=== PATIENT | male | born 1970 | race Caucasian/White ===

== ENCOUNTER 2021-10-25 06:35 | Emergency (ER) | payer MEDICAID ==
[~2021-10-25] VITALS: Ht 182.9 cm; Wt 92.1 kg
[2021-10-25 06:43] VITALS: BP 193/115
--- NOTE | 2021-10-25 06:45 | NUR ---
patient to bed 9 ambulatory
--- NOTE | 2021-10-25 06:50 | NUR ---
Patient BIB by family from home. C/O abdominal pain, nausea, vomitting x 3 days. Patient reported, had abdominal pain, nausea, vomitting since Monday or Monday. Seen by JALEN in [facility], Normal results (per patient . A/O, X4, abdominal pain, pain rate 10/10, bloating, nausea and vomitting.
--- NOTE | 2021-10-25 06:55 | NUR ---
Dr. Leung examining patient.
[2021-10-25] MEDS ORDERED: KETOROLAC 30 MG/ML VIAL IVP ONE (07:00)
[2021-10-25] MEDS ORDERED: NACL 0.9% 1,000 ML IV SCH (07:00)
[2021-10-25] MEDS ORDERED: ONDANSETRON 4 MG/2 ML VIAL IVP ONE (07:00)
--- NOTE | 2021-10-25 07:20 | NUR ---
Report given to KENAN Cox/Morris GRAYSON and endorse care of patient.
--- NOTE | 2021-10-25 07:20 | NUR ---
Report and continuation of care received from KENAN Brown.
[2021-10-25 07:21] LABS: BASOPHILS % (AUTO) 0.4 % (0.0-2.0); EOSINOPHILS % (AUTO) 0.4 % (0.0-4.0); HEMATOCRIT 44.5 % (36-52); HEMOGLOBIN 15.5 g/dL (12.0-18.0); LYMPHOCYTES % (AUTO) 12.2 % (20.5-51.1); MEAN CORPUSCULAR HEMOGLOBIN 30 pg (27-31); MEAN CORPUSCULAR HGB CONC 35 g/dL (33-37); MEAN CORPUSCULAR VOLUME 85.6 fL (80-94); MONOCYTES # (AUTO) 0.5 K/uL (0.8-1.0); MONOCYTES % (AUTO) 6.1 % (1.7-9.3); NEUTROPHILS # (AUTO) 6.3 K/uL (1.8-7.7); NEUTROPHILS % (AUTO) 80.9 % (42.2-75.2); PLATELET COUNT (AUTO) 260 K/uL (140-450); RED CELL DISTRIBUTION WIDTH 14.5 % (11.6-13.7); WHITE BLOOD COUNT (AUTO) 7.8 K/uL (4.8-10.8)
--- NOTE | 2021-10-25 07:45 | NUR ---
Pt presents laying on L side c/o pain in semi-fowlers position; states no relief after Toradol. Bed locked in lowest position, side rails x 1, call light in reach.
[2021-10-25 07:52] LABS: ALBUMIN 3.6 g/dL (3.4-5.0); ANION GAP 17.5 (8-16); CARBON DIOXIDE 22.3 mmol/L (21-32); CREATININE 1.5 mg/dL (0.6-1.3); POTASSIUM 3.8 mmol/L (3.5-5.1); TOTAL BILIRUBIN 0.8 mg/dL (0.0-1.0)
[2021-10-25 09:00] VITALS: BP 165/96
[2021-10-25] MEDS ORDERED: PROM25TA27 PO (09:28)
[2021-10-25] MEDS ORDERED: IBUP-2213 PO (09:28)
--- NOTE | 2021-10-25 09:45 | NUR ---
Patient discharged with v/s stable. Written and verbal after care instructions given and explained. Patient alert, oriented and verbalized understanding of instructions. Ambulatory with steady gait. All questions addressed prior to discharge. ID band removed. Patient advised to follow up with PMD. Rx of ibuprofen, promethazine given. Patient educated on indication of medication including possible reaction and side effects. Opportunity to ask questions provided and answered.
== END 2021-10-25 09:45 | disposition home or self-care (01) ==
LOC: MED 06:35
DX: R10.13 Epigastric pain (principal); R11.2 Nausea with vomiting, unspecified; E11.9 Type 2 diabetes mellitus without complications; I10 Essential (primary) hypertension
CPT/HCPCS: 36415; 80053; 83690; 85025; 96361; 96374; 96375; 99284; J1885; J2405

== ENCOUNTER 2022-01-04 09:30 | Emergency (ER) | payer MEDICAID ==
[~2022-01-04] VITALS: Ht 182.9 cm; Wt 82.6 kg
[~2022-01-04 09:30] MED LIST: ATOR10TA PO; LEVO750T51 PO; LISI-487 PO; LOPE-289 PO; METF-1253 PO; PANT40EC56 PO
[2022-01-04 09:32] VITALS: BP 153/112
[2022-01-04] MEDS ORDERED: NACL 0.9% 2,000 ML IV ONE (09:45)
[2022-01-04] MEDS ORDERED: ONDANSETRON 4 MG/2 ML VIAL IVP ONE (09:45)
--- NOTE | 2022-01-04 10:03 | NUR ---
ATTEMPTED ABG ON RIGHT RADIAL, UNABLE TO OBTAIN AT THIS TIME, WILL RETURN TO OBTAIN ABG FLOOR MOLDER NOTIFIED
[2022-01-04 10:24] LABS: BASOPHILS % (AUTO) 0.1 % (0.0-2.0); HEMATOCRIT 45.5 % (36-52); HEMOGLOBIN 15.3 g/dL (12.0-18.0); LYMPHOCYTES % (AUTO) 5.8 % (20.5-51.1); MEAN CORPUSCULAR HEMOGLOBIN 29 pg (27-31); MEAN CORPUSCULAR HGB CONC 34 g/dL (33-37); MEAN CORPUSCULAR VOLUME 86.7 fL (80-94); MONOCYTES # (AUTO) 1.3 K/uL (0.8-1.0); MONOCYTES % (AUTO) 7.8 % (1.7-9.3); NEUTROPHILS # (AUTO) 14.8 K/uL (1.8-7.7); NEUTROPHILS % (AUTO) 86.3 % (42.2-75.2); PLATELET COUNT (AUTO) 372 K/uL (140-450); RED BLOOD CELL COUNT(AUTO) 5.24 MIL/uL (4.20-6.10); RED CELL DISTRIBUTION WIDTH 16.4 % (11.6-13.7); WHITE BLOOD COUNT (AUTO) 17.1 K/uL (4.8-10.8)
--- NOTE | 2022-01-04 10:26 | NUR ---
51 Y/O MALE STATES HE WAS AT A LIBERTARIAN HE WAS DRINKING ALCOHOL AND HIS GIRLFRIEND GAVE HIM A TABLET TO TAKE. THE SUBSTANCE IS UNKNOWN AND ORIGIN IS UNKNOWN. PATIENT HAS HAD NAUSEA AND VOMITING AFTER CONSUMING.
[2022-01-04] MEDS ORDERED: KETOROLAC 15 MG/ML VIAL IVP ONE (10:35)
[2022-01-04] MEDS ORDERED: FAMOTIDINE 20 MG/2 ML VIAL IVP ONE (10:35)
[2022-01-04 11:23] LABS: APPEARANCE,URINE CLEAR (CLEAR); BILIRUBIN,URINE 2+ (NEGATIVE); BLOOD, URINE 1+ (NEGATIVE); COLOR,URINE YELLOW (YELLOW); LEUKOCYTE ESTERASE ,URINE NEGATIVE (NEGATIVE); NITRITE, URINE NEGATIVE (NEGATIVE); UGLUCOSE 3+ (NEGATIVE)
[2022-01-04 11:37] LABS: BARBITURATE, URINE NEGATIVE ng/ml (NEG <=200); BENZODIAZEPINE, URINE NEGATIVE ng/mL (NEG <=200); CANNABINOID, URINE POSITIVE ng/mL (NEG <=50); COCAINE, URINE POSITIVE ng/mL (NEG <=300); PHENCYCLIDINE SCREEN,URINE NEGATIVE ng/mL (NEG <=25)
[2022-01-04 11:38] LABS: OPIATE, URINE NEGATIVE ng/mL (NEG <=2000)
[2022-01-04 12:24] LABS: CALCIUM OXALATE CRYSTALS,UR None Seen /HPF (None Seen); RBC,URINE 0-5 /HPF (0-5); TRICHOMONAS,URINE None Seen /HPF (None Seen); TRIPLE PHOSPHATE CRYSTAL,UR None Seen /HPF (None Seen); URIC ACID CRYSTALS,URINE None Seen /HPF (None Seen); WBC,URINE 0-5 /HPF (0-5); YEAST,URINE Rare /HPF (None Seen)
[2022-01-04 12:25] LABS: COARSE GRANULAR CASTS,URINE None Seen /LPF (None Seen); FINE GRANULAR CASTS,URINE None Seen /LPF (None Seen); HYALINE CASTS, URINE None Seen /LPF (None Seen); OTHER CASTS, URINE None Seen /LPF (None Seen); OTHER CRYSTALS,URINE None Seen /HPF (None Seen); RED BLOOD CELL CASTS,URINE None Seen /LPF (None Seen); URINE AMORPHOUS URATE None Seen /HPF (None Seen); WAXY CASTS,URINE None Seen /LPF (None Seen)
[2022-01-04 14:12] LABS: ANION GAP 30.2 (8-16); ASPARTATE AMINOTRANSFERASE 15 U/L (15-37); CARBON DIOXIDE 19.5 mmol/L (21-32); CHLORIDE 87 mmol/L (98-107); CREATININE 2.1 mg/dL (0.6-1.3); GFR ARICAN-AMERICAN 43 mL/min (>90); POTASSIUM 3.7 mmol/L (3.5-5.1); SODIUM SERUM 133 mmol/L (136-145); UREA NITROGEN, BLOOD 33 mg/dL (7-18)
[2022-01-04 14:21] LABS: GLUCOSE 462 mg/dL (74-106)
[2022-01-04] MEDS ORDERED: INSULIN REGULAR, HUMAN 100 UNIT/ML VIAL SUBQ ONE ×2 (14:30→14:40)
[2022-01-04] MEDS ORDERED: NACL 0.9% 1,000 ML IV ONE (14:30)
[2022-01-04] MEDS ORDERED: INSULIN REGULAR, HUMAN 100 UNIT/ML VIAL IVP ONE (15:00)
[2022-01-04] MEDS ORDERED: METF-1253 PO (18:20)
[2022-01-04] MEDS ORDERED: GLIP10TA3 PO (18:21)
--- NOTE | 2022-01-04 19:43 | NUR ---
Patient discharged with v/s stable. Written and verbal after care instructions given and explained. Patient alert, oriented and verbalized understanding of instructions. Ambulatory with steady gait. All questions addressed prior to discharge. ID band removed. IV DISCONTINUED AND REMOVED. Patient advised to follow up with PMD. Rx of METFORMIN AND GLIPIZIDE given. Patient educated on indication of medication including possible reaction and side effects. Opportunity to ask questions provided and answered. MD AWARE OF BP.
[2022-01-04 19:45] VITALS: BP 151/101
== END 2022-01-04 19:43 | disposition home or self-care (01) ==
LOC: MED 09:30
DX: E11.9 Type 2 diabetes mellitus without complications (principal); K29.70 Gastritis, unspecified, without bleeding; I10 Essential (primary) hypertension; D72.829 Elevated white blood cell count, unspecified; F14.90 Cocaine use, unspecified, uncomplicated; Z72.89 Other problems related to lifestyle; Z90.49 Acquired absence of other specified parts of digestive tract; Z79.899 Other long term (current) drug therapy; Z79.2 Long term (current) use of antibiotics; Z88.8 Allergy status to other drugs, medicaments and biological substances
CPT/HCPCS: 36415; 36600; 71045; 80053; 80305; 81001; 82803; 82948; 83690; 84484; 85025; 93005; 96361; 96374; 96375; 99285; J1815; J1885; J2405; J3490; J7030

== ENCOUNTER 2022-01-05 10:49 | Emergency (ER) | payer MEDICAID ==
[~2022-01-05 10:49] MED LIST changes: +GLIP10TA3 PO
--- NOTE | 2022-01-05 10:57 | NUR ---
PT CALLED IN LOBBY. NO ANSWER.
--- NOTE | 2022-01-05 11:07 | NUR ---
PT CALLED IN LOBBY FOR SECOND TIME. NO ANSWER.
--- NOTE | 2022-01-05 11:17 | NUR ---
PT CALLED IN LOBBY FOR THIRD TIME. NO ANSWER.
== END 2022-01-05 10:57 | disposition left against medical advice (07) ==
LOC: MED 10:49
DX: R11.10 Vomiting, unspecified (principal); Z53.21 Procedure and treatment not carried out due to patient leaving prior to being seen by health care provider

== ENCOUNTER 2022-01-09 04:00 | Emergency (ER) | payer MEDICAID ==
[~2022-01-09] VITALS: Ht 182.9 cm; Wt 82.2 kg
[2022-01-09 04:07] VITALS: BP 146/106
[2022-01-09] MEDS: NACL 0.9% 1,000 ML IV ONE (04:59)
[2022-01-09] MEDS: ONDANSETRON 4 MG/2 ML VIAL IVP ONE (05:03)
[2022-01-09] MEDS ORDERED: DICYCLOMINE HCL LIQUID 10 MG/5 ML UDC ONE (05:06)
[2022-01-09] MEDS ORDERED: ALUMINUM HYD/MAG/SIMETHICONE 30 ML UDC ONE (05:06)
[2022-01-09] MEDS: DICYCLOMINE HCL LIQUID 20 MG, ALUMINUM HYD/MAG/SIMETHICONE 30 ML, LIDOCAINE VISCOUS 2% ... PO ONE ×3 (05:10)
[2022-01-09] MEDS: KETOROLAC 30 MG/ML VIAL IVP ONE (05:11)
[2022-01-09] MEDS ORDERED: ACET-8386 PO (05:33)
[2022-01-09 06:25] VITALS: BP 146/106
== END 2022-01-09 06:25 | disposition home or self-care (01) ==
LOC: MED 04:00
DX: R10.13 Epigastric pain (principal); R11.2 Nausea with vomiting, unspecified; R06.02 Shortness of breath; E11.9 Type 2 diabetes mellitus without complications; I10 Essential (primary) hypertension; Z90.49 Acquired absence of other specified parts of digestive tract; Z79.84 Long term (current) use of oral hypoglycemic drugs; Z79.899 Other long term (current) drug therapy; Z88.8 Allergy status to other drugs, medicaments and biological substances
CPT/HCPCS: 93005; 96361; 96374; 96375; 99284; J1885; J2405

== ENCOUNTER 2022-03-25 07:28 | Emergency (ER) | payer MEDICAID ==
[~2022-03-25] VITALS: Ht 182.9 cm; Wt 82.1 kg
[~2022-03-25 07:28] MED LIST changes: +ACET-8386 PO
[2022-03-25 07:37] VITALS: BP 146/106
[2022-03-25] MEDS ORDERED: FAMOTIDINE 20 MG TAB PO ONE (08:00)
[2022-03-25] MEDS ORDERED: ONDANSETRON 4 MG ODT PO ONE (08:00)
[2022-03-25] MEDS ORDERED: ALUMINUM HYD/MAG/SIMETHICONE 30 ML UDC PO ONE (08:00)
[2022-03-25] MEDS ORDERED: KETOROLAC 60 MG/2 ML VIAL IM ONE (08:00)
--- NOTE | 2022-03-25 08:12 | NUR ---
PT TAKEN TO XRAY VIA W/C
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
[2022-03-25] MEDS ORDERED: OMEP40EC24 PO (08:39)
[2022-03-25] MEDS ORDERED: ACET-8386 PO (08:39)
[2022-03-25] MEDS ORDERED: ONDA-188 SL (08:39)
[2022-03-25 08:49] VITALS: BP 159/114
--- NOTE | 2022-03-25 08:49 | NUR ---
Patient discharged with v/s stable. Written and verbal after care instructions ABOUT GASTRITIS AND RIB FRACTURE given and explained. Patient alert, oriented and verbalized understanding of instructions. Ambulatory with steady gait. All questions addressed prior to discharge. ID band removed. Patient advised to follow up with PMD. Rx of NORCO 5-325, PRILOSEC, ZOFRAN given. Patient educated on indication of medication including possible reaction and side effects. Opportunity to ask questions provided and answered. PT EDUCATED ON USE OF NARCOTICS, ADVISED TO AVOID ALCOHOL/DRIVING WHILE USING.
== END 2022-03-25 08:49 | disposition home or self-care (01) ==
LOC: MED 07:28
DX: S22.32XA Fracture of one rib, left side, initial encounter for closed fracture (principal); E11.43 Type 2 diabetes mellitus with diabetic autonomic (poly)neuropathy; K31.84 Gastroparesis; I10 Essential (primary) hypertension; F14.90 Cocaine use, unspecified, uncomplicated; K29.70 Gastritis, unspecified, without bleeding; K21.9 Gastro-esophageal reflux disease without esophagitis; Z79.84 Long term (current) use of oral hypoglycemic drugs; Z79.899 Other long term (current) drug therapy; Z88.8 Allergy status to other drugs, medicaments and biological substances; Z90.49 Acquired absence of other specified parts of digestive tract; W22.8XXA Striking against or struck by other objects, initial encounter; Y93.89 Activity, other specified; Y92.89 Other specified places as the place of occurrence of the external cause; Y99.8 Other external cause status
CPT/HCPCS: 71101; 96372; 99284; J1885; Q0162

== ENCOUNTER 2022-03-28 09:58 | Emergency (ER) | payer MEDICAID ==
[~2022-03-28] VITALS: Ht 182.9 cm; Wt 81.6 kg
[~2022-03-28 09:58] MED LIST changes: +OMEP40EC24 PO; +ONDA-188 SL
[2022-03-28 10:00] VITALS: BP 170/135
--- NOTE | 2022-03-28 10:05 | NUR ---
BLOOD SUGAR 381 AT THIS TIME.
--- NOTE | 2022-03-28 10:06 | NUR ---
pt amb to bed 4.
[2022-03-28] MEDS ORDERED: KETOROLAC 30 MG/ML VIAL IVP ONE (10:20)
[2022-03-28] MEDS ORDERED: ONDANSETRON 4 MG/2 ML VIAL IVP ONE (10:20)
[2022-03-28] MEDS: NACL 0.9% 1,000 ML IV SCH ×2 (10:25→10:35)
[2022-03-28 10:29] LABS: BASOPHILS % (AUTO) 0.5 % (0.0-2.0); EOSINOPHILS % (AUTO) 0.1 % (0.0-4.0); HEMATOCRIT 46.9 % (36-52); HEMOGLOBIN 16.2 g/dL (12.0-18.0); LYMPHOCYTES # (AUTO) 1.2 K/uL (2.0-11.5); LYMPHOCYTES % (AUTO) 13.5 % (20.5-51.1); MEAN CORPUSCULAR HEMOGLOBIN 30 pg (27-31); MEAN CORPUSCULAR HGB CONC 35 g/dL (33-37); MEAN CORPUSCULAR VOLUME 86.2 fL (80-94); MONOCYTES # (AUTO) 0.5 K/uL (0.8-1.0); MONOCYTES % (AUTO) 5.5 % (1.7-9.3); NEUTROPHILS # (AUTO) 6.9 K/uL (1.8-7.7); NEUTROPHILS % (AUTO) 80.4 % (42.2-75.2); PLATELET COUNT (AUTO) 329 K/uL (140-450); RED BLOOD CELL COUNT(AUTO) 5.44 MIL/uL (4.20-6.10); RED CELL DISTRIBUTION WIDTH 13.9 % (11.6-13.7); WHITE BLOOD COUNT (AUTO) 8.6 K/uL (4.8-10.8)
--- NOTE | 2022-03-28 10:35 | NUR ---
20G IV CATH PLACED IN R AC. LABS OBTAINED AND SENT
--- NOTE | 2022-03-28 10:35 | NUR ---
PATIENT IN WN , URINE OBTAINED AND SENT TO LAB
[2022-03-28 10:41] LABS: ALBUMIN 4.1 g/dL (3.4-5.0); ANION GAP 18.1 (8-16); CARBON DIOXIDE 25.6 mmol/L (21-32); CREATININE 1.9 mg/dL (0.6-1.3); POTASSIUM 3.7 mmol/L (3.5-5.1); TOTAL BILIRUBIN 0.9 mg/dL (0.0-1.0)
--- NOTE | 2022-03-28 10:42 | NUR ---
51YR OLD MAN BIB SELF C/O ABD PAIN / VOMITING X4 DAYS. PT IS A&OX4 . SKIN WARM PINK AND DRY. PT STATES HAVING A RIB CONTUSIONS 5 DAYS AGO. HAS CP AND SOB WITH INPIRASATION AND EXPIRATION. PAIN DUE TO RIB CONTUSIONS. PAIN LEVEL 10/10. ABD PAIN 10/10 MID ABD . DENIES PAIN WITH URINATION OR FLANK PAIN. NAUSEA AND VOMITING X4 DAYS. URINE OBTAINED . PT HAS DM. GLUC OF 302 HTN DM
[2022-03-28] MEDS ORDERED: MORPHINE SULFATE 4 MG/ML SYR IVP ONE (11:20)
[2022-03-28] MEDS ORDERED: GABA300C PO (11:29)
[2022-03-28] MEDS ORDERED: METF-1253 PO (11:29)
[2022-03-28] MEDS ORDERED: ONDA8TAB87 PO (11:29)
[2022-03-28 12:36] VITALS: BP 164/99
--- NOTE | 2022-03-28 12:36 | NUR ---
PT AMBULATED TO RESTROOM
--- NOTE | 2022-03-28 12:36 | NUR ---
Patient discharged with v/s stable. Written and verbal after care instructions given and explained. Patient alert, oriented and verbalized understanding of instructions. Ambulatory with steady gait. All questions addressed prior to discharge. ID band removed. Patient advised to follow up with PMD. Rx of NEURONTIN METFORMIN ZOFRAN given. Patient educated on indication of medication including possible reaction and side effects. Opportunity to ask questions provided and answered.
== END 2022-03-28 12:36 | disposition home or self-care (01) ==
LOC: MED 09:58
DX: R10.13 Epigastric pain (principal); R11.2 Nausea with vomiting, unspecified; K92.1 Melena; E11.9 Type 2 diabetes mellitus without complications; I10 Essential (primary) hypertension; Z79.84 Long term (current) use of oral hypoglycemic drugs; Z90.49 Acquired absence of other specified parts of digestive tract; Z79.899 Other long term (current) drug therapy; Z88.8 Allergy status to other drugs, medicaments and biological substances
CPT/HCPCS: 36415; 80053; 81002; 83690; 85025; 96361; 96374; 96375; 99284; J1885; J2270; J2405; J7030

== ENCOUNTER 2022-04-01 10:50 | Emergency (ER) | payer MEDICAID ==
[~2022-04-01] VITALS: Ht 182.9 cm; Wt 81.2 kg
[~2022-04-01 10:50] MED LIST changes: +GABA300C PO; +ONDA8TAB87 PO
[2022-04-01 11:15] VITALS: BP 148/123
--- NOTE | 2022-04-01 11:35 | NUR ---
PT AMBULATED WITH STEADY GAIT TO BED 11
[2022-04-01] MEDS ORDERED: ONDANSETRON 4 MG/2 ML VIAL IVP ONE (11:55)
--- NOTE | 2022-04-01 12:05 | NUR ---
Pt. AAOx4, ambulated to bed 11. pt c/o N/V/D x 1 week. pt was ER last week and complains that no relief from medication that was prescribed to him. Skin warm, dry and intact, no diaphoresis, no active vomiting at this time. Assessed abdomen, flat, bowel soundx4, non-tender. will contnue to monitor.
[2022-04-01 12:07] LABS: BASOPHILS # (AUTO) 0.1 K/uL (0.00-0.22); BASOPHILS % (AUTO) 0.7 % (0.0-2.0); EOSINOPHILS % (AUTO) 0.5 % (0.0-4.0); HEMATOCRIT 39.5 % (36-52); HEMOGLOBIN 13.6 g/dL (12.0-18.0); LYMPHOCYTES # (AUTO) 1.2 K/uL (2.0-11.5); LYMPHOCYTES % (AUTO) 16.2 % (20.5-51.1); MEAN CORPUSCULAR HEMOGLOBIN 30 pg (27-31); MEAN CORPUSCULAR HGB CONC 35 g/dL (33-37); MEAN CORPUSCULAR VOLUME 85.8 fL (80-94); MONOCYTES # (AUTO) 0.4 K/uL (0.8-1.0); MONOCYTES % (AUTO) 5.7 % (1.7-9.3); NEUTROPHILS # (AUTO) 5.7 K/uL (1.8-7.7); NEUTROPHILS % (AUTO) 76.9 % (42.2-75.2); PLATELET COUNT (AUTO) 294 K/uL (140-450); RED CELL DISTRIBUTION WIDTH 14.5 % (11.6-13.7); WHITE BLOOD COUNT (AUTO) 7.5 K/uL (4.8-10.8)
[2022-04-01 12:44] LABS: ALBUMIN 3.6 g/dL (3.4-5.0); ANION GAP 13.8 (8-16); CARBON DIOXIDE 25.2 mmol/L (21-32); CREATININE 1.4 mg/dL (0.6-1.3); MAGNESIUM 1.8 mg/dL (1.8-2.4); TOTAL BILIRUBIN 0.5 mg/dL (0.0-1.0)
[2022-04-01] MEDS ORDERED: MORPHINE SULFATE 10 MG/ML VIAL IVP ONE (14:00)
[2022-04-01] MEDS ORDERED: ONDA-188 PO (14:17)
--- NOTE | 2022-04-01 14:30 | NUR ---
pt. resting comfortably, asleep at this time. Will continue to monitor.
[2022-04-01 16:19] VITALS: BP 157/98
--- NOTE | 2022-04-01 16:27 | NUR ---
Patient discharged with v/s stable. Written and verbal after care instructions about Gastroparesis given and explained. Patient alert, oriented and verbalized understanding of instructions. Ambulatory with steady gait. All questions addressed prior to discharge. ID band removed. Patient advised to follow up with PMD. Rx of Zofran given. Patient educated on indication of medication including possible reaction and side effects. Opportunity to ask questions provided and answered. Aida preciado provided for pt.
== END 2022-04-01 16:27 | disposition home or self-care (01) ==
LOC: MED 10:50
DX: R10.13 Epigastric pain (principal); I10 Essential (primary) hypertension; E11.9 Type 2 diabetes mellitus without complications; R11.2 Nausea with vomiting, unspecified; Z79.84 Long term (current) use of oral hypoglycemic drugs; Z79.4 Long term (current) use of insulin; Z79.899 Other long term (current) drug therapy
CPT/HCPCS: 36415; 80053; 83690; 83735; 85025; 96374; 96375; 99284; J2270; J2405

== ENCOUNTER 2022-04-12 08:57 | Emergency (ER) | payer MEDICAID ==
[~2022-04-12] VITALS: Ht 182.9 cm; Wt 84.0 kg
[~2022-04-12 08:57] MED LIST changes: +ONDA-188 PO
[2022-04-12 09:14] VITALS: BP 209/142
--- NOTE | 2022-04-12 09:30 | NUR ---
PT AMB TO [facility]
--- NOTE | 2022-04-12 09:37 | NUR ---
BIB SELF C/O HEADACHE, ABDOMINAL PAIN, N/V/D X 3 DAYS. BP 209/142 AT THIS TIME. PMH: HTN
--- NOTE | 2022-04-12 09:40 | NUR ---
HX: DM, HTN BLOOD SUGAR 230 AT THIS TIME.
--- NOTE | 2022-04-12 10:04 | NUR ---
PT AMB TO BED 3.
[2022-04-12] MEDS ORDERED: FAMOTIDINE 20 MG/2 ML VIAL IVP ONE (10:15)
[2022-04-12] MEDS ORDERED: ONDANSETRON 4 MG/2 ML VIAL IVP ONE (10:15)
[2022-04-12] MEDS ORDERED: NACL 0.9% 1,000 ML IV SCH (10:15)
[2022-04-12] MEDS ORDERED: MORPHINE SULFATE 2 MG/ML SYR IVP ONE ×2 (10:15→12:35)
[2022-04-12 10:27] LABS: BASOPHILS % (AUTO) 0.5 % (0.0-2.0); EOSINOPHILS # (AUTO) 0.1 K/uL (0-0.4); EOSINOPHILS % (AUTO) 0.7 % (0.0-4.0); HEMATOCRIT 43.1 % (36-52); HEMOGLOBIN 14.6 g/dL (12.0-18.0); LYMPHOCYTES # (AUTO) 1.2 K/uL (2.0-11.5); LYMPHOCYTES % (AUTO) 12.8 % (20.5-51.1); MEAN CORPUSCULAR HEMOGLOBIN 29 pg (27-31); MEAN CORPUSCULAR HGB CONC 34 g/dL (33-37); MEAN CORPUSCULAR VOLUME 86.5 fL (80-94); MONOCYTES # (AUTO) 0.5 K/uL (0.8-1.0); MONOCYTES % (AUTO) 5.4 % (1.7-9.3); NEUTROPHILS # (AUTO) 7.4 K/uL (1.8-7.7); NEUTROPHILS % (AUTO) 80.6 % (42.2-75.2); PLATELET COUNT (AUTO) 257 K/uL (140-450); RED BLOOD CELL COUNT(AUTO) 4.98 MIL/uL (4.20-6.10); RED CELL DISTRIBUTION WIDTH 14.5 % (11.6-13.7); WHITE BLOOD COUNT (AUTO) 9.2 K/uL (4.8-10.8)
[2022-04-12 10:47] LABS: ANION GAP 15.8 (8-16); CARBON DIOXIDE 26.9 mmol/L (21-32); CREATININE 1.3 mg/dL (0.6-1.3); POTASSIUM 4.7 mmol/L (3.5-5.1); TOTAL BILIRUBIN 0.4 mg/dL (0.0-1.0)
--- NOTE | 2022-04-12 12:00 | NUR ---
PT ASKED FOR MORE PAIN MEDS; NOTIFIED THE DR. ALL PT NEEDS MEET AT THIS TIME.
[2022-04-12] MEDS ORDERED: METO-485 PO (12:30)
[2022-04-12] MEDS ORDERED: FAMO-92 PO (12:30)
[2022-04-12] MEDS ORDERED: METOCLOPRAMIDE 10 MG/2 ML INJ VIAL IVP ONE (12:35)
[2022-04-12 14:17] VITALS: BP 144/99
--- NOTE | 2022-04-12 14:18 | NUR ---
Patient discharged with v/s stable. Written and verbal after care instructions given and explained. Patient alert, oriented and verbalized understanding of instructions. Ambulatory with steady gait. All questions addressed prior to discharge. ID band removed. Patient advised to follow up with PMD. Rx of PEPCID AND REGLAN given. Patient educated on indication of medication including possible reaction and side effects. Opportunity to ask questions provided and answered.
== END 2022-04-12 14:18 | disposition home or self-care (01) ==
LOC: MED 08:57
DX: E11.43 Type 2 diabetes mellitus with diabetic autonomic (poly)neuropathy (principal); K31.84 Gastroparesis; I10 Essential (primary) hypertension; Z79.4 Long term (current) use of insulin; Z79.899 Other long term (current) drug therapy; Z90.49 Acquired absence of other specified parts of digestive tract; Z79.84 Long term (current) use of oral hypoglycemic drugs
CPT/HCPCS: 36415; 80053; 83690; 85025; 96361; 96374; 96375; 96376; 99285; J2270; J2405; J2765; J3490; J7030

== ENCOUNTER 2022-06-16 08:40 | Emergency (ER) | payer MEDICAID ==
[~2022-06-16] VITALS: Ht 182.9 cm; Wt 90.7 kg
[~2022-06-16 08:40] MED LIST changes: +FAMO-92 PO; -LEVO750T51 PO; +LEVO750T75 PO; +METO-485 PO
[2022-06-16 09:14] VITALS: BP 166/114
--- NOTE | 2022-06-16 09:14 | NUR ---
COVID ROCKY SWAB DONE.
--- NOTE | 2022-06-16 09:21 | NUR ---
PT AMBULATED TO ER BED 3
[2022-06-16 11:01] LABS: BASOPHILS # (AUTO) 0.1 K/uL (0.00-0.22); BASOPHILS % (AUTO) 0.5 % (0.0-2.0); EOSINOPHILS % (AUTO) 0.1 % (0.0-4.0); HEMATOCRIT 45.2 % (36-52); HEMOGLOBIN 15.2 g/dL (12.0-18.0); LYMPHOCYTES # (AUTO) 1.2 K/uL (2.0-11.5); LYMPHOCYTES % (AUTO) 9.6 % (20.5-51.1); MEAN CORPUSCULAR HEMOGLOBIN 28 pg (27-31); MEAN CORPUSCULAR HGB CONC 34 g/dL (33-37); MONOCYTES % (AUTO) 8.3 % (1.7-9.3); NEUTROPHILS % (AUTO) 81.5 % (42.2-75.2); PLATELET COUNT (AUTO) 325 K/uL (140-450); RED BLOOD CELL COUNT(AUTO) 5.38 MIL/uL (4.20-6.10); RED CELL DISTRIBUTION WIDTH 14.6 % (11.6-13.7); WHITE BLOOD COUNT (AUTO) 12.3 K/uL (4.8-10.8)
[2022-06-16 11:20] LABS: ALBUMIN 3.5 g/dL (3.4-5.0); ANION GAP 16.4 (8-16); ASPARTATE AMINOTRANSFERASE 13 U/L (15-37); CARBON DIOXIDE 28.4 mmol/L (21-32); CHLORIDE 90 mmol/L (98-107); CREATININE 1.6 mg/dL (0.6-1.3); GFR ARICAN-AMERICAN 59 mL/min (>90); GLUCOSE 358 mg/dL (74-106); POTASSIUM 3.8 mmol/L (3.5-5.1); SODIUM SERUM 131 mmol/L (136-145); TOTAL BILIRUBIN 0.8 mg/dL (0.0-1.0); UREA NITROGEN, BLOOD 36 mg/dL (7-18)
[2022-06-16] MEDS ORDERED: NACL 0.9% 1,000 ML IV ONE ×2 (12:35→13:35)
[2022-06-16] MEDS ORDERED: ALUMINUM HYD/MAG/SIMETHICONE 30 ML UDC PO ONE (13:35)
--- NOTE | 2022-06-16 13:53 | NUR ---
IV SL ESTABLISHED ON LAC 20G. WAITING FOR CT WITH IV CONTRAST THEN STARTED IVF NS0.9% BOLUS X 2L.
[2022-06-16] MEDS ORDERED: MORPHINE SULFATE 4 MG/ML SYR IVP ONE (14:40)
[2022-06-16] MEDS ORDERED: FAMOTIDINE 20 MG/2 ML VIAL IVP ONE (14:40)
--- NOTE | 2022-06-16 14:46 | NUR ---
PT STATED PAIN STILL. MD WAS NOTIFIED. MORPHINE AND PEPECID ORDERED AND GIVEN.
[2022-06-16] MEDS ORDERED: FAMO-90 PO (15:11)
[2022-06-16] MEDS ORDERED: SUCR1TAB35 PO (15:11)
--- NOTE | 2022-06-16 15:43 | NUR ---
PT WAS ASSESSED BY DR. NEGRON THEN D/C'D HOME. PER PT REQUESTED. [facility]BER WAS CALLED FOR TRANSPORTATION TO HOME. Patient discharged with v/s stable. Written and verbal after care instructions given and explained. Patient verbalized understanding. Ambulatory with steady gait. All questions addressed prior to discharge. Advised to follow up with PMD.
[2022-06-16 15:44] VITALS: BP 165/89
== END 2022-06-16 15:43 | disposition home or self-care (01) ==
LOC: MED 08:40
DX: N28.9 Disorder of kidney and ureter, unspecified (principal); R07.9 Chest pain, unspecified; R10.9 Unspecified abdominal pain; E87.1 Hypo-osmolality and hyponatremia; E11.9 Type 2 diabetes mellitus without complications; I10 Essential (primary) hypertension; K21.9 Gastro-esophageal reflux disease without esophagitis; E78.5 Hyperlipidemia, unspecified; Z79.84 Long term (current) use of oral hypoglycemic drugs; Z79.899 Other long term (current) drug therapy; Z88.8 Allergy status to other drugs, medicaments and biological substances
CPT/HCPCS: 36415; 71045; 71275; 74177; 80053; 84484; 85025; 87426; 93005; 96361; 96374; 96375; 99285; J2270; J3490; J7030; Q9967

== ENCOUNTER 2022-06-21 11:22 | Emergency (ER) | payer MEDICAID ==
[~2022-06-21] VITALS: Ht 182.9 cm; Wt 88.5 kg
[~2022-06-21 11:22] MED LIST changes: +FAMO-90 PO; +SUCR1TAB35 PO
[2022-06-21 11:33] VITALS: BP 225/125
--- NOTE | 2022-06-21 11:44 | NUR ---
MD AT BEDSIDE FOR EVALUATION
[2022-06-21] MEDS ORDERED: diphenhydrAMINE 50 MG/ML VIAL IVP ONE (11:50)
[2022-06-21] MEDS ORDERED: METOCLOPRAMIDE 10 MG/2 ML INJ VIAL IVP ONE (11:50)
[2022-06-21] MEDS ORDERED: DICYCLOMINE HCL LIQUID 20 MG, ALUMINUM HYD/MAG/SIMETHICONE 30 ML, LIDOCAINE VISCOUS 2% ... PO ONE ×3 (11:50)
[2022-06-21] MEDS ORDERED: NACL 0.9% 1,000 ML IV ONE (11:50)
[2022-06-21] MEDS ORDERED: ALUMINUM HYD/MAG/SIMETHICONE 30 ML UDC ONE (11:54)
[2022-06-21] MEDS ORDERED: LABETALOL 100 MG/20 ML VIAL IVP ONE (11:55)
[2022-06-21] MEDS ORDERED: DICYCLOMINE HCL LIQUID 10 MG/5 ML UDC ONE (11:55)
[2022-06-21 12:15] LABS: BASOPHILS % (AUTO) 0.4 % (0.0-2.0); EOSINOPHILS % (AUTO) 0.4 % (0.0-4.0); HEMATOCRIT 44.3 % (36-52); HEMOGLOBIN 15.1 g/dL (12.0-18.0); LYMPHOCYTES % (AUTO) 11.3 % (20.5-51.1); MEAN CORPUSCULAR HEMOGLOBIN 29 pg (27-31); MEAN CORPUSCULAR HGB CONC 34 g/dL (33-37); MONOCYTES # (AUTO) 0.6 K/uL (0.8-1.0); MONOCYTES % (AUTO) 6.7 % (1.7-9.3); NEUTROPHILS # (AUTO) 7.2 K/uL (1.8-7.7); NEUTROPHILS % (AUTO) 81.2 % (42.2-75.2); PLATELET COUNT (AUTO) 273 K/uL (140-450); RED BLOOD CELL COUNT(AUTO) 5.28 MIL/uL (4.20-6.10); RED CELL DISTRIBUTION WIDTH 14.7 % (11.6-13.7); WHITE BLOOD COUNT (AUTO) 8.9 K/uL (4.8-10.8)
--- NOTE | 2022-06-21 12:32 | NUR ---
51YO MALE PT C/O N/V/D AND SHARP/BURNING EPIGASTRIC PAIN X1WEEK . STATES RADIATION TO BACK AND DENIES BLOOD IN V/D. ABDOMEN NON TENDER OR DISTENDED. NOTES RECENT DX OF GASTROPARESIS. DENIES CHEST PAIN, FEVR, CHILLS. SOB. PT AAOX4, RESPIRATIONS EVEN AND UNLABORED. ON HAND TIRE TRIMMER. HX: DIABETES , HTN, GASTROPARESIS ALLERGIES: HYDROCHLOROTHIAZIDE
[2022-06-21 12:36] LABS: ALBUMIN 3.5 g/dL (3.4-5.0); ANION GAP 18.2 (8-16); ASPARTATE AMINOTRANSFERASE 11 U/L (15-37); CARBON DIOXIDE 22.3 mmol/L (21-32); CHLORIDE 99 mmol/L (98-107); CREATININE 1.5 mg/dL (0.6-1.3); GFR ARICAN-AMERICAN 64 mL/min (>90); GLUCOSE 364 mg/dL (74-106); LIPASE 225 U/L (73-393); POTASSIUM 4.5 mmol/L (3.5-5.1); SODIUM SERUM 135 mmol/L (136-145); TOTAL BILIRUBIN 0.5 mg/dL (0.0-1.0); UREA NITROGEN, BLOOD 26 mg/dL (7-18)
[2022-06-21] MEDS ORDERED: ONDA-188 PO (13:21)
[2022-06-21] MEDS ORDERED: SIME125T38 PO (13:21)
[2022-06-21] MEDS ORDERED: FAMO-92 PO (13:21)
[2022-06-21] MEDS ORDERED: ACETAMINOPHEN 100 ML IV PRN (13:30)
--- NOTE | 2022-06-21 14:06 | NUR ---
MADE AWARE OF PT BP
--- NOTE | 2022-06-21 15:20 | NUR ---
IV removed, catheter intact and site benign. Applied folded 4x4 gauze and tape to stop bleeding.
[2022-06-21 15:24] VITALS: BP 182/105
--- NOTE | 2022-06-21 15:24 | NUR ---
Patient discharged with v/s stable. Written and verbal after care instructions FOR GASTROPARESIS given and explained. Patient alert, oriented and verbalized understanding of instructions. Ambulatory with steady gait. All questions addressed prior to discharge. ID band removed. Patient advised to follow up with PMD. Rx of PEPCID , ZOFRAN AND MYLANTA given. Opportunity to ask questions provided and answered.
== END 2022-06-21 15:24 | disposition home or self-care (01) ==
LOC: MED 11:22
DX: K29.70 Gastritis, unspecified, without bleeding (principal); E11.43 Type 2 diabetes mellitus with diabetic autonomic (poly)neuropathy; K31.84 Gastroparesis; E11.65 Type 2 diabetes mellitus with hyperglycemia; I10 Essential (primary) hypertension; Z79.84 Long term (current) use of oral hypoglycemic drugs; Z79.899 Other long term (current) drug therapy; Z88.8 Allergy status to other drugs, medicaments and biological substances
CPT/HCPCS: 36415; 80053; 83690; 84484; 85025; 96361; 96365; 96375; 99285; J1200; J2765; J3490; J7030

== ENCOUNTER 2022-08-28 12:23 | Inpatient (IN) | payer MEDICAID ==
[~2022-08-28] VITALS: Ht 182.9 cm; Wt 85.4 kg
[2022-08-28] MEDS: BLOOD GLUCOSE MONITORING 1 DEV DEV FS SCH ×6 (01:30→23:30)
[~2022-08-28 12:23] MED LIST changes: -ACET-8386 PO; +ACET-8905 PO; +SIME125T38 PO
[2022-08-28 12:43] VITALS: BP 199/136
--- NOTE | 2022-08-28 12:56 | NUR ---
PT AMB TO BED 6.
--- NOTE | 2022-08-28 14:00 | NUR ---
52 y/o male bib self with c/o chest pain, headache, nausea, vomiting and diarrhea x 3 days. Patient denies any sick contacts. Patient has chest pain and headache. Per patient, he thinks his chest pain is from vomiting so much. Denies any fever or chills. Medical History: HTN, DM, HLD ALLERGY: HYDROCHLOROTHIAZIDE
[2022-08-28] MEDS ORDERED: KETOROLAC 30 MG/ML VIAL IVP ONE (14:20)
[2022-08-28] MEDS ORDERED: ONDANSETRON 4 MG/2 ML VIAL IVP ONE (14:20)
[2022-08-28] MEDS ORDERED: NACL 0.9% 1,000 ML IV SCH (14:20)
[2022-08-28] MEDS ORDERED: LABETALOL 20 MG/4 ML VIAL IVP ONE (14:25)
[2022-08-28 14:58] LABS: BASOPHILS % (AUTO) 0.3 % (0.0-2.0); EOSINOPHILS % (AUTO) 0.1 % (0.0-4.0); HEMATOCRIT 44.9 % (36-52); HEMOGLOBIN 15.2 g/dL (12.0-18.0); LYMPHOCYTES # (AUTO) 0.8 K/uL (2.0-11.5); LYMPHOCYTES % (AUTO) 8.6 % (20.5-51.1); MEAN CORPUSCULAR HEMOGLOBIN 28 pg (27-31); MEAN CORPUSCULAR HGB CONC 34 g/dL (33-37); MEAN CORPUSCULAR VOLUME 83.1 fL (80-94); MONOCYTES # (AUTO) 0.5 K/uL (0.8-1.0); MONOCYTES % (AUTO) 5.5 % (1.7-9.3); NEUTROPHILS # (AUTO) 8.4 K/uL (1.8-7.7); NEUTROPHILS % (AUTO) 85.5 % (42.2-75.2); PLATELET COUNT (AUTO) 281 K/uL (140-450); RED CELL DISTRIBUTION WIDTH 17.3 % (11.6-13.7); WHITE BLOOD COUNT (AUTO) 9.8 K/uL (4.8-10.8)
[2022-08-28 15:42] LABS: ALBUMIN 3.7 g/dL (3.4-5.0); ANION GAP 35.1 (8-16); ASPARTATE AMINOTRANSFERASE 17 U/L (15-37); CHLORIDE 94 mmol/L (98-107); CREATININE 1.5 mg/dL (0.6-1.3); GFR ARICAN-AMERICAN 64 mL/min (>90); GLUCOSE 289 mg/dL (74-106); LIPASE 135 U/L (73-393); POTASSIUM 3.8 mmol/L (3.5-5.1); SODIUM SERUM 133 mmol/L (136-145); THYROID STIMULATING HORMONE 0.38 uIU/mL (0.34-3.74); TOTAL BILIRUBIN 0.5 mg/dL (0.0-1.0); UREA NITROGEN, BLOOD 26 mg/dL (7-18)
[2022-08-28 15:44] LABS: CARBON DIOXIDE 7.7 mmol/L (21-32)
[2022-08-28 15:47] LABS: BARBITURATE, URINE NEGATIVE ng/ml (NEG <=200); BENZODIAZEPINE, URINE NEGATIVE ng/mL (NEG <=200); CANNABINOID, URINE POSITIVE ng/mL (NEG <=50); COCAINE, URINE NEGATIVE ng/mL (NEG <=300); OPIATE, URINE POSITIVE ng/mL (NEG <=2000); PHENCYCLIDINE SCREEN,URINE NEGATIVE ng/mL (NEG <=25)
[2022-08-28 16:01] LABS: APPEARANCE,URINE CLEAR (CLEAR); BILIRUBIN,URINE NEGATIVE (NEGATIVE); BLOOD, URINE 1+ (NEGATIVE); COLOR,URINE YELLOW (YELLOW); LEUKOCYTE ESTERASE ,URINE NEGATIVE (NEGATIVE); NITRITE, URINE NEGATIVE (NEGATIVE); PH,URINE 5.5 (5.0-9.0); UGLUCOSE 3+ (NEGATIVE)
--- NOTE | 2022-08-28 16:11 | NUR ---
Patient is laying in bed, alert and verbally responsive. All needs met by staff.
[2022-08-28 16:19] LABS: RBC,URINE 0-5 /HPF (0-5); WBC,URINE 0-5 /HPF (0-5)
[2022-08-28] MEDS ORDERED: MORPHINE SULFATE 4 MG/ML SYR IVP ONE (16:20)
[2022-08-28] MEDS ORDERED: INSULIN REGULAR, HUMAN 100 UNIT/ML VIAL IVP ONE (17:15)
[2022-08-28] MEDS ORDERED: KCL 20 MEQ/WATER INJ PREMIX 200 ML IV ONE (17:15)
[2022-08-28] MEDS ORDERED: INSULIN REGULAR, HUMAN 100 UNIT/ML VIAL SUBQ ONE (17:35)
[2022-08-28] MEDS ORDERED: DOCUSATE SODIUM 100 MG GELCAP PO PRN (17:50)
[2022-08-28] MEDS ORDERED: LORazepam 2 MG/ML VIAL IVP PRN (17:50)
[2022-08-28] MEDS ORDERED: ZOLPIDEM 10 MG TAB PO PRN (17:50)
[2022-08-28] MEDS ORDERED: MAG SULF 2000 MG/WATER PREMIX 50 ML IV PRN (17:50)
[2022-08-28] MEDS ORDERED: ACETAMINOPHEN 325 MG TAB PO PRN (17:50)
[2022-08-28] MEDS ORDERED: INSULIN REGULAR, HUMAN 100 UNIT in NACL 0.9% 100 ML IV SCH ×4 (17:55→20:30)
[2022-08-28] MEDS ORDERED: DEXTROSE 50% 50 ML SYR IVP PRN (17:55)
[2022-08-28] MEDS ORDERED: NACL 0.9% 1,000 ML IV ONE (18:00)
--- NOTE | 2022-08-28 19:10 | NUR ---
Report given to KENAN Lopez for transfer of care.
[2022-08-28] MEDS: MORPHINE SULFATE 2 MG/ML SYR IVP PRN (20:00)
[2022-08-28] MEDS: ONDANSETRON 4 MG/2 ML VIAL IVP PRN (20:04)
--- NOTE | 2022-08-28 20:30 | NUR ---
PHONE CALL FROM DR TARIQ, PER PHYSICIAN TO GO TO ER AND PUT ORDERS FOR ICU PT.CARRIED OUT.BONILLA RN, PRIMARY RN FOR PT AWARE OF NEW ORDERS
[2022-08-28 20:59] LABS: ANION GAP 11.2 (8-16); CARBON DIOXIDE 25.3 mmol/L (21-32); CREATININE 1.2 mg/dL (0.6-1.3); POTASSIUM 3.5 mmol/L (3.5-5.1)
[2022-08-28] MEDS: ATORVASTATIN 20 MG TAB PO SCH ×2 (21:00→21:35)
[2022-08-28] MEDS: DEXT 5% / NACL 0.45% 1,000 ML IV SCH (21:30)
--- NOTE | 2022-08-28 22:43 | NUR ---
Pt educated on Diabetes Management. Was asked if he monitors at home but he said that his home monitor was broken and hasn't been checking. Educated on the importance of frequent monitoring and the signs and symptoms of hyperglycemia, Also went over potential complications of DKA. Pt verbalized understanding. Educated on course of treatment including the insulin drip and frequency of glucose monitoring and BMP 2100- Pt assessment. Sitting up right on Room Air. AO x 4 and endoreses 6/10 pain on abdomen, Morphine was administered. Zofran also administered for reports of nausea. 20G IV inserted on Left AC. No complication noted
[2022-08-29] VITALS (17 sets, daily range): BP systolic 112–187; BP diastolic 72–97
[2022-08-29] MEDS: BLOOD GLUCOSE MONITORING 1 DEV DEV FS SCH ×9 (00:30→20:41)
[2022-08-29 00:49] LABS: ANION GAP 13.2 (8-16); CARBON DIOXIDE 25.2 mmol/L (21-32); CREATININE 1.4 mg/dL (0.6-1.3); POTASSIUM 3.4 mmol/L (3.5-5.1)
[2022-08-29 00:52] LABS: PHOSPHORUS 3.4 mg/dL (2.5-4.9)
[2022-08-29] MEDS: POTASSIUM CHLORIDE 10 MEQ TABER PO PRN (01:52)
[2022-08-29] MEDS: MORPHINE SULFATE 2 MG/ML SYR IVP PRN ×5 (02:01→21:40)
[2022-08-29] MEDS: DEXT 5% / NACL 0.45% 1,000 ML IV SCH (02:20)
[2022-08-29 04:37] LABS: BASOPHILS % (AUTO) 0.4 % (0.0-2.0); EOSINOPHILS # (AUTO) 0.1 K/uL (0-0.4); EOSINOPHILS % (AUTO) 0.9 % (0.0-4.0); LYMPHOCYTES # (AUTO) 1.3 K/uL (2.0-11.5); LYMPHOCYTES % (AUTO) 20.7 % (20.5-51.1); MEAN CORPUSCULAR HEMOGLOBIN 28 pg (27-31); MEAN CORPUSCULAR HGB CONC 33 g/dL (33-37); MEAN CORPUSCULAR VOLUME 83.9 fL (80-94); MONOCYTES # (AUTO) 0.8 K/uL (0.8-1.0); MONOCYTES % (AUTO) 12.3 % (1.7-9.3); NEUTROPHILS # (AUTO) 4.2 K/uL (1.8-7.7); NEUTROPHILS % (AUTO) 65.7 % (42.2-75.2); PLATELET COUNT (AUTO) 252 K/uL (140-450); RED BLOOD CELL COUNT(AUTO) 4.65 MIL/uL (4.20-6.10); RED CELL DISTRIBUTION WIDTH 17.2 % (11.6-13.7); WHITE BLOOD COUNT (AUTO) 6.4 K/uL (4.8-10.8)
[2022-08-29 04:38] LABS: ANION GAP 12.1 (8-16); CARBON DIOXIDE 26.4 mmol/L (21-32); CREATININE 1.3 mg/dL (0.6-1.3); POTASSIUM 3.5 mmol/L (3.5-5.1)
--- NOTE | 2022-08-29 06:25 | NUR ---
Hydralazine given for BP 186/101. Pt reports no s/s of lightheadedness or pain. Will reevaluate
[2022-08-29] MEDS: hydrALAZINE 20 MG/ML VIAL IVP PRN (06:45)
--- NOTE | 2022-08-29 07:25 | NUR ---
REPORT RECEIVED FROM BONILLA GRAYSON . TRANSFER OF CARE AT THIS TIME
--- NOTE | 2022-08-29 07:35 | NUR ---
Patient will be admitted to care of MD GUSMAN . Admited to ICU. Will go to room 4. Belongings list completed. Report to ALEIDA GRAYSON .
[2022-08-29] MEDS ORDERED: ZOLPIDEM 5 MG TAB PO PRN (07:45)
--- NOTE | 2022-08-29 07:50 | NUR ---
ADMISSION FROM E.D. PATIENT RECEIVED FROM [facility]. NO IV INSULIN GTT, NO IVF. CONSCIOUS, COHERENT. MD TARIQ WERE INFORMED BY NIGHT KENAN BELLAMY AND REPLIED TO STOP INSULIN GTT SINCE ANION GAP IS BELOW 12. ORDERED FOR DIET [facility] FOR LUNCH. PATIENT MISSED HIS PILLS SINCE HE DOES NOT HAVE REPLENISHED HIS PRESCRIPTION. 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 BLOOD SUGAR 134.
[2022-08-29] MEDS: lisinopriL 20 MG TAB PO SCH (08:03)
[2022-08-29 08:38] LABS: PHOSPHORUS 3.1 mg/dL (2.5-4.9)
[2022-08-29 08:43] LABS: ANION GAP 14.6 (8-16); CARBON DIOXIDE 24.1 mmol/L (21-32); CREATININE 1.1 mg/dL (0.6-1.3); POTASSIUM 3.7 mmol/L (3.5-5.1)
[2022-08-29] MEDS: ONDANSETRON 4 MG/2 ML VIAL IVP PRN (08:44)
[2022-08-29] MEDS ORDERED: INSULIN LANTUS 100 UNITS/ML 10 ML VIAL SUBQ SCH (09:10)
--- NOTE | 2022-08-29 09:39 | NUR ---
The patient's care was reviewed and supervised by [facility], RN.
--- NOTE | 2022-08-29 10:13 | NUR ---
PATIENT HAS BEEN SCREENED AND CATEGORIZED HIGH NUTRITION RISK. PATIENT WILL BE SEEN WITHIN 1-2 DAYS OF ADMISSION. 08/29/2212/13/[address]
[2022-08-29] MEDS ORDERED: GABAPENTIN 300 MG CAP PO PRN (11:15)
[2022-08-29] MEDS ORDERED: ACETAMINOPHEN 325 MG TAB PO PRN (11:25)
[2022-08-29] MEDS ORDERED: HYDROcodone/APAP 7.5/325 MG 1 TAB PO PRN (11:25)
[2022-08-29] MEDS ORDERED: ONDANSETRON 4 MG/2 ML VIAL IVP PRN (11:25)
[2022-08-29] MEDS ORDERED: NACL 0.9% 1,000 ML IV SCH (11:25)
[2022-08-29] MEDS: INSULIN LISPRO SLIDING SCALE 100 UNITS/ML VIAL SUBQ PRN (12:27)
[2022-08-29 12:37] LABS: ANION GAP 10.8 (8-16); CARBON DIOXIDE 23.7 mmol/L (21-32); POTASSIUM 3.5 mmol/L (3.5-5.1)
[2022-08-29 12:40] LABS: PROTHROMBIN TIME 10.2 secs (10.8-13.4)
[2022-08-29 12:47] LABS: MAGNESIUM 1.7 mg/dL (1.8-2.4); PHOSPHORUS 2.9 mg/dL (2.5-4.9)
[2022-08-29 12:55] LABS: CHOL/HDL RATIO 4.7 (1-4.5); FREE T4 (FREE THYROXINE) 1.2 ng/dL (0.76-1.46); THYROID STIMULATING HORMONE 0.17 uIU/mL (0.34-3.74)
[2022-08-29 16:30] LABS: ANION GAP 11.1 (8-16); CARBON DIOXIDE 26.6 mmol/L (21-32); CREATININE 1.2 mg/dL (0.6-1.3); POTASSIUM 3.7 mmol/L (3.5-5.1)
[2022-08-29] MEDS: glipiZIDE 10 MG TAB PO SCH (17:23)
[2022-08-29] MEDS: metFORMIN 500 MG TAB PO SCH (17:24)
--- NOTE | 2022-08-29 19:10 | NUR ---
Received report from ARSALAN Trinidad MEDICAL CLERICAL ASSISTANT, Questions answered. Initial assessment done, please see Complete Physical flowsheet.
--- NOTE | 2022-08-29 19:30 | NUR ---
PT. HANDED OVER TO NIGHT KENAN Yao DOWNGRADED TO TELEMETRY STATUS. AC/HS ACCUCHECK. CCHO DIET. NO NAUSEA VOMITING NO DIARRHEA. HAD FOOD. PRN INSULIN. GOOD URINE OUTPUT. GIVEN TOTAL PAIN MEDS X 3. PAIN 8/10 THEN GETS DOWN ABLE TO SLEEP. NO WOUND.
[2022-08-29 20:26] LABS: ANION GAP 10.8 (8-16); CARBON DIOXIDE 26.9 mmol/L (21-32); CREATININE 1.3 mg/dL (0.6-1.3); POTASSIUM 3.7 mmol/L (3.5-5.1)
[2022-08-29] MEDS: ATORVASTATIN 20 MG TAB PO SCH (20:40)
[2022-08-29] MEDS: DOCUSATE SODIUM 100 MG GELCAP PO SCH (20:41)
[2022-08-29] MEDS: FAMOTIDINE 20 MG TAB PO SCH (20:42)
[2022-08-29] MEDS ORDERED: NON-FORMULARY ITEM (Metformin HCl (Metformin Hcl) 1 TAB) PO SCH ×2 (21:00)
[2022-08-29] MEDS ORDERED: PANTOPRAZOLE 40 MG TABEC PO SCH (21:00)
--- NOTE | 2022-08-29 21:00 | NUR ---
Due medications given, tolerated well. Will continue to monitor for any possible adverse reactions that may occur. Addendum: 08/30/22 at 0126 by Agency Chayito GRAYSON RN BS= 106 mg/dl, No coverage given as Sliding Scale protocol ordered.
--- NOTE | 2022-08-29 21:40 | NUR ---
Patient complaint of Generalized pain, PS= 7/10, aching, non-radiating, given Morphine 2mg IVP. Tolerated well.
[2022-08-30] VITALS (7 sets, daily range): BP systolic 131–158; BP diastolic 74–99
--- NOTE | 2022-08-30 | NUR ---
Patient sleeping soundly, No pain or discomfort observed, Turn & repositions self. No cardio-respiratory distress noted at this time.
[2022-08-30 00:47] LABS: CARBON DIOXIDE 26.4 mmol/L (21-32); CREATININE 1.3 mg/dL (0.6-1.3); POTASSIUM 3.4 mmol/L (3.5-5.1)
--- NOTE | 2022-08-30 03:00 | NUR ---
K+ Level= 3.4 given K-dur 40meq ( as Standing order for K+=<3.5).
[2022-08-30] MEDS: POTASSIUM CHLORIDE 10 MEQ TABER PO PRN (03:27)
[2022-08-30] MEDS: MORPHINE SULFATE 2 MG/ML SYR IVP PRN ×2 (05:01→14:00)
[2022-08-30 06:07] LABS: BASOPHILS % (AUTO) 0.7 % (0.0-2.0); EOSINOPHILS # (AUTO) 0.2 K/uL (0-0.4); HEMATOCRIT 36.4 % (36-52); HEMOGLOBIN 12.4 g/dL (12.0-18.0); LYMPHOCYTES # (AUTO) 2.1 K/uL (2.0-11.5); LYMPHOCYTES % (AUTO) 32.4 % (20.5-51.1); MEAN CORPUSCULAR HEMOGLOBIN 28 pg (27-31); MEAN CORPUSCULAR HGB CONC 34 g/dL (33-37); MONOCYTES # (AUTO) 0.6 K/uL (0.8-1.0); NEUTROPHILS # (AUTO) 3.6 K/uL (1.8-7.7); NEUTROPHILS % (AUTO) 54.9 % (42.2-75.2); PLATELET COUNT (AUTO) 229 K/uL (140-450); RED BLOOD CELL COUNT(AUTO) 4.38 MIL/uL (4.20-6.10); WHITE BLOOD COUNT (AUTO) 6.5 K/uL (4.8-10.8)
[2022-08-30 06:24] LABS: ANION GAP 11.4 (8-16); CARBON DIOXIDE 26.6 mmol/L (21-32)
--- NOTE | 2022-08-30 06:48 | NUR ---
Total care given, pericare done, change gown, linen & chaulks. Made clean, Dry & comfortable.
--- NOTE | 2022-08-30 07:27 | NUR ---
Report given to ARSALAN Trinidad WEARING APPAREL ASSEMBLER. All Questions answered.
--- NOTE | 2022-08-30 07:30 | NUR ---
RECEIVED PATIENT FROM NIGHT KENAN Yao SLEEPING, ROUSABLE, IVF NORMAL SALINE AT 50 MLS/HR. [facility] DIET, USES BEDSIDE COMMODE TO GO TO THE BATHROOM. VOIDS USING URINAL. ROOM AIR, SpO2 96-99%. AC/HS ACCUCHECK.
[2022-08-30] MEDS: BLOOD GLUCOSE MONITORING 1 DEV DEV FS SCH ×2 (07:50→12:00)
[2022-08-30] MEDS: INSULIN LISPRO SLIDING SCALE 100 UNITS/ML VIAL SUBQ PRN (07:59)
[2022-08-30] MEDS: glipiZIDE 10 MG TAB PO SCH (08:03)
[2022-08-30] MEDS: metFORMIN 500 MG TAB PO SCH (08:13)
[2022-08-30] MEDS: lisinopriL 20 MG TAB PO SCH (08:20)
[2022-08-30] MEDS: FAMOTIDINE 20 MG TAB PO SCH (08:20)
[2022-08-30] MEDS: DOCUSATE SODIUM 100 MG GELCAP PO SCH (08:21)
[2022-08-30] MEDS ORDERED: NON-FORMULARY ITEM (Omeprazole* (Prilosec*) 40 MG) PO SCH (09:00)
[2022-08-30] MEDS ORDERED: NON-FORMULARY ITEM (Famotidine* (Pepcid*) 40 MG) PO SCH (09:00)
[2022-08-30] MEDS ORDERED: PANTOPRAZOLE 40 MG INJ VIAL IVP SCH (09:00)
[2022-08-30] MEDS ORDERED: GABA300C PO (09:12)
[2022-08-30] MEDS ORDERED: LISI-487 PO (09:12)
[2022-08-30] MEDS ORDERED: ATOR10TA PO (09:12)
[2022-08-30] MEDS ORDERED: METF-1253 PO (09:12)
[2022-08-30] MEDS ORDERED: GLIP10TE PO (09:12)
[2022-08-30] MEDS ORDERED: FAMO-92 PO (09:12)
--- NOTE | 2022-08-30 12:32 | NUR ---
08/30/22 RD INITIAL ASSESSMENT COMPLETED PLEASE REFER TO NUTRITION ASSESSMENT UNDER CARE ACTIVITY FOR ESTIMATED NUTRITIONAL NEEDS. 1. CONTINUE [id number] DIET TOLERATED 2. MONITOR GI SYMPTOMS -RECOMMEND BANATROL 2 X DAY FOR DIARRHEA 3. RD TO FOLLOW-UP 7 DAYS, LOW RISK REVIEWED BY LAMIN WELLER RD
[2022-08-30] MEDS: hydrALAZINE 20 MG/ML VIAL IVP PRN (14:51)
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
== END 2022-08-30 16:30 | disposition home or self-care (01) | DRG 420 ==
LOC: MED 12:23 → MTU 17:49 → MIC 08-29 06:43
PROVIDERS: ADMIT Family Medicine; ATTEND Family Medicine
DX: E11.10 Type 2 diabetes mellitus with ketoacidosis without coma (principal); E78.00 Pure hypercholesterolemia, unspecified; E86.0 Dehydration; I87.8 Other specified disorders of veins; I10 Essential (primary) hypertension; F12.10 Cannabis abuse, uncomplicated; K21.9 Gastro-esophageal reflux disease without esophagitis; Z20.822 Contact with and (suspected) exposure to COVID-19; Z88.8 Allergy status to other drugs, medicaments and biological substances; Z90.49 Acquired absence of other specified parts of digestive tract; Z83.3 Family history of diabetes mellitus; Z82.49 Family history of ischemic heart disease and other diseases of the circulatory system; Z91.14 Patient's other noncompliance with medication regimen; Z79.4 Long term (current) use of insulin
CPT/HCPCS: 36415; 36600; 71045; 80048; 80053; 80305; 81001; 82009; 82150; 82803; 82948; 83036; 83605; 83690; 83735; 83880; 83935; 84100; 84439; 84443; 84484; 85025; 85379; 85610; 85730; 87040; 87081; 96361; 96372; 96374; 96375; 99291; C9113; J0360; J1815; J1885; J2270; J2405; J3475; J3480; J3490; J7030; Q0092

== ENCOUNTER 2022-09-21 09:33 | Emergency (ER) | payer MEDICAID ==
[~2022-09-21] VITALS: Ht 182.9 cm; Wt 86.2 kg
[~2022-09-21 09:33] MED LIST changes: -ACET-8905 PO; -FAMO-90 PO; +GLIP10TE PO; -LEVO750T75 PO; -LOPE-289 PO; -METO-485 PO; -OMEP40EC24 PO; -ONDA-188 PO; -ONDA-188 SL; -ONDA8TAB87 PO; -PANT40EC56 PO; -SIME125T38 PO; -SUCR1TAB35 PO
[2022-09-21 09:46] VITALS: BP 136/91
--- NOTE | 2022-09-21 09:48 | NUR ---
PT AMBULATED TO LOBBY
--- NOTE | 2022-09-21 09:49 | NUR ---
52/M WALKED IN REQUESTING MED REFILLS FOR GLIPIZIDE 10MG, [id number], AND [id number]. PT STATES NO PCP UNTIL END OF SEPTEMBER. DENIES ANY COMPLAINTS AT THIS TIME. AAO4, AMBULATORY, VITALS STABLE PMH: HTN, DM, GASTROPARESIS
[2022-09-21] MEDS ORDERED: LISI20TA29 PO (11:12)
[2022-09-21] MEDS ORDERED: GLIP10TA12 PO (11:12)
[2022-09-21] MEDS ORDERED: FAMO-92 PO (11:12)
--- NOTE | 2022-09-21 11:20 | NUR ---
CALLED PT IN LOBBY FOR DISCHARGE; NO ANSWER
--- NOTE | 2022-09-21 11:26 | NUR ---
PATIENT NO ANSWER IN LOBBY / OUTSIDE ER LOBBY
--- NOTE | 2022-09-21 11:31 | NUR ---
PATIENT LEFT WITHOUT DISCHARGE PAPERWORK.
--- NOTE | 2022-09-21 11:31 | NUR ---
3RD CALL IN LOBBY NO ANSWER
--- NOTE | 2022-09-21 11:31 | NUR ---
Biju lambert in ED - 09/21/22 at 1416 by SULLY PATIENT ELOPED FROM FACILITY. DISCHARGE INSTRUCTIONS NOT GIVEN TO PATIENT. DR. BOSTONIED.
== END 2022-09-21 11:31 | disposition home or self-care (01) ==
LOC: MED 09:33
DX: E11.43 Type 2 diabetes mellitus with diabetic autonomic (poly)neuropathy (principal); K31.84 Gastroparesis; I10 Essential (primary) hypertension; Z76.0 Encounter for issue of repeat prescription; Z79.84 Long term (current) use of oral hypoglycemic drugs; Z79.899 Other long term (current) drug therapy; Z88.8 Allergy status to other drugs, medicaments and biological substances
CPT/HCPCS: 99281

== ENCOUNTER 2022-09-30 10:35 | Inpatient (IN) | payer MEDICAID ==
[~2022-09-30] VITALS: Ht 182.9 cm; Wt 86.2 kg
[~2022-09-30 10:35] MED LIST changes: +GLIP10TA12 PO; +LISI20TA29 PO
[2022-09-30 10:57] VITALS: BP 194/120
--- NOTE | 2022-09-30 11:38 | NUR ---
PT RECEIVED, CARE ASSUMED. PT PRESENTS SELF TO ER WITH C/O ABDO PAIN N/V/D X 2 DAYS. COLLECTED URINE. AWAITING TO BE SEEN BY
[2022-09-30] MEDS ORDERED: ONDANSETRON 4 MG/2 ML VIAL IVP ONE ×3 (11:50→17:55)
[2022-09-30] MEDS ORDERED: NACL 0.9% 1,000 ML IV SCH (11:50)
[2022-09-30] MEDS ORDERED: NACL 0.9% 1,000 ML IV ONE ×2 (12:00→14:25)
[2022-09-30] MEDS ORDERED: METOCLOPRAMIDE 10 MG/2 ML INJ VIAL IVP ONE (12:00)
[2022-09-30 12:01] LABS: BASOPHILS # (AUTO) 0.1 K/uL (0.00-0.22); BASOPHILS % (AUTO) 0.5 % (0.0-2.0); EOSINOPHILS % (AUTO) 0.2 % (0.0-4.0); HEMATOCRIT 41.6 % (36-52); HEMOGLOBIN 14.6 g/dL (12.0-18.0); LYMPHOCYTES # (AUTO) 0.7 K/uL (2.0-11.5); LYMPHOCYTES % (AUTO) 7.1 % (20.5-51.1); MEAN CORPUSCULAR HEMOGLOBIN 30 pg (27-31); MEAN CORPUSCULAR HGB CONC 35 g/dL (33-37); MEAN CORPUSCULAR VOLUME 84.7 fL (80-94); MONOCYTES # (AUTO) 0.4 K/uL (0.8-1.0); MONOCYTES % (AUTO) 4.2 % (1.7-9.3); NEUTROPHILS # (AUTO) 8.8 K/uL (1.8-7.7); PLATELET COUNT (AUTO) 279 K/uL (140-450); RED BLOOD CELL COUNT(AUTO) 4.91 MIL/uL (4.20-6.10); RED CELL DISTRIBUTION WIDTH 17.4 % (11.6-13.7)
[2022-09-30 12:20] LABS: ALBUMIN 4.5 g/dL (3.4-5.0); ANION GAP 18.3 (8-16); CARBON DIOXIDE 23.4 mmol/L (21-32); CREATININE 1.5 mg/dL (0.6-1.3); POTASSIUM 3.7 mmol/L (3.5-5.1); TOTAL BILIRUBIN 0.5 mg/dL (0.0-1.0)
[2022-09-30] MEDS ORDERED: ALUMINUM HYD/MAG/SIMETHICONE 30 ML UDC PO ONE (12:55)
[2022-09-30 13:51] LABS: APPEARANCE,URINE CLEAR (CLEAR); BILIRUBIN,URINE NEGATIVE (NEGATIVE); BLOOD, URINE 1+ (NEGATIVE); COLOR,URINE YELLOW (YELLOW); LEUKOCYTE ESTERASE ,URINE NEGATIVE (NEGATIVE); NITRITE, URINE NEGATIVE (NEGATIVE); UGLUCOSE 3+ (NEGATIVE)
[2022-09-30 14:02] LABS: RBC,URINE 0-5 /HPF (0-5); WBC,URINE 0-5 /HPF (0-5)
[2022-09-30] MEDS ORDERED: MORPHINE SULFATE 4 MG/ML SYR IVP ONE (14:30)
[2022-09-30] MEDS ORDERED: MAG SULF 2000 MG/WATER PREMIX 50 ML IV PRN (14:55)
[2022-09-30] MEDS ORDERED: LORazepam 2 MG/ML VIAL IVP PRN (14:55)
[2022-09-30] MEDS ORDERED: POTASSIUM CHLORIDE 10 MEQ TABER PO PRN (14:55)
[2022-09-30] MEDS ORDERED: DOCUSATE SODIUM 100 MG GELCAP PO PRN (14:55)
[2022-09-30] MEDS ORDERED: ACETAMINOPHEN 325 MG TAB PO PRN (14:55)
[2022-09-30] MEDS ORDERED: DEXTROSE 50% 50 ML SYR IVP PRN (14:55)
[2022-09-30] MEDS ORDERED: ZOLPIDEM 5 MG TAB PO PRN (15:00)
[2022-09-30 15:23] LABS: ACETONE, SERUM NEGATIVE (NEGATIVE)
[2022-09-30] MEDS: NACL 0.9% 1,000 ML IV SCH (15:55)
[2022-09-30] MEDS: BLOOD GLUCOSE MONITORING 1 DEV DEV FS SCH ×2 (17:42→21:28)
--- NOTE | 2022-09-30 17:43 | NUR ---
ACCU CHECK 186
--- NOTE | 2022-09-30 19:25 | NUR ---
Biju lambert in [facility] - 09/30/22 at 1926 by [facility] TRANSPORT HERE
[2022-09-30] MEDS: ONDANSETRON 4 MG/2 ML VIAL IVP PRN (20:33)
[2022-09-30] MEDS: MORPHINE SULFATE 2 MG/ML SYR IVP PRN (20:33)
--- NOTE | 2022-09-30 20:34 | NUR ---
C/O NAUSEA AND PAIN, MEDICATED ORDERED
[2022-09-30] MEDS: ATORVASTATIN 20 MG TAB PO SCH (21:28)
--- NOTE | 2022-10-01 | NUR ---
RESTING WITYH EYES CLOSED, RESPIRATIONS REGULAR AND UNLABORED
[2022-10-01] MEDS: MORPHINE SULFATE 2 MG/ML SYR IVP PRN ×4 (01:02→22:04)
--- NOTE | 2022-10-01 04:00 | NUR ---
AWAKE, C/O NAUSEA, MEDICATED ORDERED
[2022-10-01 06:53] LABS: BASOPHILS % (AUTO) 0.3 % (0.0-2.0); EOSINOPHILS % (AUTO) 0.4 % (0.0-4.0); HEMATOCRIT 37.5 % (36-52); HEMOGLOBIN 13.1 g/dL (12.0-18.0); LYMPHOCYTES # (AUTO) 1.1 K/uL (2.0-11.5); LYMPHOCYTES % (AUTO) 10.6 % (20.5-51.1); MEAN CORPUSCULAR HEMOGLOBIN 29 pg (27-31); MEAN CORPUSCULAR HGB CONC 35 g/dL (33-37); MONOCYTES # (AUTO) 0.9 K/uL (0.8-1.0); MONOCYTES % (AUTO) 8.8 % (1.7-9.3); NEUTROPHILS # (AUTO) 8.2 K/uL (1.8-7.7); NEUTROPHILS % (AUTO) 79.9 % (42.2-75.2); PLATELET COUNT (AUTO) 248 K/uL (140-450); RED BLOOD CELL COUNT(AUTO) 4.46 MIL/uL (4.20-6.10); RED CELL DISTRIBUTION WIDTH 17.5 % (11.6-13.7); WHITE BLOOD COUNT (AUTO) 10.3 K/uL (4.8-10.8)
--- NOTE | 2022-10-01 07:27 | NUR ---
REPORT RECEIVED FROM JOHANA GRAYSON. ASSUMED CARE AT THIS TIME
[2022-10-01 07:35] LABS: ANION GAP 14.8 (8-16); CARBON DIOXIDE 26.6 mmol/L (21-32); CREATININE 1.3 mg/dL (0.6-1.3); POTASSIUM 3.4 mmol/L (3.5-5.1)
[2022-10-01] MEDS: NACL 0.9% 1,000 ML IV SCH ×3 (07:37→22:42)
[2022-10-01] MEDS: BLOOD GLUCOSE MONITORING 1 DEV DEV FS SCH ×4 (07:42→22:00)
[2022-10-01] MEDS: INSULIN LISPRO SLIDING SCALE 100 UNITS/ML VIAL SUBQ PRN ×2 (08:01→12:09)
[2022-10-01] MEDS: hydrALAZINE 20 MG/ML VIAL IVP PRN ×2 (08:04→09:38)
--- NOTE | 2022-10-01 08:05 | NUR ---
pt provided w/ breakfast. pt awake and eating in bed
[2022-10-01] MEDS: ONDANSETRON 4 MG/2 ML VIAL IVP PRN ×2 (08:15→18:04)
[2022-10-01] MEDS ORDERED: PANTOPRAZOLE 40 MG INJ VIAL IVP SCH (09:00)
[2022-10-01] MEDS: lisinopriL 20 MG TAB PO SCH (09:30)
[2022-10-01] MEDS ORDERED: cefTRIAXone 1,000 MG VIAL ONE (14:30)
--- NOTE | 2022-10-01 15:49 | NUR ---
500ML CLEAR YELLOW URINE COLLECTED AND EMPTIED VIA BEDSIDE URINAL
--- NOTE | 2022-10-01 15:50 | NUR ---
PT AMBULATORY TO RESTROOM
--- NOTE | 2022-10-01 15:50 | NUR ---
pt provided w/ hygiene products. left at bedside
--- NOTE | 2022-10-01 15:59 | NUR ---
PT AMBULATED BACK TO ROOM
--- NOTE | 2022-10-01 17:06 | NUR ---
pt with new acid reflux onset. MD GUSMAN MADE AWARE
--- NOTE | 2022-10-01 17:14 | NUR ---
Biju lambert in [facility] - 10/01/22 at 1731 by PHSEP WRITTEN ORDERS RECEIVED FROM MD GUSMAN. ORDERS CONFIRMED AND CARRIED OUT.
--- NOTE | 2022-10-01 17:14 | NUR ---
WRITTEN ORDERS RECEIVED FROM MD GUSMAN. ORDERS CONFIRMED AND CARRIED OUT. PROTONIX 40MG IVP BID Addendum: 10/01/22 at 1753 by PHSEP " START NOW , SKIP 2100"
[2022-10-01] MEDS ORDERED: PANTOPRAZOLE 40 MG INJ VIAL ONE (17:58)
[2022-10-01] MEDS: PROMETHAZINE 25 MG TAB PO SCH ×2 (18:02→18:03)
[2022-10-01] MEDS: PANTOPRAZOLE 40 MG INJ VIAL IVP SCH ×2 (18:07→21:00)
--- NOTE | 2022-10-01 19:21 | NUR ---
REPORT GIVEN TO SADIA AVILES. TRANSFER OF CARE AT THIS TIME
--- NOTE | 2022-10-01 19:42 | NUR ---
PT RESTING IN BED WITH HOB ELEVATED. PT ON BEDSIDE NEEDLE LOOM SETTER. ADMITTED TO TELE AND HOLDING PT UNTIL BED ASSIG GIVEN. PT IS A&OX4. LOWER ABD PAIN 8/10 SHARP PAIN. DENIES CP OR SOB. HX OF GASTRITIS . DENIES N/V AT THIS TIME. PENDING BED STATUS TO TRANSPORT PT TO [facility]. BED AT LOWEST POSITION SIDE RAILS UP X2
--- NOTE | 2022-10-01 19:59 | NUR ---
DR LONDON CALLED GAVE ORDERS FOR LAB LFT PANEL. ORDERS RECIEVED
[2022-10-01 20:19] LABS: ALBUMIN 4.1 g/dL (3.4-5.0); BILIRUBIN,DIRECT 0.2 mg/dL (0.0-0.3); TOTAL BILIRUBIN 0.5 mg/dL (0.0-1.0)
--- NOTE | 2022-10-01 21:45 | NUR ---
0730 edg in the morning.
[2022-10-01] MEDS: LORazepam 0.5 MG TAB PO SCH (22:00)
[2022-10-01] MEDS: ATORVASTATIN 20 MG TAB PO SCH (22:00)
--- NOTE | 2022-10-01 22:48 | NUR ---
REPORT GIVEN TO BLANK AVILES
[2022-10-01 22:50] VITALS: BP 165/93
--- NOTE | 2022-10-01 22:50 | NUR ---
Patient arrived on gurney but able to ambulate. patienT ao x4. ROOM AIR IV FLUUIDS WILL CVONTINUE FROM ORDER. FREDDY IS ABLE TO EXPLAIN WHY HE IS HERE. INFORMED OF NPO STATUS FOR PROCEDURE IN THE AM. ORIENTED TO ROOM AND BED FUNCTION. SIDERAIOS UP X2 CALL LIGHT IN REACH. [email or web address]
--- NOTE | 2022-10-02 01:27 | NUR ---
PATIENT REQUEST PAIN MEDICATION, COVERING RN WAS INFORMED [email or web address]
[2022-10-02 04:00] VITALS: BP 150/84
[2022-10-02] MEDS: MORPHINE SULFATE 2 MG/ML SYR IVP PRN ×2 (04:30→11:44)
[2022-10-02 06:01] LABS: BASOPHILS % (AUTO) 0.7 % (0.0-2.0); EOSINOPHILS # (AUTO) 0.1 K/uL (0-0.4); EOSINOPHILS % (AUTO) 2.1 % (0.0-4.0); HEMATOCRIT 35.5 % (36-52); HEMOGLOBIN 12.3 g/dL (12.0-18.0); LYMPHOCYTES # (AUTO) 1.5 K/uL (2.0-11.5); LYMPHOCYTES % (AUTO) 24.5 % (20.5-51.1); MEAN CORPUSCULAR HEMOGLOBIN 29 pg (27-31); MEAN CORPUSCULAR HGB CONC 35 g/dL (33-37); MONOCYTES # (AUTO) 0.6 K/uL (0.8-1.0); MONOCYTES % (AUTO) 9.7 % (1.7-9.3); NEUTROPHILS # (AUTO) 3.8 K/uL (1.8-7.7); PLATELET COUNT (AUTO) 229 K/uL (140-450); RED BLOOD CELL COUNT(AUTO) 4.18 MIL/uL (4.20-6.10); RED CELL DISTRIBUTION WIDTH 17.2 % (11.6-13.7)
[2022-10-02 06:20] LABS: ANION GAP 11.3 (8-16); CARBON DIOXIDE 26.3 mmol/L (21-32); CREATININE 1.1 mg/dL (0.6-1.3); POTASSIUM 3.6 mmol/L (3.5-5.1)
[2022-10-02] MEDS: NACL 0.9% 1,000 ML IV SCH (06:50)
[2022-10-02] MEDS: BLOOD GLUCOSE MONITORING 1 DEV DEV FS SCH ×2 (06:51→11:38)
--- NOTE | 2022-10-02 06:58 | NUR ---
ENDORSED TO SANDEEP GRAYSON, PATIENT WAS STABLE DURING SHIFT REPORT. [email or web address]
[2022-10-02] MEDS ORDERED: diphenhydrAMINE 50 MG/ML VIAL ONE (07:08)
[2022-10-02] MEDS ORDERED: fentaNYL citrate 0.05 MG/ML VIAL ONE (07:08)
[2022-10-02] MEDS ORDERED: MIDAZOLAM 5 MG/5 ML VIAL ONE (07:09)
[2022-10-02 08:00] VITALS: BP 132/86
[2022-10-02] MEDS ORDERED: MIDAZOLAM 5 MG/5 ML VIAL IV ONE ×2 (08:00→12:00)
[2022-10-02] MEDS ORDERED: fentaNYL citrate 0.05 MG/ML VIAL IVP ONE ×2 (08:00→12:00)
--- NOTE | 2022-10-02 08:29 | NUR ---
PATIENT RETURN FROM OR FOR EGD WITH STABLE CONDITION (T-P-R: 98.4-84-20, BP: 132/86, O2 SAT 98% IN RA). PER OR NURSE THAT PATIENT HAD VERSED 5 MG & FENTANYL 100MG FOR EGD, AND DIAGNOSIS GASTRITIS & ELIZABETH'S ESOPHAGUS. CURRENT PATIENT IS ON REGULAR DIET (NO LONG NPO). WILL CONTINUE TO MONITOR
--- NOTE | 2022-10-02 08:52 | NUR ---
PATIENT HAS BEEN SCREENED AND CATEGORIZED MODERATE NUTRITION RISK. PATIENT WILL BE SEEN WITHIN 3-5 DAYS OF ADMISSION. 09/30/22-10/05/[address]
[2022-10-02] MEDS ORDERED: SUCRALFATE 1 GM TAB PO SCH (09:00)
[2022-10-02] MEDS: PANTOPRAZOLE 40 MG INJ VIAL IVP SCH (09:15)
[2022-10-02] MEDS: PROMETHAZINE 25 MG TAB PO SCH ×2 (09:16→13:29)
[2022-10-02] MEDS: LORazepam 0.5 MG TAB PO SCH (09:18)
[2022-10-02] MEDS: lisinopriL 20 MG TAB PO SCH (09:18)
[2022-10-02] MEDS ORDERED: SUCR1TAB56 PO (09:57)
[2022-10-02] MEDS ORDERED: LANS30EC68 PO (09:57)
[2022-10-02] MEDS: INSULIN LISPRO SLIDING SCALE 100 UNITS/ML VIAL SUBQ PRN (11:42)
[2022-10-02 13:34] VITALS: BP 132/86
--- NOTE | 2022-10-02 14:52 | NUR ---
DISCHARGE PATIENT IN STABLE CONDITION TO HOME PER PCP ORDER. DISCHARGE INSTRUCTION GIVEN, DISCHARGE CONSENT SIGNED, IV ACCESS & WRIST BAND REMOVED. PHOTOGRAPHIC PRESS SCREWMAKER INFORMED FOR TRANSPORTATION SERVICE.
[2022-10-02] MEDS ORDERED: LANSOPRAZOLE 30 MG CAPDR PO SCH (16:30)
== END 2022-10-02 15:02 | disposition home or self-care (01) | DRG 253 ==
LOC: MED 10:35 → MTU 14:52
PROVIDERS: ADMIT Family Medicine; ATTEND Family Medicine
PROC: 0DB78ZX Excision of Stomach, Pylorus, Via Natural or Artificial Opening Endoscopic, Diagnostic (ICD-10-PCS; principal; 2022-10-02 07:30)
DX: K92.2 Gastrointestinal hemorrhage, unspecified (principal); N17.0 Acute kidney failure with tubular necrosis; K31.84 Gastroparesis; K22.70 Barrett's esophagus without dysplasia; E11.43 Type 2 diabetes mellitus with diabetic autonomic (poly)neuropathy; E86.0 Dehydration; E87.6 Hypokalemia; I10 Essential (primary) hypertension; F19.90 Other psychoactive substance use, unspecified, uncomplicated; K21.9 Gastro-esophageal reflux disease without esophagitis; K44.9 Diaphragmatic hernia without obstruction or gangrene; E78.5 Hyperlipidemia, unspecified; Z20.822 Contact with and (suspected) exposure to COVID-19; B19.20 Unspecified viral hepatitis C without hepatic coma; Z88.8 Allergy status to other drugs, medicaments and biological substances
CPT/HCPCS: 36415; 71045; 80048; 80053; 80076; 81001; 82009; 82948; 83690; 83735; 83880; 84484; 85025; 87081; 88305; 88312; 88313; 88342; 96374; 96375; 96376; 99285; C9113; J0360; J0696; J1200; J1815; J2060; J2250; J2270; J2405; J2765; J3010; J7030; Q0169; Q9967

== ENCOUNTER 2023-05-08 12:00 | Emergency (ER) | payer MEDICAID ==
[~2023-05-08] VITALS: Ht 180.3 cm; Wt 93.0 kg
[~2023-05-08 12:00] MED LIST changes: -FAMO-92 PO; -GABA300C PO; -GLIP10TA3 PO; -GLIP10TE PO; +LANS30EC68 PO; -LISI-487 PO; +SUCR1TAB56 PO
[2023-05-08 12:44] VITALS: BP 183/99; PULSE 110; RESP 17; TEMP 97.7; O2SAT 100
[2023-05-08] MEDS ORDERED: ALUMINUM HYD/MAG/SIMETHICONE 30 ML UDC PO ONE (13:25)
[2023-05-08] MEDS ORDERED: DICYCLOMINE HCL LIQUID 10 MG/5 ML UDC PO ONE (13:30)
[2023-05-08 13:32] LABS: BASOPHILS % (AUTO) 0.2 % (0.0-2.0); HEMATOCRIT 41.4 % (36-52); HEMOGLOBIN 13.7 g/dL (12.0-18.0); LYMPHOCYTES # (AUTO) 0.7 K/uL (2.0-11.5); MEAN CORPUSCULAR HEMOGLOBIN 28 pg (27-31); MEAN CORPUSCULAR HGB CONC 33 g/dL (33-37); MONOCYTES # (AUTO) 0.4 K/uL (0.8-1.0); NEUTROPHILS # (AUTO) 11.3 K/uL (1.8-7.7); NEUTROPHILS % (AUTO) 90.8 % (42.2-75.2); PLATELET COUNT (AUTO) 269 K/uL (140-450); RED BLOOD CELL COUNT(AUTO) 4.81 MIL/uL (4.20-6.10); RED CELL DISTRIBUTION WIDTH 16.4 % (11.6-13.7); WHITE BLOOD COUNT (AUTO) 12.4 K/uL (4.8-10.8)
[2023-05-08] MEDS ORDERED: MORPHINE SULFATE 4 MG/ML SYR IVP ONE (13:40)
[2023-05-08] MEDS ORDERED: ONDANSETRON 4 MG/2 ML VIAL IVP ONE ×2 (13:40→16:25)
[2023-05-08] MEDS ORDERED: NACL 0.9% 1,000 ML IV ONE (13:40)
[2023-05-08 13:45] LABS: ANION GAP 19.2 (8-16); CALCIUM 9.4 mg/dL (8.5-10.1); CARBON DIOXIDE 22.7 mmol/L (21-32); CREATININE 1.7 mg/dL (0.6-1.3); POTASSIUM 3.9 mmol/L (3.5-5.1); TOTAL BILIRUBIN 0.3 mg/dL (0.0-1.0)
[2023-05-08] MEDS ORDERED: ALUMINUM HYD/MAG/SIMETHICONE 30 ML UDC ONE (14:44)
[2023-05-08] MEDS ORDERED: ONDANSETRON 4 MG/2 ML VIAL ONE (14:44)
[2023-05-08] MEDS ORDERED: MORPHINE SULFATE 4 MG/ML SYR ONE (14:45)
[2023-05-08] MEDS ORDERED: DICYCLOMINE HCL LIQUID 10 MG/5 ML UDC ONE (14:45)
[2023-05-08] MEDS ORDERED: CALC-870 PO (15:37)
[2023-05-08] MEDS ORDERED: ONDA4ODT2 PO (15:37)
[2023-05-08] MEDS ORDERED: BEN10 PO (15:37)
[2023-05-08 15:50] VITALS: O2SAT 100
[2023-05-08 16:04] LABS: APPEARANCE,URINE CLEAR (CLEAR); BILIRUBIN,URINE NEGATIVE (NEGATIVE); BLOOD, URINE 2+ (NEGATIVE); COLOR,URINE YELLOW (YELLOW); LEUKOCYTE ESTERASE ,URINE NEGATIVE (NEGATIVE); NITRITE, URINE NEGATIVE (NEGATIVE); PROTEIN,URINE 3+ (NEGATIVE); UGLUCOSE 3+ (NEGATIVE); UROBILINOGEN,URINE 0.2 EU/dL (0.2 - 1)
[2023-05-08 16:15] LABS: BACTERIA,URINE FEW /HPF (None Seen); SQUAMOUS EPITHELIAL CELL,UR 0-3 (FEW) /LPF (0-3 (FEW)); WBC,URINE 0-5 /HPF (0-5)
[2023-05-08 16:16] LABS: AMPHETAMINE, URINE NEGATIVE ng/ml (NEG <=1000); BARBITURATE, URINE NEGATIVE ng/ml (NEG <=200); BENZODIAZEPINE, URINE NEGATIVE ng/mL (NEG <=200); CANNABINOID, URINE POSITIVE ng/mL (NEG <=50); COCAINE, URINE NEGATIVE ng/mL (NEG <=300); OPIATE, URINE POSITIVE ng/mL (NEG <=2000); PHENCYCLIDINE SCREEN,URINE NEGATIVE ng/mL (NEG <=25)
[2023-05-08] MEDS ORDERED: MORPHINE SULFATE 2 MG/ML SYR IVP STA (16:51)
[2023-05-08 17:36] VITALS: BP 139/89; PULSE 88; RESP 17; TEMP 98; O2SAT 100
[2023-05-09] MEDS ORDERED: METO-485 PO (11:52)
[2023-05-09] MEDS ORDERED: ACET-2619 PO (11:52)
== END 2023-05-08 17:36 | disposition home or self-care (01) ==
LOC: MED 12:00
DX: K29.70 Gastritis, unspecified, without bleeding (principal); N17.9 Acute kidney failure, unspecified; R11.2 Nausea with vomiting, unspecified; E11.9 Type 2 diabetes mellitus without complications; I10 Essential (primary) hypertension; Z79.899 Other long term (current) drug therapy; Z79.84 Long term (current) use of oral hypoglycemic drugs; Z88.8 Allergy status to other drugs, medicaments and biological substances
CPT/HCPCS: 36415; 80053; 80305; 81001; 82009; 83690; 85025; 96361; 96374; 96375; 96376; 99284; J2270; J2405

== ENCOUNTER 2023-05-09 08:34 | Emergency (ER) | payer MEDICAID ==
[~2023-05-09] VITALS: Ht 182.9 cm; Wt 93.9 kg
[~2023-05-09 08:34] MED LIST changes: +BEN10 PO; +CALC-870 PO; +ONDA4ODT2 PO
[2023-05-09 08:54] VITALS: BP 161/137; PULSE 127; RESP 20; TEMP 99.5; O2SAT 100
[2023-05-09] MEDS ORDERED: METOCLOPRAMIDE 10 MG/2 ML INJ VIAL IVP ONE (09:20)
[2023-05-09] MEDS ORDERED: NACL 0.9% 1,000 ML IV ONE (09:20)
[2023-05-09] MEDS ORDERED: KETOROLAC 30 MG/ML VIAL IVP ONE (09:20)
[2023-05-09 09:29] LABS: BASOPHILS % (AUTO) 0.3 % (0.0-2.0); EOSINOPHILS % (AUTO) 0.1 % (0.0-4.0); HEMATOCRIT 40.4 % (36-52); HEMOGLOBIN 13.7 g/dL (12.0-18.0); LYMPHOCYTES # (AUTO) 0.9 K/uL (2.0-11.5); LYMPHOCYTES % (AUTO) 7.6 % (20.5-51.1); MEAN CORPUSCULAR HEMOGLOBIN 29 pg (27-31); MEAN CORPUSCULAR HGB CONC 34 g/dL (33-37); MEAN CORPUSCULAR VOLUME 84.9 fL (80-94); MONOCYTES # (AUTO) 0.7 K/uL (0.8-1.0); MONOCYTES % (AUTO) 6.3 % (1.7-9.3); NEUTROPHILS # (AUTO) 9.9 K/uL (1.8-7.7); NEUTROPHILS % (AUTO) 85.7 % (42.2-75.2); PLATELET COUNT (AUTO) 295 K/uL (140-450); RED BLOOD CELL COUNT(AUTO) 4.76 MIL/uL (4.20-6.10); RED CELL DISTRIBUTION WIDTH 16.9 % (11.6-13.7); WHITE BLOOD COUNT (AUTO) 11.6 K/uL (4.8-10.8)
[2023-05-09 09:47] LABS: ALBUMIN 3.9 g/dL (3.4-5.0); ANION GAP 17.8 (8-16); CREATININE 1.7 mg/dL (0.6-1.3); POTASSIUM 3.8 mmol/L (3.5-5.1); TOTAL BILIRUBIN 0.5 mg/dL (0.0-1.0)
[2023-05-09] MEDS ORDERED: METO-485 PO (11:52)
[2023-05-09] MEDS ORDERED: ACET-2619 PO (11:52)
[2023-05-09 12:17] VITALS: BP 130/75; PULSE 99; RESP 20; TEMP 98.5; O2SAT 100
== END 2023-05-09 12:17 | disposition home or self-care (01) ==
LOC: MED 08:34
DX: E11.43 Type 2 diabetes mellitus with diabetic autonomic (poly)neuropathy (principal); K31.84 Gastroparesis; K29.70 Gastritis, unspecified, without bleeding; R19.7 Diarrhea, unspecified; N17.9 Acute kidney failure, unspecified; R11.10 Vomiting, unspecified; F12.90 Cannabis use, unspecified, uncomplicated; I10 Essential (primary) hypertension; Z79.4 Long term (current) use of insulin; Z79.899 Other long term (current) drug therapy
CPT/HCPCS: 36415; 74177; 80053; 83690; 85025; 96361; 96374; 96375; 99285; J1885; J2765; Q9967; J7030

== ENCOUNTER 2023-05-26 12:35 | Emergency (ER) | payer MEDICAID ==
[~2023-05-26] VITALS: Ht 182.9 cm; Wt 88.5 kg
[~2023-05-26 12:35] MED LIST changes: +ACET-2619 PO; +METO-485 PO
[2023-05-26 13:08] VITALS: BP 178/112; PULSE 111; RESP 20; TEMP 98.2; O2SAT 100
[2023-05-26 14:16] LABS: BASOPHILS % (AUTO) 0.3 % (0.0-2.0); EOSINOPHILS % (AUTO) 0.7 % (0.0-4.0); HEMATOCRIT 40.2 % (36-52); HEMOGLOBIN 13.6 g/dL (12.0-18.0); LYMPHOCYTES % (AUTO) 15.1 % (20.5-51.1); MEAN CORPUSCULAR HEMOGLOBIN 29 pg (27-31); MEAN CORPUSCULAR HGB CONC 34 g/dL (33-37); MEAN CORPUSCULAR VOLUME 85.1 fL (80-94); MONOCYTES # (AUTO) 0.4 K/uL (0.8-1.0); MONOCYTES % (AUTO) 6.6 % (1.7-9.3); NEUTROPHILS % (AUTO) 77.3 % (42.2-75.2); PLATELET COUNT (AUTO) 267 K/uL (140-450); RED BLOOD CELL COUNT(AUTO) 4.72 MIL/uL (4.20-6.10); RED CELL DISTRIBUTION WIDTH 16.3 % (11.6-13.7); WHITE BLOOD COUNT (AUTO) 6.5 K/uL (4.8-10.8)
[2023-05-26 14:29] LABS: ALBUMIN 3.8 g/dL (3.4-5.0); ANION GAP 15.6 (8-16); CARBON DIOXIDE 24.6 mmol/L (21-32); CREATININE 1.7 mg/dL (0.6-1.3); POTASSIUM 4.2 mmol/L (3.5-5.1); TOTAL BILIRUBIN 0.5 mg/dL (0.0-1.0); TOTAL PROTEIN, SERUM 7.9 g/dL (6.4-8.2)
[2023-05-26] MEDS ORDERED: KETOROLAC 15 MG/ML VIAL IVP ONE (14:50)
[2023-05-26] MEDS ORDERED: NACL 0.9% 1,000 ML IV ONE (14:50)
[2023-05-26] MEDS ORDERED: HALOPERIDOL IM 5 MG/ML VIAL IM ONE (14:50)
[2023-05-26 16:38] LABS: APPEARANCE,URINE CLEAR (CLEAR); BILIRUBIN,URINE NEGATIVE (NEGATIVE); BLOOD, URINE 1+ (NEGATIVE); COLOR,URINE YELLOW (YELLOW); LEUKOCYTE ESTERASE ,URINE NEGATIVE (NEGATIVE); NITRITE, URINE NEGATIVE (NEGATIVE); PROTEIN,URINE 3+ (NEGATIVE); UGLUCOSE 2+ (NEGATIVE); UROBILINOGEN,URINE 0.2 EU/dL (0.2 - 1)
[2023-05-26 16:56] LABS: BACTERIA,URINE FEW /HPF (None Seen); SQUAMOUS EPITHELIAL CELL,UR 0-3 (FEW) /LPF (0-3 (FEW)); WBC,URINE 0-5 /HPF (0-5)
[2023-05-26] MEDS ORDERED: ALUM355S59 PO (17:34)
[2023-05-26] MEDS ORDERED: ALUMINUM HYD/MAG/SIMETHICONE 30 ML UDC PO ONE (17:35)
[2023-05-26 17:54] VITALS: BP 155/79; PULSE 97; RESP 20; TEMP 98.2; O2SAT 100
== END 2023-05-26 17:55 | disposition home or self-care (01) ==
LOC: MED 12:35
DX: R10.13 Epigastric pain (principal); G89.29 Other chronic pain; E11.43 Type 2 diabetes mellitus with diabetic autonomic (poly)neuropathy; K31.84 Gastroparesis; I10 Essential (primary) hypertension; F12.90 Cannabis use, unspecified, uncomplicated; Z90.49 Acquired absence of other specified parts of digestive tract; Z79.899 Other long term (current) drug therapy; Z79.84 Long term (current) use of oral hypoglycemic drugs; Z88.8 Allergy status to other drugs, medicaments and biological substances
CPT/HCPCS: 36415; 80053; 81001; 83690; 85025; 96361; 96372; 96374; 99284; J1630; J1885; J7030

== ENCOUNTER 2023-05-28 07:34 | Emergency (ER) | payer MEDICAID ==
[~2023-05-28] VITALS: Ht 182.9 cm; Wt 86.2 kg
[~2023-05-28 07:34] MED LIST changes: +ALUM355S59 PO
[2023-05-28 07:41] VITALS: BP 148/76; PULSE 104; RESP 18; TEMP 98.4
[2023-05-28 08:13] VITALS: O2SAT 97
[2023-05-28] MEDS ORDERED: MORPHINE SULFATE 4 MG/ML SYR IM ONE ×2 (08:35→09:35)
[2023-05-28] MEDS ORDERED: ONDANSETRON 4 MG ODT PO ONE (08:35)
[2023-05-28] MEDS ORDERED: PROM25TA27 PO (09:49)
[2023-05-28 10:25] VITALS: O2SAT 97
== END 2023-05-28 10:24 | disposition home or self-care (01) ==
LOC: MED 07:34
DX: R10.13 Epigastric pain (principal); R11.2 Nausea with vomiting, unspecified; R19.7 Diarrhea, unspecified; E11.9 Type 2 diabetes mellitus without complications; I10 Essential (primary) hypertension; F12.90 Cannabis use, unspecified, uncomplicated; Z79.84 Long term (current) use of oral hypoglycemic drugs; Z79.899 Other long term (current) drug therapy; Z88.8 Allergy status to other drugs, medicaments and biological substances
CPT/HCPCS: 96372; 99284; J2270; Q0162

== ENCOUNTER 2023-05-30 15:16 | Emergency (ER) | payer MEDICAID ==
[~2023-05-30] VITALS: Ht 182.9 cm; Wt 87.8 kg
[~2023-05-30 15:16] MED LIST changes: +PROM25TA27 PO
[2023-05-30 15:37] VITALS: BP 155/112; PULSE 115; RESP 20; TEMP 98.9; O2SAT 98
[2023-05-30] MEDS ORDERED: METOCLOPRAMIDE 10 MG/2 ML INJ VIAL IVP ONE (16:55)
[2023-05-30] MEDS ORDERED: NACL 0.9% 1,000 ML IV ONE (17:15)
[2023-05-30 17:36] LABS: BASOPHILS % (AUTO) 0.3 % (0.0-2.0); EOSINOPHILS % (AUTO) 0.5 % (0.0-4.0); HEMATOCRIT 40.5 % (36-52); HEMOGLOBIN 13.9 g/dL (12.0-18.0); LYMPHOCYTES # (AUTO) 1.3 K/uL (2.0-11.5); LYMPHOCYTES % (AUTO) 14.2 % (20.5-51.1); MEAN CORPUSCULAR HEMOGLOBIN 29 pg (27-31); MEAN CORPUSCULAR HGB CONC 34 g/dL (33-37); MONOCYTES # (AUTO) 0.6 K/uL (0.8-1.0); MONOCYTES % (AUTO) 6.3 % (1.7-9.3); NEUTROPHILS # (AUTO) 7.2 K/uL (1.8-7.7); NEUTROPHILS % (AUTO) 78.7 % (42.2-75.2); PLATELET COUNT (AUTO) 272 K/uL (140-450); RED BLOOD CELL COUNT(AUTO) 4.76 MIL/uL (4.20-6.10); WHITE BLOOD COUNT (AUTO) 9.1 K/uL (4.8-10.8)
[2023-05-30 17:53] LABS: ALBUMIN 3.9 g/dL (3.4-5.0); ANION GAP 15.5 (8-16); CALCIUM 9.3 mg/dL (8.5-10.1); CARBON DIOXIDE 27.4 mmol/L (21-32); CREATININE 1.5 mg/dL (0.6-1.3); POTASSIUM 3.9 mmol/L (3.5-5.1); TOTAL BILIRUBIN 0.5 mg/dL (0.0-1.0); TOTAL PROTEIN, SERUM 8.2 g/dL (6.4-8.2)
[2023-05-30 18:53] VITALS: TEMP 98.5
[2023-05-30] MEDS ORDERED: KETOROLAC 30 MG/ML VIAL IM ONE (19:10)
[2023-05-30] MEDS ORDERED: KETOROLAC 30 MG/ML VIAL IVP ONE (20:00)
[2023-05-30] MEDS ORDERED: ALUMINUM HYD/MAG/SIMETHICONE 30 ML UDC PO ONE (22:00)
[2023-05-30] MEDS ORDERED: FAMOTIDINE 20 MG TAB PO ONE (22:00)
[2023-05-30 22:10] VITALS: BP 165/83; PULSE 95; RESP 18; O2SAT 98
== END 2023-05-30 22:10 | disposition home or self-care (01) ==
LOC: MED 15:16
DX: R10.13 Epigastric pain (principal); E11.43 Type 2 diabetes mellitus with diabetic autonomic (poly)neuropathy; K31.84 Gastroparesis; I10 Essential (primary) hypertension; Z79.4 Long term (current) use of insulin; Z79.899 Other long term (current) drug therapy
CPT/HCPCS: 36415; 74177; 80053; 85025; 96361; 96374; 96375; 99285; J1885; J2765; J7030; Q9967

== ENCOUNTER 2023-06-24 07:53 | Emergency (ER) | payer MEDICAID ==
[~2023-06-24] VITALS: Ht 182.9 cm; Wt 89.8 kg
[2023-06-24 07:59] VITALS: BP 185/98; PULSE 112; RESP 18; TEMP 97; O2SAT 99
[2023-06-24] MEDS ORDERED: NACL 0.9% 1,000 ML IV ONE (08:20)
[2023-06-24] MEDS ORDERED: KETOROLAC 30 MG/ML VIAL IVP ONE (08:20)
[2023-06-24] MEDS ORDERED: diphenhydrAMINE 50 MG/ML VIAL IVP ONE (08:20)
[2023-06-24] MEDS ORDERED: PROCHLORPERAZINE 10 MG/2 ML VIAL IVP ONE (08:20)
[2023-06-24] MEDS ORDERED: PANTOPRAZOLE 40 MG INJ VIAL IVP ONE (08:20)
[2023-06-24 08:53] LABS: BASOPHILS # (AUTO) 0.1 K/uL (0.00-0.22); BASOPHILS % (AUTO) 0.7 % (0.0-2.0); EOSINOPHILS # (AUTO) 0.2 K/uL (0-0.4); EOSINOPHILS % (AUTO) 1.8 % (0.0-4.0); HEMATOCRIT 41.6 % (36-52); HEMOGLOBIN 14.1 g/dL (12.0-18.0); LYMPHOCYTES # (AUTO) 1.6 K/uL (2.0-11.5); LYMPHOCYTES % (AUTO) 18.9 % (20.5-51.1); MEAN CORPUSCULAR HEMOGLOBIN 29 pg (27-31); MEAN CORPUSCULAR HGB CONC 34 g/dL (33-37); MEAN CORPUSCULAR VOLUME 85.5 fL (80-94); MONOCYTES # (AUTO) 0.6 K/uL (0.8-1.0); MONOCYTES % (AUTO) 6.6 % (1.7-9.3); NEUTROPHILS # (AUTO) 6.1 K/uL (1.8-7.7); PLATELET COUNT (AUTO) 275 K/uL (140-450); RED BLOOD CELL COUNT(AUTO) 4.87 MIL/uL (4.20-6.10); RED CELL DISTRIBUTION WIDTH 16.3 % (11.6-13.7); WHITE BLOOD COUNT (AUTO) 8.5 K/uL (4.8-10.8)
[2023-06-24] MEDS ORDERED: ONDANSETRON 4 MG/2 ML VIAL IVP ONE ×2 (09:25→13:50)
[2023-06-24 09:40] LABS: ALANINE AMINOTRANSFERASE 31 U/L (12-78); ALBUMIN 4.1 g/dL (3.4-5.0); ALKALINE PHOSPHATASE 106 U/L (50-136); ANION GAP 20.3 (8-16); ASPARTATE AMINOTRANSFERASE 20 U/L (15-37); CALCIUM 10.1 mg/dL (8.5-10.1); CARBON DIOXIDE 20.4 mmol/L (21-32); CHLORIDE 102 mmol/L (98-107); CREATININE 1.8 mg/dL (0.6-1.3); GFR ARICAN-AMERICAN 52 mL/min (>90); GFR NON ARICAN-AMERICAN 43 mL/min (>90); GLUCOSE 207 mg/dL (74-106); POTASSIUM 3.7 mmol/L (3.5-5.1); SODIUM SERUM 139 mmol/L (136-145); TOTAL BILIRUBIN 0.6 mg/dL (0.0-1.0); TOTAL PROTEIN, SERUM 8.6 g/dL (6.4-8.2); UREA NITROGEN, BLOOD 27 mg/dL (7-18)
[2023-06-24] MEDS ORDERED: MORPHINE SULFATE 4 MG/ML SYR IVP ONE (09:55)
[2023-06-24 10:07] LABS: LIPASE 78 U/L (16-77)
[2023-06-24] MEDS ORDERED: ALUMINUM HYD/MAG/SIMETHICONE 30 ML UDC PO ONE (10:25)
[2023-06-24 10:59] LABS: APPEARANCE,URINE CLEAR (CLEAR); BILIRUBIN,URINE NEGATIVE (NEGATIVE); BLOOD, URINE TRACE-I (NEGATIVE); COLOR,URINE YELLOW (YELLOW); LEUKOCYTE ESTERASE ,URINE NEGATIVE (NEGATIVE); NITRITE, URINE NEGATIVE (NEGATIVE); PH,URINE 6.5 (5.0-9.0); PROTEIN,URINE 2+ (NEGATIVE); UGLUCOSE 1+ (NEGATIVE); UROBILINOGEN,URINE 0.2 EU/dL (0.2 - 1)
[2023-06-24 11:11] LABS: BACTERIA,URINE 0-2 /HPF (None Seen); WBC,URINE 0-5 /HPF (0-5)
[2023-06-24 11:12] LABS: RBC,URINE 0-5 /HPF (0-5); SQUAMOUS EPITHELIAL CELL,UR 0-3 (FEW) /LPF (0-3 (FEW))
[2023-06-24 13:40] VITALS: BP 148/100; PULSE 108; RESP 13; TEMP 97.9; O2SAT 99
[2023-06-24] MEDS ORDERED: ONDA-188 PO (13:43)
[2023-06-24] MEDS ORDERED: ACET-8905 PO (13:43)
[2023-06-24] MEDS ORDERED: HYDROcodone/APAP 5/325 MG 1 TAB TAB PO ONE (13:45)
[2023-06-24] MEDS ORDERED: METOCLOPRAMIDE 10 MG/2 ML INJ VIAL IVP ONE (14:30)
== END 2023-06-24 16:04 | disposition home or self-care (01) ==
LOC: MED 07:53
DX: R11.2 Nausea with vomiting, unspecified (principal); R19.7 Diarrhea, unspecified; F12.10 Cannabis abuse, uncomplicated; E11.22 Type 2 diabetes mellitus with diabetic chronic kidney disease; I12.9 Hypertensive chronic kidney disease with stage 1 through stage 4 chronic kidney disease, or unspecified chronic kidney disease; N18.9 Chronic kidney disease, unspecified; E11.43 Type 2 diabetes mellitus with diabetic autonomic (poly)neuropathy; K31.84 Gastroparesis; Z79.899 Other long term (current) drug therapy; Z88.8 Allergy status to other drugs, medicaments and biological substances
CPT/HCPCS: 36415; 80053; 81001; 83690; 84484; 85025; 93005; 96361; 96374; 96375; 96376; 99285; C9113; J0780; J1200; J1885; J2270; J2405; J2765; J7030

== ENCOUNTER 2023-06-27 19:57 | Inpatient (IN) | payer MEDICAID ==
[~2023-06-27] VITALS: Ht 182.9 cm; Wt 90.7 kg
[~2023-06-27 19:57] MED LIST changes: +ACET-8905 PO; +ONDA-188 PO
[2023-06-27 20:38] VITALS: BP 151/118; PULSE 103; RESP 20; TEMP 98.4; O2SAT 98
[2023-06-27 21:53] LABS: BASOPHILS % (AUTO) 0.5 % (0.0-2.0); EOSINOPHILS # (AUTO) 0.1 K/uL (0-0.4); EOSINOPHILS % (AUTO) 0.7 % (0.0-4.0); HEMATOCRIT 37.4 % (36-52); HEMOGLOBIN 12.8 g/dL (12.0-18.0); LYMPHOCYTES # (AUTO) 1.3 K/uL (2.0-11.5); LYMPHOCYTES % (AUTO) 18.1 % (20.5-51.1); MEAN CORPUSCULAR HEMOGLOBIN 29 pg (27-31); MEAN CORPUSCULAR HGB CONC 34 g/dL (33-37); MEAN CORPUSCULAR VOLUME 84.3 fL (80-94); MONOCYTES # (AUTO) 0.6 K/uL (0.8-1.0); MONOCYTES % (AUTO) 8.8 % (1.7-9.3); NEUTROPHILS # (AUTO) 5.2 K/uL (1.8-7.7); NEUTROPHILS % (AUTO) 71.9 % (42.2-75.2); PLATELET COUNT (AUTO) 251 K/uL (140-450); RED BLOOD CELL COUNT(AUTO) 4.43 MIL/uL (4.20-6.10); RED CELL DISTRIBUTION WIDTH 15.7 % (11.6-13.7); WHITE BLOOD COUNT (AUTO) 7.2 K/uL (4.8-10.8)
[2023-06-27 22:05] LABS: INR 0.93 (0.8-1.2); PARTIAL THROMBOPLASTIN TIME 29.3 secs (22-35.6); PROTHROMBIN TIME 9.8 secs (10.8-13.4)
[2023-06-27 22:14] LABS: LACTIC ACID 1.7 mmol/L (0.4-2.0)
[2023-06-27 22:20] LABS: ALANINE AMINOTRANSFERASE 30 U/L (12-78); ALBUMIN 3.9 g/dL (3.4-5.0); ALKALINE PHOSPHATASE 100 U/L (50-136); ANION GAP 14.7 (8-16); ASPARTATE AMINOTRANSFERASE 13 U/L (15-37); CALCIUM 9.6 mg/dL (8.5-10.1); CARBON DIOXIDE 24.9 mmol/L (21-32); CHLORIDE 101 mmol/L (98-107); CREATINE KINASE, TOTAL 48 U/L (39-308); CREATININE 1.2 mg/dL (0.6-1.3); GFR ARICAN-AMERICAN 82 mL/min (>90); GFR NON ARICAN-AMERICAN 68 mL/min (>90); GLUCOSE 163 mg/dL (74-106); POTASSIUM 3.6 mmol/L (3.5-5.1); SODIUM SERUM 137 mmol/L (136-145); TOTAL BILIRUBIN 0.8 mg/dL (0.0-1.0); TOTAL PROTEIN, SERUM 7.9 g/dL (6.4-8.2); UREA NITROGEN, BLOOD 14 mg/dL (7-18)
[2023-06-27 22:56] LABS: APPEARANCE,URINE CLEAR (CLEAR); BILIRUBIN,URINE NEGATIVE (NEGATIVE); BLOOD, URINE 1+ (NEGATIVE); COLOR,URINE YELLOW (YELLOW); LEUKOCYTE ESTERASE ,URINE NEGATIVE (NEGATIVE); NITRITE, URINE NEGATIVE (NEGATIVE); PH,URINE 6.5 (5.0-9.0); PROTEIN,URINE 3+ (NEGATIVE); UGLUCOSE 1+ (NEGATIVE); UROBILINOGEN,URINE 0.2 EU/dL (0.2 - 1)
[2023-06-27 23:05] LABS: BACTERIA,URINE 10-30 (MOD) /HPF (None Seen); MUCUS,URINE 1+ /LPF (None Seen); RBC,URINE 0-5 /HPF (0-5); SQUAMOUS EPITHELIAL CELL,UR 0-3 (FEW) /LPF (0-3 (FEW)); WBC,URINE 0-5 /HPF (0-5)
[2023-06-28] VITALS (7 sets, daily range): BP systolic 183; BP diastolic 106; PULSE 96–104; RESP 18; TEMP 97.1; O2SAT 97–99
[2023-06-28] MEDS ORDERED: ACETAMINOPHEN EXTRA STRENGTH 500 MG TAB PO ONE (00:10)
[2023-06-28] MEDS ORDERED: PANTOPRAZOLE 40 MG INJ VIAL IVP ONE (00:10)
[2023-06-28] MEDS ORDERED: METOCLOPRAMIDE 10 MG/2 ML INJ VIAL IVP ONE ×2 (00:10→05:25)
[2023-06-28] MEDS ORDERED: KETOROLAC 30 MG/ML VIAL IVP ONE ×2 (00:10→05:25)
[2023-06-28] MEDS ORDERED: CEPH-588 PO (05:24)
[2023-06-28] MEDS ORDERED: METO-485 PO (05:25)
[2023-06-28] MEDS ORDERED: cephALEXin 500 MG CAP PO ONE (05:25)
[2023-06-28] MEDS ORDERED: FAMOTIDINE 20 MG/2 ML VIAL IVP ONE (05:50)
[2023-06-28] MEDS ORDERED: diphenhydrAMINE 50 MG/ML VIAL IVP ONE (06:20)
[2023-06-28] MEDS ORDERED: HALOPERIDOL IM 5 MG/ML VIAL IVP ONE (06:20)
[2023-06-28] MEDS ORDERED: NACL 0.9% 1,000 ML IV ONE (06:35)
[2023-06-28] MEDS ORDERED: DEXTROSE 50% 50 ML SYR IVP PRN (06:35)
[2023-06-28] MEDS ORDERED: ALBUTEROL 0.083% 2.5 MG/3 ML NEBU INH PRN (06:35)
[2023-06-28] MEDS: BLOOD GLUCOSE MONITORING 1 DEV DEV FS SCH ×4 (08:00→21:14)
[2023-06-28] MEDS ORDERED: amLODIPine 5 MG TAB PO SCH (09:00)
[2023-06-28] MEDS: PANTOPRAZOLE 40 MG INJ VIAL IVP SCH ×2 (09:00→21:00)
[2023-06-28] MEDS: HYDROcodone/APAP 5/325 MG 1 TAB TAB PO PRN ×2 (10:08→17:06)
[2023-06-28] MEDS: NACL 0.9% 1,000 ML IV SCH (13:28)
[2023-06-28] MEDS: SUCRALFATE 1 GM TAB PO SCH ×3 (13:29→21:01)
[2023-06-28] MEDS: METOCLOPRAMIDE 10 MG/2 ML INJ VIAL IVP SCH ×2 (13:30→21:00)
[2023-06-28] MEDS: MORPHINE SULFATE 2 MG/ML SYR IVP PRN ×2 (13:36→19:46)
[2023-06-28] MEDS: ERYTHROMYCIN 250 MG in NACL 0.9% 100 ML IV SCH ×2 (14:57→21:05)
[2023-06-28] MEDS ORDERED: OMEP20EC11 PO (17:20)
[2023-06-28] MEDS ORDERED: AMLO5TAB PO (17:20)
[2023-06-28] MEDS ORDERED: hydrALAZINE 20 MG/ML VIAL IVP SCH (17:54)
[2023-06-28] MEDS: ONDANSETRON 4 MG/2 ML VIAL IVP PRN (19:45)
[2023-06-28] MEDS: ATORVASTATIN 20 MG TAB PO SCH (21:01)
[2023-06-28] MEDS: lisinopriL 20 MG TAB PO SCH (21:01)
[2023-06-28] MEDS: hydrALAZINE 25 MG TAB PO PRN (21:13)
[2023-06-28] MEDS: INSULIN LISPRO SLIDING SCALE 100 UNITS/ML VIAL SUBQ PRN (21:13)
[2023-06-29] MEDS: MORPHINE SULFATE 2 MG/ML SYR IVP PRN ×6 (00:52→23:39)
[2023-06-29] MEDS: NACL 0.9% 1,000 ML IV SCH ×3 (01:00→20:13)
[2023-06-29 04:00] VITALS: BP 167/94; PULSE 102; RESP 18; TEMP 98.5; O2SAT 98
[2023-06-29] MEDS: ONDANSETRON 4 MG/2 ML VIAL IVP PRN (04:12)
[2023-06-29] MEDS: METOCLOPRAMIDE 10 MG/2 ML INJ VIAL IVP SCH ×3 (04:55→20:11)
[2023-06-29] MEDS: ERYTHROMYCIN 250 MG in NACL 0.9% 100 ML IV SCH ×3 (04:56→20:12)
[2023-06-29] MEDS: hydrALAZINE 25 MG TAB PO PRN (04:59)
[2023-06-29 06:30] LABS: BASOPHILS % (AUTO) 0.8 % (0.0-2.0); EOSINOPHILS # (AUTO) 0.1 K/uL (0-0.4); EOSINOPHILS % (AUTO) 2.1 % (0.0-4.0); HEMATOCRIT 35.7 % (36-52); HEMOGLOBIN 12.3 g/dL (12.0-18.0); LYMPHOCYTES % (AUTO) 21.2 % (20.5-51.1); MEAN CORPUSCULAR HEMOGLOBIN 29 pg (27-31); MEAN CORPUSCULAR HGB CONC 34 g/dL (33-37); MEAN CORPUSCULAR VOLUME 84.9 fL (80-94); MONOCYTES # (AUTO) 0.6 K/uL (0.8-1.0); MONOCYTES % (AUTO) 11.4 % (1.7-9.3); NEUTROPHILS # (AUTO) 3.1 K/uL (1.8-7.7); NEUTROPHILS % (AUTO) 64.5 % (42.2-75.2); PLATELET COUNT (AUTO) 232 K/uL (140-450); RED BLOOD CELL COUNT(AUTO) 4.21 MIL/uL (4.20-6.10); RED CELL DISTRIBUTION WIDTH 15.5 % (11.6-13.7); WHITE BLOOD COUNT (AUTO) 4.8 K/uL (4.8-10.8)
[2023-06-29 06:38] LABS: ANION GAP 16.6 (8-16); CALCIUM 8.6 mg/dL (8.5-10.1); CARBON DIOXIDE 21.8 mmol/L (21-32); CREATININE 1.2 mg/dL (0.6-1.3); POTASSIUM 3.4 mmol/L (3.5-5.1)
[2023-06-29] MEDS: BLOOD GLUCOSE MONITORING 1 DEV DEV FS SCH ×4 (07:30→20:12)
[2023-06-29] MEDS ORDERED: POTASSIUM CHLORIDE 10 MEQ TABER PO SCH (07:55)
[2023-06-29 08:00] VITALS: PULSE 115; RESP 18; O2SAT 99
[2023-06-29 08:50] VITALS: O2SAT 100
[2023-06-29] MEDS ORDERED: lisinopriL 20 MG TAB PO SCH (09:00)
[2023-06-29] MEDS: SUCRALFATE 1 GM TAB PO SCH ×4 (09:07→20:10)
[2023-06-29] MEDS: lisinopriL 20 MG TAB PO SCH ×2 (09:14→20:10)
[2023-06-29] MEDS: carvediloL 6.25 MG TAB PO SCH (09:14)
[2023-06-29] MEDS: INSULIN LISPRO SLIDING SCALE 100 UNITS/ML VIAL SUBQ PRN (09:27)
[2023-06-29] MEDS: PANTOPRAZOLE 40 MG INJ VIAL IVP SCH ×2 (09:28→20:11)
[2023-06-29 16:00] VITALS: BP 155/89; PULSE 78; RESP 18; TEMP 97.6; O2SAT 100
[2023-06-29 19:37] VITALS: PULSE 89; RESP 18; O2SAT 99
[2023-06-29 20:00] VITALS: BP 129/78; PULSE 89; RESP 17; TEMP 98.8; O2SAT 97
[2023-06-29] MEDS: ATORVASTATIN 20 MG TAB PO SCH (20:11)
[2023-06-30 03:55] LABS: BASOPHILS % (AUTO) 0.4 % (0.0-2.0); EOSINOPHILS # (AUTO) 0.2 K/uL (0-0.4); EOSINOPHILS % (AUTO) 2.2 % (0.0-4.0); HEMATOCRIT 35.7 % (36-52); HEMOGLOBIN 12.2 g/dL (12.0-18.0); LYMPHOCYTES # (AUTO) 1.6 K/uL (2.0-11.5); LYMPHOCYTES % (AUTO) 22.2 % (20.5-51.1); MEAN CORPUSCULAR HEMOGLOBIN 29 pg (27-31); MEAN CORPUSCULAR HGB CONC 34 g/dL (33-37); MEAN CORPUSCULAR VOLUME 84.6 fL (80-94); MONOCYTES # (AUTO) 0.6 K/uL (0.8-1.0); MONOCYTES % (AUTO) 8.6 % (1.7-9.3); NEUTROPHILS # (AUTO) 4.7 K/uL (1.8-7.7); NEUTROPHILS % (AUTO) 66.6 % (42.2-75.2); PLATELET COUNT (AUTO) 248 K/uL (140-450); RED BLOOD CELL COUNT(AUTO) 4.22 MIL/uL (4.20-6.10); RED CELL DISTRIBUTION WIDTH 15.5 % (11.6-13.7); WHITE BLOOD COUNT (AUTO) 7.1 K/uL (4.8-10.8)
[2023-06-30] MEDS: METOCLOPRAMIDE 10 MG/2 ML INJ VIAL IVP SCH ×2 (04:06→13:29)
[2023-06-30] MEDS: MORPHINE SULFATE 2 MG/ML SYR IVP PRN ×3 (04:06→13:30)
[2023-06-30] MEDS: ERYTHROMYCIN 250 MG in NACL 0.9% 100 ML IV SCH ×2 (04:12→13:29)
[2023-06-30 05:37] LABS: ANION GAP 15.4 (8-16); CALCIUM 8.8 mg/dL (8.5-10.1); CARBON DIOXIDE 23.4 mmol/L (21-32); CREATININE 1.3 mg/dL (0.6-1.3); POTASSIUM 3.8 mmol/L (3.5-5.1)
[2023-06-30] MEDS: BLOOD GLUCOSE MONITORING 1 DEV DEV FS SCH ×2 (07:30→12:00)
[2023-06-30] MEDS ORDERED: diphenhydrAMINE 50 MG/ML VIAL ONE (07:31)
[2023-06-30] MEDS ORDERED: fentaNYL citrate 0.05 MG/ML VIAL ONE (07:31)
[2023-06-30] MEDS ORDERED: MIDAZOLAM 2 MG/2 ML VIAL ONE (07:31)
[2023-06-30 08:00] VITALS: BP 124/87; PULSE 85; RESP 18; TEMP 98; O2SAT 98
[2023-06-30] MEDS: carvediloL 6.25 MG TAB PO SCH (08:28)
[2023-06-30] MEDS: SUCRALFATE 1 GM TAB PO SCH ×2 (08:28→13:30)
[2023-06-30] MEDS: PANTOPRAZOLE 40 MG INJ VIAL IVP SCH (08:28)
[2023-06-30] MEDS: lisinopriL 20 MG TAB PO SCH (08:29)
[2023-06-30] MEDS: INSULIN LISPRO SLIDING SCALE 100 UNITS/ML VIAL SUBQ PRN ×2 (08:43→13:27)
[2023-06-30] MEDS ORDERED: fentaNYL citrate 0.05 MG/ML VIAL IVP ONE (09:45)
[2023-06-30] MEDS ORDERED: MIDAZOLAM 2 MG/2 ML VIAL IVP ONE (09:45)
[2023-06-30] MEDS: NACL 0.9% 1,000 ML IV SCH (13:30)
[2023-06-30] MEDS ORDERED: SUCR1TAB35 PO (14:36)
[2023-06-30] MEDS ORDERED: OMEP40EC23 PO (14:36)
[2023-06-30] MEDS ORDERED: METO-485 PO (14:36)
[2023-06-30 16:00] VITALS: BP 147/91; PULSE 80; RESP 18; TEMP 98.2; O2SAT 99
[2023-06-30 16:06] VITALS: BP 147/91; PULSE 80; RESP 18; TEMP 98.2
== END 2023-06-30 17:15 | disposition home or self-care (01) | DRG 241 ==
LOC: MED 19:57 → MMU 06-28 06:38
PROVIDERS: ADMIT Internal Medicine; ATTEND Internal Medicine
PROC: 0DB78ZX Excision of Stomach, Pylorus, Via Natural or Artificial Opening Endoscopic, Diagnostic (ICD-10-PCS; 2023-06-30)
PROC: 0DB68ZX Excision of Stomach, Via Natural or Artificial Opening Endoscopic, Diagnostic (ICD-10-PCS; 2023-06-30)
PROC: 0DB68ZZ Excision of Stomach, Via Natural or Artificial Opening Endoscopic (ICD-10-PCS; 2023-06-30)
PROC: 0DB48ZX Excision of Esophagogastric Junction, Via Natural or Artificial Opening Endoscopic, Diagnostic (ICD-10-PCS; principal; 2023-06-30 07:30)
DX: K29.01 Acute gastritis with bleeding (principal); E11.43 Type 2 diabetes mellitus with diabetic autonomic (poly)neuropathy; K31.84 Gastroparesis; E78.5 Hyperlipidemia, unspecified; F12.90 Cannabis use, unspecified, uncomplicated; D53.9 Nutritional anemia, unspecified; I10 Essential (primary) hypertension; I16.0 Hypertensive urgency; K21.9 Gastro-esophageal reflux disease without esophagitis; K22.70 Barrett's esophagus without dysplasia; K31.7 Polyp of stomach and duodenum; K44.9 Diaphragmatic hernia without obstruction or gangrene; K31.89 Other diseases of stomach and duodenum; R11.2 Nausea with vomiting, unspecified; Z88.8 Allergy status to other drugs, medicaments and biological substances; Z79.899 Other long term (current) drug therapy; Z90.49 Acquired absence of other specified parts of digestive tract
CPT/HCPCS: 36415; 71045; 80048; 80053; 81001; 82550; 82948; 83605; 83690; 84484; 85025; 85610; 85730; 86886; 86900; 86901; 87040; 87081; 87086; 88305; 88312; 88313; 88342; 93005; 96374; 96375; 99285; C9113; J0360; J1200; J1364; J1630; J1815; J1885; J2250; J2270; J2405; J2765; J3010; J3490; Q9967

== ENCOUNTER 2023-07-12 12:21 | Emergency (ER) | payer MEDICAID ==
[~2023-07-12] VITALS: Ht 180.3 cm; Wt 108.9 kg
[~2023-07-12 12:21] MED LIST changes: -ACET-8905 PO; +AMLO5TAB PO; -LANS30EC68 PO; +OMEP40EC23 PO; -ONDA-188 PO; -PROM25TA27 PO; +SUCR1TAB35 PO; -SUCR1TAB56 PO
[2023-07-12 12:37] VITALS: BP 198/110; PULSE 122; RESP 17; TEMP 97.6; O2SAT 98
[2023-07-12] MEDS ORDERED: ONDANSETRON 4 MG ODT PO ONE (13:35)
[2023-07-12] MEDS ORDERED: DICYCLOMINE HCL LIQUID 20 MG, ALUMINUM HYD/MAG/SIMETHICONE 30 ML, LIDOCAINE VISCOUS 2% ... PO ONE ×3 (13:35)
[2023-07-12 13:44] LABS: BASOPHILS % (AUTO) 0.3 % (0.0-2.0); EOSINOPHILS % (AUTO) 0.2 % (0.0-4.0); HEMATOCRIT 39.1 % (36-52); HEMOGLOBIN 13.4 g/dL (12.0-18.0); LYMPHOCYTES # (AUTO) 0.9 K/uL (2.0-11.5); LYMPHOCYTES % (AUTO) 10.6 % (20.5-51.1); MEAN CORPUSCULAR HEMOGLOBIN 29 pg (27-31); MEAN CORPUSCULAR HGB CONC 34 g/dL (33-37); MEAN CORPUSCULAR VOLUME 85.3 fL (80-94); MONOCYTES # (AUTO) 0.4 K/uL (0.8-1.0); MONOCYTES % (AUTO) 4.7 % (1.7-9.3); NEUTROPHILS # (AUTO) 6.8 K/uL (1.8-7.7); NEUTROPHILS % (AUTO) 84.2 % (42.2-75.2); PLATELET COUNT (AUTO) 275 K/uL (140-450); RED BLOOD CELL COUNT(AUTO) 4.59 MIL/uL (4.20-6.10); RED CELL DISTRIBUTION WIDTH 15.8 % (11.6-13.7); WHITE BLOOD COUNT (AUTO) 8.1 K/uL (4.8-10.8)
[2023-07-12] MEDS ORDERED: ALUMINUM HYD/MAG/SIMETHICONE 30 ML UDC ONE (14:07)
[2023-07-12] MEDS ORDERED: DICYCLOMINE HCL LIQUID 10 MG/5 ML UDC ONE (14:07)
[2023-07-12 14:12] LABS: ALBUMIN 4.2 g/dL (3.4-5.0); ANION GAP 15.4 (8-16); CALCIUM 9.8 mg/dL (8.5-10.1); CREATININE 1.4 mg/dL (0.6-1.3); POTASSIUM 4.4 mmol/L (3.5-5.1); TOTAL BILIRUBIN 0.4 mg/dL (0.0-1.0); TOTAL PROTEIN, SERUM 8.7 g/dL (6.4-8.2)
[2023-07-12] MEDS ORDERED: MORPHINE SULFATE 4 MG/ML SYR IM ONE (14:40)
[2023-07-12] MEDS ORDERED: OMEP40EC23 PO (14:48)
[2023-07-12] MEDS ORDERED: ALUM355S5 PO (14:48)
[2023-07-12] MEDS ORDERED: LIDO100S PO (14:48)
[2023-07-12] MEDS ORDERED: ONDA-188 PO (14:48)
[2023-07-12 15:13] VITALS: O2SAT 98
== END 2023-07-12 14:58 | disposition home or self-care (01) ==
LOC: MED 12:21
DX: A08.4 Viral intestinal infection, unspecified (principal); N17.9 Acute kidney failure, unspecified; E11.65 Type 2 diabetes mellitus with hyperglycemia; I10 Essential (primary) hypertension; Z90.49 Acquired absence of other specified parts of digestive tract; Z79.899 Other long term (current) drug therapy; Z88.8 Allergy status to other drugs, medicaments and biological substances
CPT/HCPCS: 36415; 74018; 80053; 83690; 85025; 96372; 99284; J2270; Q0162

== ENCOUNTER 2023-09-06 05:30 | Emergency (ER) | payer MEDICAID, OTHER ==
[~2023-09-06] VITALS: Ht 182.9 cm; Wt 90.7 kg
[~2023-09-06 05:30] MED LIST changes: +LIDO100S PO; +MAG-43 PO; +ONDA-188 PO
[2023-09-06 05:41] VITALS: BP 202/102; PULSE 106; RESP 20; TEMP 98.5; O2SAT 99
[2023-09-06] MEDS ORDERED: METOCLOPRAMIDE 10 MG/2 ML INJ VIAL IVP ONE ×2 (06:20→08:10)
[2023-09-06] MEDS ORDERED: FAMOTIDINE 20 MG/2 ML VIAL IVP ONE (06:20)
[2023-09-06] MEDS ORDERED: NACL 0.9% 2,000 ML IV ONE (06:20)
[2023-09-06] MEDS ORDERED: MORPHINE SULFATE 2 MG/ML SYR IVP ONE (06:20)
[2023-09-06 06:35] LABS: BASOPHILS % (AUTO) 0.3 % (0.0-2.0); EOSINOPHILS # (AUTO) 0.3 K/uL (0-0.4); EOSINOPHILS % (AUTO) 3.2 % (0.0-4.0); HEMATOCRIT 36.2 % (36-52); HEMOGLOBIN 12.3 g/dL (12.0-18.0); LYMPHOCYTES # (AUTO) 1.5 K/uL (2.0-11.5); MEAN CORPUSCULAR HEMOGLOBIN 29 pg (27-31); MEAN CORPUSCULAR HGB CONC 34 g/dL (33-37); MEAN CORPUSCULAR VOLUME 86.2 fL (80-94); MONOCYTES # (AUTO) 0.6 K/uL (0.8-1.0); NEUTROPHILS # (AUTO) 5.9 K/uL (1.8-7.7); NEUTROPHILS % (AUTO) 71.5 % (42.2-75.2); PLATELET COUNT (AUTO) 262 K/uL (140-450); RED CELL DISTRIBUTION WIDTH 16.6 % (11.6-13.7); WHITE BLOOD COUNT (AUTO) 8.2 K/uL (4.8-10.8)
[2023-09-06 06:44] LABS: ANION GAP 17.2 (8-16); CALCIUM 9.6 mg/dL (8.5-10.1); CARBON DIOXIDE 23.8 mmol/L (21-32); CREATININE 1.3 mg/dL (0.6-1.3)
[2023-09-06 06:49] LABS: ALBUMIN 3.6 g/dL (3.4-5.0); BILIRUBIN,DIRECT 0.1 mg/dL (0.0-0.3); TOTAL BILIRUBIN 0.4 mg/dL (0.0-1.0); TOTAL PROTEIN, SERUM 8.2 g/dL (6.4-8.2)
[2023-09-06] MEDS ORDERED: METO-485 PO (07:37)
[2023-09-06] MEDS ORDERED: FAMO-92 PO (07:37)
[2023-09-06] MEDS ORDERED: ALUMINUM HYD/MAG/SIMETHICONE 30 ML UDC PO ONE (09:20)
[2023-09-06] MEDS ORDERED: ONDANSETRON 4 MG/2 ML VIAL IVP ONE (09:35)
[2023-09-06] MEDS ORDERED: KETOROLAC 15 MG/ML VIAL ONE (09:48)
[2023-09-06] MEDS ORDERED: KETOROLAC 30 MG/ML VIAL IVP ONE ×2 (09:50)
[2023-09-06 10:49] VITALS: BP 138/86; PULSE 86; RESP 18; TEMP 98.2; O2SAT 99
== END 2023-09-06 10:49 | disposition home or self-care (01) ==
LOC: MED 05:30
DX: E11.43 Type 2 diabetes mellitus with diabetic autonomic (poly)neuropathy (principal); K31.84 Gastroparesis; F12.90 Cannabis use, unspecified, uncomplicated; I10 Essential (primary) hypertension; Z79.899 Other long term (current) drug therapy; Z88.8 Allergy status to other drugs, medicaments and biological substances
CPT/HCPCS: 80048; 80076; 83690; 85025; 96361; 96374; 96375; 96376; 99284; J1885; J2270; J2405; J2765; J3490; J7030

== ENCOUNTER 2023-09-19 07:03 | Emergency (ER) | payer OTHER ==
[~2023-09-19] VITALS: Ht 182.9 cm; Wt 86.2 kg
[~2023-09-19 07:03] MED LIST changes: +FAMO-92 PO
[2023-09-19 07:04] VITALS: BP 169/101; PULSE 107; RESP 18; TEMP 97.8; O2SAT 99
[2023-09-19] MEDS ORDERED: FAMOTIDINE 20 MG/2 ML VIAL IVP ONE (07:50)
[2023-09-19] MEDS ORDERED: LORazepam 2 MG/ML VIAL IVP ONE (07:50)
[2023-09-19] MEDS ORDERED: diphenhydrAMINE 50 MG/ML VIAL IVP ONE (07:50)
[2023-09-19] MEDS ORDERED: ACETAMINOPHEN 100 ML IV ONE (07:50)
[2023-09-19] MEDS ORDERED: PROCHLORPERAZINE 10 MG/2 ML VIAL IVP ONE (07:50)
[2023-09-19] MEDS ORDERED: KETOROLAC 30 MG/ML VIAL IVP ONE (07:50)
[2023-09-19] MEDS ORDERED: NACL 0.9% 1,000 ML IV ONE (07:50)
[2023-09-19 08:38] LABS: BASOPHILS % (AUTO) 0.5 % (0.0-2.0); EOSINOPHILS # (AUTO) 0.1 K/uL (0-0.4); EOSINOPHILS % (AUTO) 1.1 % (0.0-4.0); HEMATOCRIT 36.9 % (36-52); HEMOGLOBIN 12.4 g/dL (12.0-18.0); LYMPHOCYTES % (AUTO) 12.2 % (20.5-51.1); MEAN CORPUSCULAR HEMOGLOBIN 29 pg (27-31); MEAN CORPUSCULAR HGB CONC 34 g/dL (33-37); MONOCYTES # (AUTO) 0.5 K/uL (0.8-1.0); MONOCYTES % (AUTO) 5.8 % (1.7-9.3); NEUTROPHILS # (AUTO) 6.5 K/uL (1.8-7.7); NEUTROPHILS % (AUTO) 80.4 % (42.2-75.2); PLATELET COUNT (AUTO) 257 K/uL (140-450); RED BLOOD CELL COUNT(AUTO) 4.34 MIL/uL (4.20-6.10); RED CELL DISTRIBUTION WIDTH 16.2 % (11.6-13.7); WHITE BLOOD COUNT (AUTO) 8.1 K/uL (4.8-10.8)
[2023-09-19 08:56] LABS: CALCIUM 9.5 mg/dL (8.5-10.1); CARBON DIOXIDE 27.3 mmol/L (21-32); CREATININE 1.5 mg/dL (0.6-1.3); POTASSIUM 4.3 mmol/L (3.5-5.1)
[2023-09-19 09:03] LABS: ALANINE AMINOTRANSFERASE 39 U/L (12-78); ALBUMIN 3.7 g/dL (3.4-5.0); ALKALINE PHOSPHATASE 102 U/L (50-136); ASPARTATE AMINOTRANSFERASE 22 U/L (15-37); BILIRUBIN,DIRECT 0.1 mg/dL (0.0-0.3); LIPASE 83 U/L (16-77); TOTAL BILIRUBIN 0.4 mg/dL (0.0-1.0); TOTAL PROTEIN, SERUM 9.2 g/dL (6.4-8.2)
[2023-09-19] MEDS ORDERED: KETOROLAC 30 MG/ML VIAL ONE (09:05)
[2023-09-19] MEDS ORDERED: diphenhydrAMINE 50 MG/ML VIAL ONE (09:05)
[2023-09-19] MEDS ORDERED: PROCHLORPERAZINE 10 MG/2 ML VIAL ONE (09:05)
[2023-09-19] MEDS ORDERED: LORazepam 2 MG/ML VIAL ONE (09:05)
[2023-09-19] MEDS ORDERED: FAMOTIDINE 20 MG/2 ML VIAL ONE (09:06)
[2023-09-19] MEDS ORDERED: METO-486 PO (10:24)
[2023-09-19] MEDS ORDERED: ACET-10509 PO (10:24)
[2023-09-19 11:34] VITALS: BP 169/101; PULSE 101; RESP 18; TEMP 97.8; O2SAT 99
== END 2023-09-19 11:15 | disposition home or self-care (01) ==
LOC: MED 07:03
DX: E11.22 Type 2 diabetes mellitus with diabetic chronic kidney disease (principal); I12.9 Hypertensive chronic kidney disease with stage 1 through stage 4 chronic kidney disease, or unspecified chronic kidney disease; N18.9 Chronic kidney disease, unspecified; E11.43 Type 2 diabetes mellitus with diabetic autonomic (poly)neuropathy; K31.84 Gastroparesis; R11.2 Nausea with vomiting, unspecified; Z79.899 Other long term (current) drug therapy; Z88.8 Allergy status to other drugs, medicaments and biological substances
CPT/HCPCS: 36415; 80048; 80076; 83690; 84484; 85025; 93005; 96365; 96375; 99284; J0780; J1200; J1885; J2060; J3490; J7030

== ENCOUNTER 2023-10-06 07:08 | Emergency (ER) | payer MEDICAID ==
[~2023-10-06] VITALS: Ht 182.9 cm; Wt 90.7 kg
[~2023-10-06 07:08] MED LIST changes: +ACET-10509 PO; +METO-486 PO
[2023-10-06 07:20] VITALS: BP 122/88; PULSE 105; RESP 18; TEMP 88.4; O2SAT 97
[2023-10-06 07:46] VITALS: BP 150/59; PULSE 95; RESP 18; TEMP 88.4
[2023-10-06 07:47] VITALS: O2SAT 97
[2023-10-06] MEDS ORDERED: MORPHINE SULFATE 4 MG/ML SYR IM ONE (08:00)
[2023-10-06] MEDS ORDERED: HALOPERIDOL IM 5 MG/ML VIAL IM ONE (08:00)
[2023-10-06] MEDS ORDERED: ONDA8TAB87 PO (08:59)
[2023-10-06] MEDS ORDERED: ACET-503 PO (08:59)
== END 2023-10-06 09:30 | disposition home or self-care (01) ==
LOC: MED 07:08
DX: R10.13 Epigastric pain (principal); R11.2 Nausea with vomiting, unspecified; E11.9 Type 2 diabetes mellitus without complications; I10 Essential (primary) hypertension; Z90.49 Acquired absence of other specified parts of digestive tract; Z79.899 Other long term (current) drug therapy; Z88.8 Allergy status to other drugs, medicaments and biological substances
CPT/HCPCS: 81002; 96372; 99284; J1630; J2270

== ENCOUNTER 2023-10-10 06:40 | Emergency (ER) | payer MEDICAID ==
[~2023-10-10] VITALS: Ht 182.9 cm; Wt 90.7 kg
[~2023-10-10 06:40] MED LIST changes: +ACET-503 PO; +ONDA8TAB87 PO
[2023-10-10 06:54] VITALS: BP 138/95; PULSE 110; RESP 18; TEMP 98.5; O2SAT 95
[2023-10-10] MEDS: ONDANSETRON 4 MG/2 ML VIAL IVP ONE (08:09)
[2023-10-10] MEDS: MORPHINE SULFATE 4 MG/ML SYR IVP ONE (08:11)
[2023-10-10] MEDS: NACL 0.9% 1,000 ML IV ONE (08:12)
[2023-10-10 08:28] LABS: BASOPHILS % (AUTO) 0.4 % (0.0-2.0); EOSINOPHILS # (AUTO) 0.1 K/uL (0-0.4); EOSINOPHILS % (AUTO) 1.4 % (0.0-4.0); HEMATOCRIT 36.8 % (36-52); HEMOGLOBIN 12.4 g/dL (12.0-18.0); LYMPHOCYTES # (AUTO) 1.2 K/uL (2.0-11.5); LYMPHOCYTES % (AUTO) 12.8 % (20.5-51.1); MEAN CORPUSCULAR HEMOGLOBIN 28 pg (27-31); MEAN CORPUSCULAR HGB CONC 34 g/dL (33-37); MEAN CORPUSCULAR VOLUME 84.2 fL (80-94); MONOCYTES # (AUTO) 0.6 K/uL (0.8-1.0); MONOCYTES % (AUTO) 6.3 % (1.7-9.3); NEUTROPHILS # (AUTO) 7.5 K/uL (1.8-7.7); NEUTROPHILS % (AUTO) 79.1 % (42.2-75.2); PLATELET COUNT (AUTO) 255 K/uL (140-450); RED BLOOD CELL COUNT(AUTO) 4.37 MIL/uL (4.20-6.10); WHITE BLOOD COUNT (AUTO) 9.4 K/uL (4.8-10.8)
[2023-10-10 08:46] LABS: ANION GAP 15.4 (8-16); CALCIUM 9.3 mg/dL (8.5-10.1); CARBON DIOXIDE 24.7 mmol/L (21-32); CREATININE 1.6 mg/dL (0.6-1.3); POTASSIUM 4.1 mmol/L (3.5-5.1)
[2023-10-10 08:55] LABS: LIPASE 45 U/L (16-77)
[2023-10-10 10:14] VITALS: BP 137/92; PULSE 99; RESP 19; TEMP 98.1; O2SAT 98
== END 2023-10-10 10:15 | disposition home or self-care (01) ==
LOC: MED 06:40
DX: E11.43 Type 2 diabetes mellitus with diabetic autonomic (poly)neuropathy (principal); K31.84 Gastroparesis; I10 Essential (primary) hypertension; Z79.899 Other long term (current) drug therapy; Z88.8 Allergy status to other drugs, medicaments and biological substances
CPT/HCPCS: 36415; 74022; 80048; 82948; 83690; 84484; 85025; 93005; 96361; 96374; 96375; 99285; J2270; J2405; J7030

== ENCOUNTER 2023-10-17 07:17 | Emergency (ER) | payer MEDICAID ==
[~2023-10-17] VITALS: Ht 182.9 cm; Wt 90.7 kg
[2023-10-17 07:47] VITALS: BP 126/80; PULSE 100; RESP 20; TEMP 98.6; O2SAT 99
[2023-10-17 08:53] LABS: BASOPHILS % (AUTO) 0.6 % (0.0-2.0); EOSINOPHILS # (AUTO) 0.2 K/uL (0-0.4); EOSINOPHILS % (AUTO) 2.8 % (0.0-4.0); HEMOGLOBIN 12.8 g/dL (12.0-18.0); LYMPHOCYTES # (AUTO) 1.3 K/uL (2.0-11.5); LYMPHOCYTES % (AUTO) 16.3 % (20.5-51.1); MEAN CORPUSCULAR HEMOGLOBIN 28 pg (27-31); MEAN CORPUSCULAR HGB CONC 34 g/dL (33-37); MEAN CORPUSCULAR VOLUME 84.1 fL (80-94); MONOCYTES # (AUTO) 0.5 K/uL (0.8-1.0); MONOCYTES % (AUTO) 6.4 % (1.7-9.3); NEUTROPHILS % (AUTO) 73.9 % (42.2-75.2); PLATELET COUNT (AUTO) 309 K/uL (140-450); RED BLOOD CELL COUNT(AUTO) 4.52 MIL/uL (4.20-6.10); RED CELL DISTRIBUTION WIDTH 17.2 % (11.6-13.7); WHITE BLOOD COUNT (AUTO) 8.2 K/uL (4.8-10.8)
[2023-10-17] MEDS ORDERED: DICYCLOMINE HCL LIQUID 20 MG, ALUMINUM HYD/MAG/SIMETHICONE 30 ML, LIDOCAINE VISCOUS 2% ... PO ONE ×3 (08:55)
[2023-10-17] MEDS ORDERED: METOCLOPRAMIDE 10 MG/2 ML INJ VIAL IM ONE (08:55)
[2023-10-17 09:03] LABS: ANION GAP 12.7 (8-16); CALCIUM 9.3 mg/dL (8.5-10.1); CARBON DIOXIDE 25.4 mmol/L (21-32); CREATININE 1.6 mg/dL (0.6-1.3); POTASSIUM 4.1 mmol/L (3.5-5.1)
[2023-10-17 09:09] LABS: ALBUMIN 3.6 g/dL (3.4-5.0); TOTAL BILIRUBIN 0.3 mg/dL (0.0-1.0); TOTAL PROTEIN, SERUM 9.3 g/dL (6.4-8.2)
[2023-10-17] MEDS ORDERED: ALUMINUM HYD/MAG/SIMETHICONE 30 ML UDC ONE (09:23)
[2023-10-17] MEDS ORDERED: DICYCLOMINE HCL LIQUID 10 MG/5 ML UDC ONE (09:23)
[2023-10-17 09:40] LABS: APPEARANCE,URINE CLEAR (CLEAR); BILIRUBIN,URINE NEGATIVE (NEGATIVE); BLOOD, URINE TRACE-I (NEGATIVE); COLOR,URINE YELLOW (YELLOW); LEUKOCYTE ESTERASE ,URINE NEGATIVE (NEGATIVE); NITRITE, URINE NEGATIVE (NEGATIVE); PROTEIN,URINE 3+ (NEGATIVE); UGLUCOSE 1+ (NEGATIVE); UROBILINOGEN,URINE 0.2 EU/dL (0.2 - 1)
[2023-10-17 09:48] LABS: BACTERIA,URINE FEW /HPF (None Seen); RBC,URINE 0-5 /HPF (0-5); SQUAMOUS EPITHELIAL CELL,UR 0-3 (FEW) /LPF (0-3 (FEW)); WBC,URINE 0-5 /HPF (0-5)
[2023-10-17] MEDS ORDERED: KETOROLAC 30 MG/ML VIAL IM ONE (09:50)
[2023-10-17] MEDS ORDERED: MORPHINE SULFATE 4 MG/ML SYR IM ONE (10:10)
[2023-10-17] MEDS ORDERED: BEN10 PO (11:53)
[2023-10-17] MEDS ORDERED: ONDA-188 SL (11:53)
== END 2023-10-17 12:50 | disposition home or self-care (01) ==
LOC: MED 07:17
DX: E11.43 Type 2 diabetes mellitus with diabetic autonomic (poly)neuropathy (principal); K31.84 Gastroparesis; I10 Essential (primary) hypertension; Z79.4 Long term (current) use of insulin; Z79.899 Other long term (current) drug therapy
CPT/HCPCS: 36415; 74018; 80053; 81001; 83690; 85025; 96372; 99284; J1885; J2270; J2765

== ENCOUNTER 2023-10-22 05:38 | Emergency (ER) | payer MEDICAID ==
[~2023-10-22] VITALS: Ht 182.9 cm; Wt 90.7 kg
[~2023-10-22 05:38] MED LIST changes: +ONDA-188 SL
[2023-10-22 05:40] VITALS: BP 134/79; PULSE 109; RESP 18; TEMP 97.4; O2SAT 100
[2023-10-22] MEDS ORDERED: HALOPERIDOL IM 5 MG/ML VIAL IM ONE (06:30)
[2023-10-22] MEDS ORDERED: FAMOTIDINE 20 MG TAB PO ONE (06:30)
[2023-10-22] MEDS ORDERED: MORPHINE SULFATE 4 MG/ML SYR IM ONE (06:30)
[2023-10-22] MEDS ORDERED: ALUMINUM HYD/MAG/SIMETHICONE 30 ML UDC PO ONE (06:30)
[2023-10-22 07:13] LABS: BASOPHILS # (AUTO) 0.1 K/uL (0.00-0.22); BASOPHILS % (AUTO) 1.1 % (0.0-2.0); EOSINOPHILS # (AUTO) 0.2 K/uL (0-0.4); EOSINOPHILS % (AUTO) 2.2 % (0.0-4.0); HEMATOCRIT 34.2 % (36-52); HEMOGLOBIN 11.4 g/dL (12.0-18.0); LYMPHOCYTES # (AUTO) 1.1 K/uL (2.0-11.5); LYMPHOCYTES % (AUTO) 13.3 % (20.5-51.1); MEAN CORPUSCULAR HEMOGLOBIN 28 pg (27-31); MEAN CORPUSCULAR HGB CONC 34 g/dL (33-37); MEAN CORPUSCULAR VOLUME 83.8 fL (80-94); MONOCYTES # (AUTO) 0.5 K/uL (0.8-1.0); MONOCYTES % (AUTO) 5.4 % (1.7-9.3); NEUTROPHILS # (AUTO) 6.6 K/uL (1.8-7.7); PLATELET COUNT (AUTO) 262 K/uL (140-450); RED BLOOD CELL COUNT(AUTO) 4.08 MIL/uL (4.20-6.10); WHITE BLOOD COUNT (AUTO) 8.5 K/uL (4.8-10.8)
[2023-10-22 07:19] LABS: ANION GAP 17.6 (8-16); CALCIUM 9.1 mg/dL (8.5-10.1); CARBON DIOXIDE 22.4 mmol/L (21-32); CREATININE 1.4 mg/dL (0.6-1.3)
[2023-10-22 07:33] LABS: ALANINE AMINOTRANSFERASE 26 U/L (12-78); ALBUMIN 3.5 g/dL (3.4-5.0); ALKALINE PHOSPHATASE 99 U/L (50-136); ASPARTATE AMINOTRANSFERASE 17 U/L (15-37); BILIRUBIN,DIRECT 0.1 mg/dL (0.0-0.3); LIPASE 45 U/L (16-77); TOTAL BILIRUBIN 0.2 mg/dL (0.0-1.0); TOTAL PROTEIN, SERUM 8.6 g/dL (6.4-8.2)
[2023-10-22] MEDS ORDERED: FAMOTIDINE 20 MG TAB ONE (07:49)
[2023-10-22] MEDS ORDERED: ALUMINUM HYD/MAG/SIMETHICONE 30 ML UDC ONE (07:49)
[2023-10-22] MEDS ORDERED: ONDA-188 PO (08:16)
[2023-10-22 08:22] VITALS: BP 162/90; PULSE 117; RESP 12; TEMP 97.4; O2SAT 100
== END 2023-10-22 08:22 | disposition home or self-care (01) ==
LOC: MED 05:38
DX: R11.2 Nausea with vomiting, unspecified (principal); K31.84 Gastroparesis; E11.43 Type 2 diabetes mellitus with diabetic autonomic (poly)neuropathy; R10.9 Unspecified abdominal pain; K29.70 Gastritis, unspecified, without bleeding; I10 Essential (primary) hypertension; K21.9 Gastro-esophageal reflux disease without esophagitis; Z79.4 Long term (current) use of insulin; Z79.899 Other long term (current) drug therapy
CPT/HCPCS: 36415; 80048; 80076; 83690; 84484; 85025; 93005; 96372; 99284; J1630; J2270

== ENCOUNTER 2023-10-23 07:00 | Emergency (ER) | payer MEDICAID ==
[~2023-10-23] VITALS: Ht 182.9 cm; Wt 90.7 kg
[2023-10-23 07:21] VITALS: BP 137/69; PULSE 110; RESP 18; TEMP 98.1; O2SAT 99
== END 2023-10-23 10:50 | disposition left against medical advice (07) ==
LOC: MED 07:00
DX: R10.9 Unspecified abdominal pain (principal); Z53.21 Procedure and treatment not carried out due to patient leaving prior to being seen by health care provider
CPT/HCPCS: 99281

== ENCOUNTER 2023-12-19 09:42 | Emergency (ER) | payer MEDICAID, OTHER ==
[~2023-12-19] VITALS: Ht 182.9 cm; Wt 90.7 kg
[2023-12-19 09:50] VITALS: BP 162/92; PULSE 109; RESP 20; TEMP 98.2; O2SAT 99
[2023-12-19 11:15] VITALS: O2SAT 99
[2023-12-19 11:18] LABS: BASOPHILS % (AUTO) 0.2 % (0.0-2.0); EOSINOPHILS % (AUTO) 0.2 % (0.0-4.0); HEMATOCRIT 36.8 % (36-52); HEMOGLOBIN 12.2 g/dL (12.0-18.0); LYMPHOCYTES # (AUTO) 0.8 K/uL (2.0-11.5); LYMPHOCYTES % (AUTO) 6.5 % (20.5-51.1); MEAN CORPUSCULAR HEMOGLOBIN 28 pg (27-31); MEAN CORPUSCULAR HGB CONC 33 g/dL (33-37); MONOCYTES # (AUTO) 0.4 K/uL (0.8-1.0); MONOCYTES % (AUTO) 3.4 % (1.7-9.3); NEUTROPHILS # (AUTO) 10.4 K/uL (1.8-7.7); NEUTROPHILS % (AUTO) 89.7 % (42.2-75.2); PLATELET COUNT (AUTO) 287 K/uL (140-450); RED BLOOD CELL COUNT(AUTO) 4.43 MIL/uL (4.20-6.10); RED CELL DISTRIBUTION WIDTH 16.7 % (11.6-13.7); WHITE BLOOD COUNT (AUTO) 11.6 K/uL (4.8-10.8)
[2023-12-19] MEDS: NACL 0.9% 2,000 ML IV ONE (11:24)
[2023-12-19] MEDS: FAMOTIDINE 20 MG/2 ML VIAL IVP ONE (11:27)
[2023-12-19] MEDS: METOCLOPRAMIDE 10 MG/2 ML INJ VIAL IVP ONE (11:32)
[2023-12-19] MEDS: MORPHINE SULFATE 2 MG/ML SYR IVP ONE (11:37)
[2023-12-19 11:44] LABS: ANION GAP 15.7 (8-16); CALCIUM 9.2 mg/dL (8.5-10.1); CARBON DIOXIDE 23.1 mmol/L (21-32); CREATININE 1.3 mg/dL (0.6-1.3); POTASSIUM 3.8 mmol/L (3.5-5.1)
[2023-12-19 11:53] LABS: BILIRUBIN,DIRECT 0.1 mg/dL (0.0-0.3); TOTAL BILIRUBIN 0.3 mg/dL (0.0-1.0); TOTAL PROTEIN, SERUM 8.6 g/dL (6.4-8.2)
[2023-12-19] MEDS ORDERED: HALOPERIDOL IM 5 MG/ML VIAL ONE (13:09)
[2023-12-19] MEDS: HALOPERIDOL IM 5 MG/ML VIAL IM ONE ×2 (13:10→14:51)
[2023-12-19 14:15] LABS: APPEARANCE,URINE CLEAR (CLEAR); BILIRUBIN,URINE NEGATIVE (NEGATIVE); BLOOD, URINE 1+ (NEGATIVE); COLOR,URINE YELLOW (YELLOW); LEUKOCYTE ESTERASE ,URINE NEGATIVE (NEGATIVE); NITRITE, URINE NEGATIVE (NEGATIVE); PROTEIN,URINE 2+ (NEGATIVE); UGLUCOSE 3+ (NEGATIVE); UROBILINOGEN,URINE 0.2 EU/dL (0.2 - 1)
[2023-12-19 14:17] LABS: BACTERIA,URINE OCCASSIONAL /HPF (None Seen); RBC,URINE 0-5 /HPF (0-5); SQUAMOUS EPITHELIAL CELL,UR 0-3 (FEW) /LPF (0-3 (FEW)); WBC,URINE 0-5 /HPF (0-5)
[2023-12-19 16:30] VITALS: BP 143/86; PULSE 82; RESP 20; TEMP 98.2; O2SAT 99
== END 2023-12-19 16:04 | disposition home or self-care (01) ==
LOC: MED 09:42
DX: E11.43 Type 2 diabetes mellitus with diabetic autonomic (poly)neuropathy (principal); K31.84 Gastroparesis; R11.2 Nausea with vomiting, unspecified; I10 Essential (primary) hypertension; K21.9 Gastro-esophageal reflux disease without esophagitis; Z79.4 Long term (current) use of insulin; Z79.899 Other long term (current) drug therapy
CPT/HCPCS: 36415; 80048; 80076; 81001; 83690; 85025; 96361; 96372; 96374; 96375; 99285; J1630; J2270; J2765; J3490; J7030

== ENCOUNTER 2024-01-10 19:12 | Emergency (ER) | payer OTHER ==
[~2024-01-10] VITALS: Ht 182.9 cm; Wt 90.7 kg
[~2024-01-10 19:12] MED LIST changes: +SUCR-34 PO; -SUCR1TAB35 PO
[2024-01-10 19:20] VITALS: BP 160/112; PULSE 111; RESP 18; TEMP 97.8; O2SAT 97
[2024-01-10] MEDS: NACL 0.9% 1,000 ML IV ONE (20:19)
[2024-01-10] MEDS: KETOROLAC 30 MG/ML VIAL IVP ONE (20:26)
[2024-01-10] MEDS: HALOPERIDOL IM 5 MG/ML VIAL IM ONE (20:27)
[2024-01-10] MEDS: FAMOTIDINE 20 MG/2 ML VIAL IVP ONE (20:28)
[2024-01-10] MEDS: diphenhydrAMINE 50 MG/ML VIAL IM ONE (20:31)
[2024-01-10] MEDS: DICYCLOMINE HCL LIQUID 10 MG/5 ML UDC PO ONE (20:32)
[2024-01-10 20:33] LABS: BASOPHILS % (AUTO) 0.5 % (0.0-2.0); EOSINOPHILS % (AUTO) 0.4 % (0.0-4.0); HEMATOCRIT 35.3 % (36-52); HEMOGLOBIN 11.9 g/dL (12.0-18.0); LYMPHOCYTES # (AUTO) 0.9 K/uL (2.0-11.5); LYMPHOCYTES % (AUTO) 13.1 % (20.5-51.1); MEAN CORPUSCULAR HEMOGLOBIN 28 pg (27-31); MEAN CORPUSCULAR HGB CONC 34 g/dL (33-37); MEAN CORPUSCULAR VOLUME 82.9 fL (80-94); MONOCYTES # (AUTO) 0.6 K/uL (0.8-1.0); MONOCYTES % (AUTO) 9.2 % (1.7-9.3); NEUTROPHILS % (AUTO) 76.8 % (42.2-75.2); PLATELET COUNT (AUTO) 300 K/uL (140-450); RED BLOOD CELL COUNT(AUTO) 4.26 MIL/uL (4.20-6.10); RED CELL DISTRIBUTION WIDTH 16.4 % (11.6-13.7); WHITE BLOOD COUNT (AUTO) 6.5 K/uL (4.8-10.8)
[2024-01-10 20:45] LABS: ANION GAP 14.8 (8-16); CALCIUM 8.7 mg/dL (8.5-10.1); CARBON DIOXIDE 24.9 mmol/L (21-32); CREATININE 1.3 mg/dL (0.6-1.3); POTASSIUM 3.7 mmol/L (3.5-5.1)
[2024-01-10 20:52] LABS: ALBUMIN 3.4 g/dL (3.4-5.0); BILIRUBIN,DIRECT 0.1 mg/dL (0.0-0.3); TOTAL BILIRUBIN 0.4 mg/dL (0.0-1.0); TOTAL PROTEIN, SERUM 7.6 g/dL (6.4-8.2)
[2024-01-10] MEDS ORDERED: SUCR-34 PO (21:58)
[2024-01-10 22:27] VITALS: BP 160/112; PULSE 111; RESP 18; TEMP 97.8; O2SAT 97
== END 2024-01-10 22:25 | disposition home or self-care (01) ==
LOC: MED 19:12
DX: R11.2 Nausea with vomiting, unspecified (principal); R10.33 Periumbilical pain; E11.9 Type 2 diabetes mellitus without complications; I10 Essential (primary) hypertension; K21.9 Gastro-esophageal reflux disease without esophagitis; Z88.8 Allergy status to other drugs, medicaments and biological substances; Z79.899 Other long term (current) drug therapy; Z79.4 Long term (current) use of insulin
CPT/HCPCS: 36415; 80048; 80076; 83690; 85025; 96361; 96372; 96374; 96375; 99284; J1200; J1630; J1885; J3490; J7030

== ENCOUNTER 2024-01-12 14:59 | Emergency (ER) | payer OTHER ==
[~2024-01-12] VITALS: Ht 182.9 cm; Wt 89.4 kg
[2024-01-12 15:14] VITALS: BP 151/107; PULSE 124; RESP 20; TEMP 98.1; O2SAT 97
[2024-01-12] MEDS: MORPHINE SULFATE 4 MG/ML SYR IVP ONE ×3 (16:08→17:55)
[2024-01-12] MEDS: ONDANSETRON 4 MG/2 ML VIAL IVP ONE (16:09)
[2024-01-12] MEDS: NACL 0.9% 1,000 ML IV SCH (16:10)
[2024-01-12 16:19] LABS: BASOPHILS % (AUTO) 0.1 % (0.0-2.0); EOSINOPHILS # (AUTO) 0.1 K/uL (0-0.4); EOSINOPHILS % (AUTO) 0.6 % (0.0-4.0); HEMATOCRIT 33.8 % (36-52); HEMOGLOBIN 11.5 g/dL (12.0-18.0); LYMPHOCYTES # (AUTO) 0.9 K/uL (2.0-11.5); LYMPHOCYTES % (AUTO) 10.3 % (20.5-51.1); MEAN CORPUSCULAR HEMOGLOBIN 28 pg (27-31); MEAN CORPUSCULAR HGB CONC 34 g/dL (33-37); MEAN CORPUSCULAR VOLUME 82.5 fL (80-94); MONOCYTES # (AUTO) 0.6 K/uL (0.8-1.0); MONOCYTES % (AUTO) 6.9 % (1.7-9.3); NEUTROPHILS # (AUTO) 7.5 K/uL (1.8-7.7); NEUTROPHILS % (AUTO) 82.1 % (42.2-75.2); PLATELET COUNT (AUTO) 281 K/uL (140-450); RED BLOOD CELL COUNT(AUTO) 4.09 MIL/uL (4.20-6.10); RED CELL DISTRIBUTION WIDTH 16.2 % (11.6-13.7); WHITE BLOOD COUNT (AUTO) 9.1 K/uL (4.8-10.8)
[2024-01-12 16:28] LABS: ANION GAP 13.5 (8-16); CALCIUM 9.2 mg/dL (8.5-10.1); CARBON DIOXIDE 27.3 mmol/L (21-32); CREATININE 1.3 mg/dL (0.6-1.3); POTASSIUM 3.8 mmol/L (3.5-5.1)
[2024-01-12 16:34] LABS: ALBUMIN 3.6 g/dL (3.4-5.0); BILIRUBIN,DIRECT 0.1 mg/dL (0.0-0.3); TOTAL BILIRUBIN 0.4 mg/dL (0.0-1.0); TOTAL PROTEIN, SERUM 7.8 g/dL (6.4-8.2)
[2024-01-12] MEDS ORDERED: IBUP-2213 PO (17:57)
[2024-01-12] MEDS ORDERED: ACET-8905 PO (17:57)
[2024-01-12 18:11] VITALS: BP 180/108; PULSE 106; RESP 20; TEMP 98.1; O2SAT 98
== END 2024-01-12 18:11 | disposition home or self-care (01) ==
LOC: MED 14:59
DX: R10.31 Right lower quadrant pain (principal); E11.9 Type 2 diabetes mellitus without complications; I10 Essential (primary) hypertension; K21.9 Gastro-esophageal reflux disease without esophagitis; F12.90 Cannabis use, unspecified, uncomplicated; Z79.4 Long term (current) use of insulin; Z79.899 Other long term (current) drug therapy
CPT/HCPCS: 36415; 74176; 80048; 80076; 83690; 85025; 96361; 96374; 96375; 96376; 99285; J2270; J2405; J7030

== ENCOUNTER 2024-01-15 09:17 | Emergency (ER) | payer OTHER ==
[~2024-01-15] VITALS: Ht 182.9 cm; Wt 90.7 kg
[~2024-01-15 09:17] MED LIST changes: +ACET-8905 PO; +IBUP-2213 PO
[2024-01-15 09:23] VITALS: BP 160/102; PULSE 94; RESP 18; TEMP 98.5; O2SAT 98
[2024-01-15] MEDS: ONDANSETRON 4 MG ODT PO ONE (10:18)
[2024-01-15] MEDS: FAMOTIDINE 20 MG TAB PO ONE (10:19)
[2024-01-15] MEDS: KETOROLAC 30 MG/ML VIAL IM ONE (10:20)
[2024-01-15] MEDS ORDERED: LACT-191 PO (10:38)
[2024-01-16] MEDS ORDERED: METO-485 PO (11:40)
== END 2024-01-15 10:46 | disposition home or self-care (01) ==
LOC: MED 09:17
DX: K59.00 Constipation, unspecified (principal); G89.29 Other chronic pain; F11.90 Opioid use, unspecified, uncomplicated; I10 Essential (primary) hypertension; K21.9 Gastro-esophageal reflux disease without esophagitis; E11.9 Type 2 diabetes mellitus without complications; Z90.49 Acquired absence of other specified parts of digestive tract; Z79.84 Long term (current) use of oral hypoglycemic drugs; Z79.1 Long term (current) use of non-steroidal anti-inflammatories (NSAID); Z79.899 Other long term (current) drug therapy; Z88.8 Allergy status to other drugs, medicaments and biological substances
CPT/HCPCS: 96372; 99283; J1885; Q0162

== ENCOUNTER 2024-01-16 08:32 | Emergency (ER) | payer OTHER ==
[~2024-01-16] VITALS: Ht 182.9 cm; Wt 88.6 kg
[~2024-01-16 08:32] MED LIST changes: +LACT-191 PO
[2024-01-16 08:47] VITALS: BP 163/100; PULSE 101; RESP 19; TEMP 98.1; O2SAT 99
[2024-01-16 09:06] VITALS: O2SAT 99
[2024-01-16] MEDS: NACL 0.9% 1,000 ML IV SCH (09:45)
[2024-01-16] MEDS: KETOROLAC 30 MG/ML VIAL IVP ONE (09:57)
[2024-01-16] MEDS: METOCLOPRAMIDE 10 MG/2 ML INJ VIAL IVP ONE (09:58)
[2024-01-16 10:03] LABS: BASOPHILS % (AUTO) 0.3 % (0.0-2.0); EOSINOPHILS % (AUTO) 0.3 % (0.0-4.0); HEMATOCRIT 34.9 % (36-52); HEMOGLOBIN 11.8 g/dL (12.0-18.0); LYMPHOCYTES # (AUTO) 0.7 K/uL (2.0-11.5); LYMPHOCYTES % (AUTO) 8.9 % (20.5-51.1); MEAN CORPUSCULAR HEMOGLOBIN 28 pg (27-31); MEAN CORPUSCULAR HGB CONC 34 g/dL (33-37); MONOCYTES # (AUTO) 0.4 K/uL (0.8-1.0); MONOCYTES % (AUTO) 5.1 % (1.7-9.3); NEUTROPHILS % (AUTO) 85.4 % (42.2-75.2); PLATELET COUNT (AUTO) 251 K/uL (140-450); RED CELL DISTRIBUTION WIDTH 16.7 % (11.6-13.7); WHITE BLOOD COUNT (AUTO) 8.2 K/uL (4.8-10.8)
[2024-01-16 10:10] LABS: CARBON DIOXIDE 24.7 mmol/L (21-32); CREATININE 1.3 mg/dL (0.6-1.3); POTASSIUM 3.7 mmol/L (3.5-5.1)
[2024-01-16 10:16] LABS: ALBUMIN 3.8 g/dL (3.4-5.0); BILIRUBIN,DIRECT 0.1 mg/dL (0.0-0.3); TOTAL BILIRUBIN 0.6 mg/dL (0.0-1.0)
[2024-01-16] MEDS ORDERED: METO-485 PO (11:40)
[2024-01-16] MEDS: MORPHINE SULFATE 4 MG/ML SYR IVP ONE (11:53)
== END 2024-01-16 12:25 | disposition home or self-care (01) ==
LOC: MED 08:32
DX: R10.84 Generalized abdominal pain (principal); R11.2 Nausea with vomiting, unspecified; I10 Essential (primary) hypertension; E11.43 Type 2 diabetes mellitus with diabetic autonomic (poly)neuropathy; K21.9 Gastro-esophageal reflux disease without esophagitis; Z90.49 Acquired absence of other specified parts of digestive tract; Z79.84 Long term (current) use of oral hypoglycemic drugs; Z79.1 Long term (current) use of non-steroidal anti-inflammatories (NSAID); Z79.899 Other long term (current) drug therapy; Z88.8 Allergy status to other drugs, medicaments and biological substances
CPT/HCPCS: 36415; 80048; 80076; 83690; 85025; 96361; 96374; 96375; 99284; J1885; J2270; J2765; J7030

== ENCOUNTER 2024-01-22 07:14 | Emergency (ER) | payer OTHER ==
[~2024-01-22] VITALS: Ht 182.9 cm; Wt 90.7 kg
[2024-01-22 07:32] VITALS: BP 189/101; PULSE 80; RESP 18; TEMP 98.3
[2024-01-22] MEDS: hydrALAZINE 20 MG/ML VIAL IM ONE (08:13)
[2024-01-22] MEDS: ONDANSETRON 4 MG/2 ML VIAL IVP ONE (08:18)
[2024-01-22] MEDS: MORPHINE SULFATE 4 MG/ML SYR IVP ONE ×2 (08:20→10:50)
[2024-01-22 08:28] LABS: BASOPHILS # (AUTO) 0.1 K/uL (0.00-0.22); BASOPHILS % (AUTO) 0.8 % (0.0-2.0); EOSINOPHILS # (AUTO) 0.2 K/uL (0-0.4); EOSINOPHILS % (AUTO) 3.1 % (0.0-4.0); LYMPHOCYTES # (AUTO) 1.1 K/uL (2.0-11.5); LYMPHOCYTES % (AUTO) 16.7 % (20.5-51.1); MEAN CORPUSCULAR HEMOGLOBIN 28 pg (27-31); MEAN CORPUSCULAR HGB CONC 33 g/dL (33-37); MEAN CORPUSCULAR VOLUME 85.1 fL (80-94); MONOCYTES # (AUTO) 0.6 K/uL (0.8-1.0); MONOCYTES % (AUTO) 8.4 % (1.7-9.3); NEUTROPHILS # (AUTO) 4.8 K/uL (1.8-7.7); PLATELET COUNT (AUTO) 246 K/uL (140-450); RED BLOOD CELL COUNT(AUTO) 3.87 MIL/uL (4.20-6.10); RED CELL DISTRIBUTION WIDTH 17.3 % (11.6-13.7); WHITE BLOOD COUNT (AUTO) 6.7 K/uL (4.8-10.8)
[2024-01-22 08:29] LABS: CALCIUM 9.1 mg/dL (8.5-10.1); CARBON DIOXIDE 25.5 mmol/L (21-32); POTASSIUM 4.5 mmol/L (3.5-5.1)
[2024-01-22] MEDS: NACL 0.9% 1,000 ML IV ONE (08:34)
[2024-01-22 08:36] LABS: ALBUMIN 3.2 g/dL (3.4-5.0); TOTAL BILIRUBIN 0.2 mg/dL (0.0-1.0); TOTAL PROTEIN, SERUM 7.3 g/dL (6.4-8.2)
[2024-01-22 10:04] LABS: APPEARANCE,URINE CLEAR (CLEAR); BILIRUBIN,URINE NEGATIVE (NEGATIVE); BLOOD, URINE TRACE-I (NEGATIVE); COLOR,URINE YELLOW (YELLOW); LEUKOCYTE ESTERASE ,URINE NEGATIVE (NEGATIVE); NITRITE, URINE NEGATIVE (NEGATIVE); PH,URINE 6.5 (5.0-9.0); PROTEIN,URINE 2+ (NEGATIVE); UGLUCOSE 1+ (NEGATIVE); UROBILINOGEN,URINE 0.2 EU/dL (0.2 - 1)
[2024-01-22 10:29] LABS: CANNABINOID, URINE POSITIVE ng/mL (NEG <=50)
[2024-01-22 10:30] LABS: AMPHETAMINE, URINE NEGATIVE ng/ml (NEG <=1000); BARBITURATE, URINE NEGATIVE ng/ml (NEG <=200); BENZODIAZEPINE, URINE NEGATIVE ng/mL (NEG <=200); COCAINE, URINE POSITIVE ng/mL (NEG <=300); OPIATE, URINE POSITIVE ng/mL (NEG <=2000); PHENCYCLIDINE SCREEN,URINE NEGATIVE ng/mL (NEG <=25)
[2024-01-22 10:41] LABS: RBC,URINE 0-5 /HPF (0-5); WBC,URINE 0-5 /HPF (0-5)
[2024-01-22 10:42] LABS: BACTERIA,URINE OCCASSIONAL /HPF (None Seen); SQUAMOUS EPITHELIAL CELL,UR 0-3 (FEW) /LPF (0-3 (FEW))
[2024-01-22] MEDS ORDERED: BEN10 PO (11:27)
[2024-01-22] MEDS ORDERED: IBUP-2213 PO (11:27)
[2024-01-22] MEDS ORDERED: ACET-10509 PO (11:27)
[2024-01-22 11:35] VITALS: BP 165/87; PULSE 83; RESP 15; TEMP 36.83628; O2SAT 99
== END 2024-01-22 11:35 | disposition home or self-care (01) ==
LOC: MED 07:14
DX: R10.32 Left lower quadrant pain (principal); R10.31 Right lower quadrant pain; D64.9 Anemia, unspecified; F14.10 Cocaine abuse, uncomplicated; F12.10 Cannabis abuse, uncomplicated; E11.9 Type 2 diabetes mellitus without complications; K21.9 Gastro-esophageal reflux disease without esophagitis; I10 Essential (primary) hypertension; Z79.1 Long term (current) use of non-steroidal anti-inflammatories (NSAID); Z79.84 Long term (current) use of oral hypoglycemic drugs; Z79.899 Other long term (current) drug therapy; Z88.8 Allergy status to other drugs, medicaments and biological substances
CPT/HCPCS: 36415; 74176; 80053; 80305; 81001; 83690; 85025; 96361; 96372; 96374; 96375; 96376; 99285; J0360; J2270; J2405; J7030

== ENCOUNTER 2024-02-07 06:55 | Emergency (ER) | payer OTHER ==
[~2024-02-07] VITALS: Ht 182.9 cm; Wt 90.7 kg
[~2024-02-07 06:55] MED LIST changes: +SUCR-3 PO; -SUCR-34 PO
[2024-02-07 07:18] VITALS: BP 187/104; PULSE 115; RESP 20; TEMP 97.8; O2SAT 97
[2024-02-07 07:40] VITALS: O2SAT 97
[2024-02-07 08:10] LABS: BASOPHILS % (AUTO) 0.4 % (0.0-2.0); EOSINOPHILS # (AUTO) 0.2 K/uL (0-0.4); EOSINOPHILS % (AUTO) 2.1 % (0.0-4.0); HEMATOCRIT 34.5 % (36-52); HEMOGLOBIN 11.5 g/dL (12.0-18.0); LYMPHOCYTES # (AUTO) 1.1 K/uL (2.0-11.5); LYMPHOCYTES % (AUTO) 13.1 % (20.5-51.1); MEAN CORPUSCULAR HEMOGLOBIN 28 pg (27-31); MEAN CORPUSCULAR HGB CONC 34 g/dL (33-37); MEAN CORPUSCULAR VOLUME 82.9 fL (80-94); MONOCYTES # (AUTO) 0.5 K/uL (0.8-1.0); MONOCYTES % (AUTO) 6.7 % (1.7-9.3); NEUTROPHILS # (AUTO) 6.3 K/uL (1.8-7.7); NEUTROPHILS % (AUTO) 77.7 % (42.2-75.2); PLATELET COUNT (AUTO) 262 K/uL (140-450); RED BLOOD CELL COUNT(AUTO) 4.16 MIL/uL (4.20-6.10); RED CELL DISTRIBUTION WIDTH 16.7 % (11.6-13.7); WHITE BLOOD COUNT (AUTO) 8.1 K/uL (4.8-10.8)
[2024-02-07 08:13] LABS: ANION GAP 18.7 (8-16); CALCIUM 9.1 mg/dL (8.5-10.1); CARBON DIOXIDE 22.1 mmol/L (21-32); CREATININE 1.3 mg/dL (0.6-1.3); POTASSIUM 3.8 mmol/L (3.5-5.1)
[2024-02-07 08:18] LABS: ALBUMIN 3.4 g/dL (3.4-5.0); BILIRUBIN,DIRECT 0.1 mg/dL (0.0-0.3); TOTAL BILIRUBIN 0.2 mg/dL (0.0-1.0); TOTAL PROTEIN, SERUM 7.6 g/dL (6.4-8.2)
[2024-02-07] MEDS: PROCHLORPERAZINE 10 MG/2 ML VIAL IM ONE (08:20)
[2024-02-07] MEDS: KETOROLAC 60 MG/2 ML VIAL IM ONE (08:20)
[2024-02-07] MEDS ORDERED: TRAM-748 PO (09:04)
[2024-02-07 09:20] VITALS: BP 137/60; PULSE 88; RESP 20; TEMP 98.3; O2SAT 98
== END 2024-02-07 09:10 | disposition home or self-care (01) ==
LOC: MED 06:55
DX: K31.84 Gastroparesis (principal); E11.9 Type 2 diabetes mellitus without complications; K21.9 Gastro-esophageal reflux disease without esophagitis; I10 Essential (primary) hypertension; Z79.84 Long term (current) use of oral hypoglycemic drugs; Z79.1 Long term (current) use of non-steroidal anti-inflammatories (NSAID); Z79.899 Other long term (current) drug therapy; Z88.8 Allergy status to other drugs, medicaments and biological substances
CPT/HCPCS: 36415; 80048; 80076; 83690; 85025; 96372; 99284; J0780; J1885

== ENCOUNTER 2024-02-25 10:14 | Emergency (ER) | payer MEDICAID, OTHER ==
[~2024-02-25] VITALS: Ht 182.9 cm; Wt 90.7 kg
[~2024-02-25 10:14] MED LIST changes: +TRAM-748 PO
[2024-02-25 10:29] VITALS: BP 142/65; PULSE 85; RESP 18; TEMP 97.7; O2SAT 99
[2024-02-25 10:43] VITALS: BP 171/90; PULSE 83; RESP 12; TEMP 97.7; O2SAT 99
[2024-02-25 11:23] LABS: BASOPHILS % (AUTO) 0.6 % (0.0-2.0); EOSINOPHILS # (AUTO) 0.2 K/uL (0-0.4); EOSINOPHILS % (AUTO) 2.3 % (0.0-4.0); HEMATOCRIT 33.8 % (36-52); HEMOGLOBIN 11.4 g/dL (12.0-18.0); LYMPHOCYTES # (AUTO) 1.3 K/uL (2.0-11.5); LYMPHOCYTES % (AUTO) 16.2 % (20.5-51.1); MEAN CORPUSCULAR HEMOGLOBIN 28 pg (27-31); MEAN CORPUSCULAR HGB CONC 34 g/dL (33-37); MEAN CORPUSCULAR VOLUME 82.9 fL (80-94); MONOCYTES # (AUTO) 0.5 K/uL (0.8-1.0); MONOCYTES % (AUTO) 6.5 % (1.7-9.3); NEUTROPHILS # (AUTO) 5.9 K/uL (1.8-7.7); NEUTROPHILS % (AUTO) 74.4 % (42.2-75.2); PLATELET COUNT (AUTO) 294 K/uL (140-450); RED BLOOD CELL COUNT(AUTO) 4.08 MIL/uL (4.20-6.10); RED CELL DISTRIBUTION WIDTH 17.1 % (11.6-13.7); WHITE BLOOD COUNT (AUTO) 7.9 K/uL (4.8-10.8)
[2024-02-25 11:33] LABS: ANION GAP 13.6 (8-16); CALCIUM 8.6 mg/dL (8.5-10.1); CARBON DIOXIDE 24.4 mmol/L (21-32); CREATININE 1.3 mg/dL (0.6-1.3)
[2024-02-25] MEDS: METOCLOPRAMIDE 10 MG/2 ML INJ VIAL IVP ONE (11:33)
[2024-02-25] MEDS: NACL 0.9% 1,000 ML IV ONE (11:33)
[2024-02-25 11:38] LABS: ALBUMIN 3.2 g/dL (3.4-5.0); BILIRUBIN,DIRECT 0.1 mg/dL (0.0-0.3); TOTAL BILIRUBIN 0.3 mg/dL (0.0-1.0); TOTAL PROTEIN, SERUM 7.5 g/dL (6.4-8.2)
== END 2024-02-25 12:12 | disposition left against medical advice (07) ==
LOC: MED 10:14
DX: E11.43 Type 2 diabetes mellitus with diabetic autonomic (poly)neuropathy (principal); K31.84 Gastroparesis; K21.9 Gastro-esophageal reflux disease without esophagitis; I10 Essential (primary) hypertension; F12.90 Cannabis use, unspecified, uncomplicated; Z79.4 Long term (current) use of insulin; Z79.899 Other long term (current) drug therapy
CPT/HCPCS: 36415; 80048; 80076; 83690; 85025; 96361; 96374; 99283; J2765; J7030

== ENCOUNTER 2024-03-16 05:46 | Inpatient (IN) | payer MEDICAID ==
[~2024-03-16] VITALS: Ht 182.9 cm; Wt 88.0 kg
[~2024-03-16 05:46] MED LIST changes: +ONDA-189 PO; -ONDA4ODT2 PO
[2024-03-16 05:53] VITALS: BP 196/106; PULSE 114; RESP 24; TEMP 96.7; O2SAT 100
[2024-03-16] MEDS ORDERED: ONDANSETRON 4 MG/2 ML VIAL ONE (06:20)
[2024-03-16] MEDS: ONDANSETRON 4 MG/2 ML VIAL IVP ONE (06:27)
[2024-03-16] MEDS: NACL 0.9% 1,000 ML IV ONE ×2 (06:30→09:00)
[2024-03-16] MEDS: MORPHINE SULFATE 4 MG/ML SYR IVP ONE (06:39)
[2024-03-16] MEDS: LORazepam 2 MG/ML VIAL IVP ONE (07:10)
[2024-03-16 08:10] LABS: BASOPHILS % (AUTO) 0.3 % (0.0-2.0); EOSINOPHILS # (AUTO) 0.1 K/uL (0-0.4); EOSINOPHILS % (AUTO) 0.5 % (0.0-4.0); HEMATOCRIT 35.6 % (36-52); HEMOGLOBIN 11.8 g/dL (12.0-18.0); LYMPHOCYTES # (AUTO) 0.6 K/uL (2.0-11.5); LYMPHOCYTES % (AUTO) 4.8 % (20.5-51.1); MEAN CORPUSCULAR HEMOGLOBIN 27 pg (27-31); MEAN CORPUSCULAR HGB CONC 33 g/dL (33-37); MEAN CORPUSCULAR VOLUME 82.4 fL (80-94); MONOCYTES # (AUTO) 0.8 K/uL (0.8-1.0); MONOCYTES % (AUTO) 6.1 % (1.7-9.3); NEUTROPHILS # (AUTO) 11.3 K/uL (1.8-7.7); NEUTROPHILS % (AUTO) 88.3 % (42.2-75.2); PLATELET COUNT (AUTO) 157 K/uL (140-450); RED BLOOD CELL COUNT(AUTO) 4.33 MIL/uL (4.20-6.10); RED CELL DISTRIBUTION WIDTH 17.5 % (11.6-13.7); WHITE BLOOD COUNT (AUTO) 12.8 K/uL (4.8-10.8)
[2024-03-16 08:31] LABS: ANION GAP 15.9 (8-16); CALCIUM 8.1 mg/dL (8.5-10.1); CARBON DIOXIDE 21.9 mmol/L (21-32); CREATININE 2.1 mg/dL (0.6-1.3); POTASSIUM 3.8 mmol/L (3.5-5.1)
[2024-03-16 08:55] LABS: ALANINE AMINOTRANSFERASE 21 U/L (12-78); ALBUMIN 3.4 g/dL (3.4-5.0); ALKALINE PHOSPHATASE 106 U/L (50-136); ASPARTATE AMINOTRANSFERASE 18 U/L (15-37); BILIRUBIN,DIRECT 0.1 mg/dL (0.0-0.3); LIPASE 44 U/L (16-77); TOTAL BILIRUBIN 0.3 mg/dL (0.0-1.0); TOTAL PROTEIN, SERUM 7.7 g/dL (6.4-8.2)
[2024-03-16] MEDS ORDERED: ACETAMINOPHEN 325 MG TAB PO PRN (09:35)
[2024-03-16] MEDS ORDERED: ONDANSETRON 4 MG/2 ML VIAL IVP PRN (09:35)
[2024-03-16] MEDS: amLODIPine 5 MG TAB PO ONE (10:06)
[2024-03-16] MEDS: MORPHINE SULFATE 2 MG/ML SYR IVP PRN (11:03)
[2024-03-16] MEDS ORDERED: AMLO-3 PO (11:10)
[2024-03-16] MEDS ORDERED: METF-352 PO (11:10)
[2024-03-16] MEDS ORDERED: GLIP5TAB22 PO (11:10)
[2024-03-16] MEDS ORDERED: OMEP-283 PO (11:10)
[2024-03-16 11:13] LABS: AMPHETAMINE, URINE NEGATIVE ng/ml (NEG <=1000); BARBITURATE, URINE NEGATIVE ng/ml (NEG <=200); BENZODIAZEPINE, URINE NEGATIVE ng/mL (NEG <=200); COCAINE, URINE NEGATIVE ng/mL (NEG <=300); PHENCYCLIDINE SCREEN,URINE NEGATIVE ng/mL (NEG <=25)
[2024-03-16 11:20] LABS: CANNABINOID, URINE POSITIVE ng/mL (NEG <=50); OPIATE, URINE POSITIVE ng/mL (NEG <=2000)
[2024-03-16] MEDS: NACL 0.9% 1,000 ML IV SCH (11:24)
[2024-03-16 11:37] VITALS: BP 187/111; PULSE 109; RESP 16; TEMP 99.5; O2SAT 95
[2024-03-16] MEDS ORDERED: DEXTROSE 50% 50 ML SYR IVP PRN (11:40)
[2024-03-16] MEDS: hydrALAZINE 20 MG/ML VIAL IVP PRN (13:08)
[2024-03-16] MEDS: MORPHINE SULFATE 2 MG/ML SYR IVP SCH (13:22)
[2024-03-16] MEDS: HYDROcodone/APAP 5/325 MG 1 TAB TAB PO PRN (14:56)
[2024-03-16 16:00] VITALS: BP 130/79; PULSE 120; RESP 16; TEMP 98.9; O2SAT 99
[2024-03-16] MEDS: BLOOD GLUCOSE MONITORING 1 DEV DEV FS SCH (17:39)
[2024-03-16] MEDS: INSULIN LISPRO SLIDING SCALE 100 UNITS/ML VIAL SUBQ PRN (17:42)
[2024-03-16 19:54] VITALS: BP 106/76; PULSE 109; RESP 18; TEMP 97.8; O2SAT 97
[2024-03-16 20:01] VITALS: PULSE 109; RESP 18; O2SAT 97
[2024-03-16] MEDS: PANTOPRAZOLE 40 MG INJ VIAL IVP SCH (20:26)
[2024-03-17 04:00] VITALS: BP 145/86; PULSE 84; RESP 18; TEMP 98; O2SAT 98
[2024-03-17 06:50] LABS: BASOPHILS % (AUTO) 0.6 % (0.0-2.0); EOSINOPHILS # (AUTO) 0.1 K/uL (0-0.4); EOSINOPHILS % (AUTO) 1.6 % (0.0-4.0); HEMOGLOBIN 9.8 g/dL (12.0-18.0); LYMPHOCYTES # (AUTO) 1.6 K/uL (2.0-11.5); LYMPHOCYTES % (AUTO) 24.5 % (20.5-51.1); MEAN CORPUSCULAR HEMOGLOBIN 28 pg (27-31); MEAN CORPUSCULAR HGB CONC 34 g/dL (33-37); MEAN CORPUSCULAR VOLUME 82.6 fL (80-94); MONOCYTES # (AUTO) 0.7 K/uL (0.8-1.0); MONOCYTES % (AUTO) 11.3 % (1.7-9.3); NEUTROPHILS # (AUTO) 4.1 K/uL (1.8-7.7); PLATELET COUNT (AUTO) 252 K/uL (140-450); RED BLOOD CELL COUNT(AUTO) 3.52 MIL/uL (4.20-6.10); WHITE BLOOD COUNT (AUTO) 6.6 K/uL (4.8-10.8)
[2024-03-17 07:06] LABS: ANION GAP 11.6 (8-16); CALCIUM 7.8 mg/dL (8.5-10.1); CARBON DIOXIDE 25.1 mmol/L (21-32); CREATININE 1.3 mg/dL (0.6-1.3); POTASSIUM 3.7 mmol/L (3.5-5.1)
[2024-03-17 08:00] VITALS: PULSE 79; RESP 20; O2SAT 98
[2024-03-17 13:18] VITALS: BP 158/89; PULSE 79; RESP 20; TEMP 98
== END 2024-03-17 13:43 | disposition home or self-care (01) | DRG 48 ==
LOC: MED 05:46 → MTU 09:37
PROVIDERS: ADMIT Internal Medicine; ATTEND Internal Medicine
DX: E11.43 Type 2 diabetes mellitus with diabetic autonomic (poly)neuropathy (principal); N17.0 Acute kidney failure with tubular necrosis; G89.29 Other chronic pain; K31.84 Gastroparesis; I10 Essential (primary) hypertension; K21.9 Gastro-esophageal reflux disease without esophagitis; Z79.84 Long term (current) use of oral hypoglycemic drugs; Z79.899 Other long term (current) drug therapy; Z88.8 Allergy status to other drugs, medicaments and biological substances; R65.10 Systemic inflammatory response syndrome (SIRS) of non-infectious origin without acute organ dysfunction
CPT/HCPCS: 36415; 71045; 80048; 80076; 80305; 82948; 83690; 83735; 84484; 85025; 87081; 93005; 96361; 96374; 96375; 99285; C9113; J0360; J1815; J2060; J2270; J2405

== ENCOUNTER 2024-03-29 10:36 | Emergency (ER) | payer MEDICAID, OTHER ==
[~2024-03-29] VITALS: Ht 182.9 cm; Wt 90.7 kg
[~2024-03-29 10:36] MED LIST changes: -ACET-2619 PO; -ACET-503 PO; -ALUM355S59 PO; -IBUP-2213 PO; -MAG-43 PO; -METO-486 PO; -ONDA-188 PO; -ONDA-188 SL; -ONDA-189 PO; -TRAM-748 PO
[2024-03-29 10:45] VITALS: BP 140/113; PULSE 113; RESP 22; TEMP 97.7; O2SAT 100
[2024-03-29 11:03] VITALS: TEMP 97.8
[2024-03-29] MEDS: HALOPERIDOL IM 5 MG/ML VIAL IM ONE (11:33)
[2024-03-29] MEDS: MIDAZOLAM 5 MG/1 ML VIAL IM ONE (11:36)
[2024-03-29 11:48] LABS: BASOPHILS # (AUTO) 0.1 K/uL (0.00-0.22); BASOPHILS % (AUTO) 0.7 % (0.0-2.0); EOSINOPHILS # (AUTO) 0.1 K/uL (0-0.4); EOSINOPHILS % (AUTO) 0.8 % (0.0-4.0); HEMATOCRIT 36.4 % (36-52); HEMOGLOBIN 11.9 g/dL (12.0-18.0); LYMPHOCYTES % (AUTO) 11.4 % (20.5-51.1); MEAN CORPUSCULAR HEMOGLOBIN 27 pg (27-31); MEAN CORPUSCULAR HGB CONC 33 g/dL (33-37); MEAN CORPUSCULAR VOLUME 82.6 fL (80-94); MONOCYTES # (AUTO) 0.5 K/uL (0.8-1.0); NEUTROPHILS # (AUTO) 7.2 K/uL (1.8-7.7); NEUTROPHILS % (AUTO) 81.1 % (42.2-75.2); PLATELET COUNT (AUTO) 299 K/uL (140-450); RED BLOOD CELL COUNT(AUTO) 4.41 MIL/uL (4.20-6.10); RED CELL DISTRIBUTION WIDTH 16.7 % (11.6-13.7); WHITE BLOOD COUNT (AUTO) 8.9 K/uL (4.8-10.8)
[2024-03-29 12:07] LABS: ANION GAP 17.2 (8-16); CALCIUM 10.1 mg/dL (8.5-10.1); CARBON DIOXIDE 23.6 mmol/L (21-32); CREATININE 1.4 mg/dL (0.6-1.3); POTASSIUM 3.8 mmol/L (3.5-5.1)
[2024-03-29 12:12] LABS: ALBUMIN 3.7 g/dL (3.4-5.0); BILIRUBIN,DIRECT 0.1 mg/dL (0.0-0.3); TOTAL BILIRUBIN 0.4 mg/dL (0.0-1.0); TOTAL PROTEIN, SERUM 8.4 g/dL (6.4-8.2)
[2024-03-29 13:39] VITALS: BP 139/86; PULSE 90; RESP 12; O2SAT 98
== END 2024-03-29 13:39 | disposition home or self-care (01) ==
LOC: MED 10:36
DX: E11.22 Type 2 diabetes mellitus with diabetic chronic kidney disease (principal); I12.9 Hypertensive chronic kidney disease with stage 1 through stage 4 chronic kidney disease, or unspecified chronic kidney disease; N18.9 Chronic kidney disease, unspecified; E11.43 Type 2 diabetes mellitus with diabetic autonomic (poly)neuropathy; K31.84 Gastroparesis; R11.10 Vomiting, unspecified; F12.90 Cannabis use, unspecified, uncomplicated; K21.9 Gastro-esophageal reflux disease without esophagitis; Z79.899 Other long term (current) drug therapy; Z88.8 Allergy status to other drugs, medicaments and biological substances
CPT/HCPCS: 36415; 80048; 80076; 83690; 85025; 96372; 99284; J1630; J2250

== ENCOUNTER 2024-04-03 10:38 | Emergency (ER) | payer OTHER ==
[~2024-04-03] VITALS: Ht 182.9 cm; Wt 90.7 kg
[2024-04-03 10:52] VITALS: BP 134/102; PULSE 108; RESP 20; TEMP 97.3; O2SAT 99
[2024-04-03 11:28] VITALS: BP 134/102; PULSE 108; RESP 20; TEMP 97.3; O2SAT 99
[2024-04-03] MEDS: MORPHINE SULFATE 4 MG/ML SYR IM ONE (11:29)
[2024-04-03] MEDS: ONDANSETRON 4 MG ODT PO ONE (11:29)
== END 2024-04-03 11:28 | disposition home or self-care (01) ==
LOC: MED 10:38
DX: K31.84 Gastroparesis (principal); E11.9 Type 2 diabetes mellitus without complications; K21.9 Gastro-esophageal reflux disease without esophagitis; I10 Essential (primary) hypertension; Z90.49 Acquired absence of other specified parts of digestive tract; Z79.84 Long term (current) use of oral hypoglycemic drugs; Z79.899 Other long term (current) drug therapy; Z88.8 Allergy status to other drugs, medicaments and biological substances
CPT/HCPCS: 82948; 96372; 99283; J2270; Q0162

== ENCOUNTER 2024-04-09 21:19 | Emergency (ER) | payer OTHER ==
[2024-04-10] MEDS ORDERED: METO-486 PO (06:08)
== END 2024-04-09 21:30 | disposition left against medical advice (07) ==
LOC: MED 21:19
DX: R11.0 Nausea (principal); Z53.21 Procedure and treatment not carried out due to patient leaving prior to being seen by health care provider

== ENCOUNTER 2024-04-10 04:00 | Emergency (ER) | payer OTHER ==
[~2024-04-10] VITALS: Ht 182.9 cm; Wt 90.7 kg
[2024-04-10 04:03] VITALS: BP 152/129; PULSE 112; RESP 18; TEMP 97.4; O2SAT 100
[2024-04-10 04:47] VITALS: BP 151/109; PULSE 103; RESP 18; O2SAT 98
[2024-04-10] MEDS: HALOPERIDOL IM 5 MG/ML VIAL IM ONE (04:49)
[2024-04-10] MEDS: MIDAZOLAM 5 MG/1 ML VIAL IM ONE (04:55)
[2024-04-10 05:44] LABS: APPEARANCE,URINE CLEAR (CLEAR); BILIRUBIN,URINE NEGATIVE (NEGATIVE); BLOOD, URINE 1+ (NEGATIVE); COLOR,URINE YELLOW (YELLOW); LEUKOCYTE ESTERASE ,URINE NEGATIVE (NEGATIVE); NITRITE, URINE NEGATIVE (NEGATIVE); PH,URINE 5.5 (5.0-9.0); PROTEIN,URINE 3+ (NEGATIVE); UGLUCOSE TRACE (NEGATIVE); UROBILINOGEN,URINE 0.2 EU/dL (0.2 - 1)
[2024-04-10 06:07] LABS: BACTERIA,URINE >30 (MANY) /HPF (None Seen); MUCUS,URINE 1+ /LPF (None Seen); RBC,URINE 0-5 /HPF (0-5); SQUAMOUS EPITHELIAL CELL,UR 0-3 (FEW) /LPF (0-3 (FEW)); WBC,URINE 0-5 /HPF (0-5)
[2024-04-10] MEDS ORDERED: METO-486 PO (06:08)
== END 2024-04-10 06:40 | disposition home or self-care (01) ==
LOC: MED 04:00
DX: G89.29 Other chronic pain (principal); R10.13 Epigastric pain; R11.2 Nausea with vomiting, unspecified; E11.9 Type 2 diabetes mellitus without complications; I10 Essential (primary) hypertension; K21.9 Gastro-esophageal reflux disease without esophagitis; Z79.1 Long term (current) use of non-steroidal anti-inflammatories (NSAID); Z79.84 Long term (current) use of oral hypoglycemic drugs; Z79.899 Other long term (current) drug therapy; Z88.8 Allergy status to other drugs, medicaments and biological substances
CPT/HCPCS: 81001; 96372; 99284; J1630; J2250

== ENCOUNTER 2024-04-13 02:47 | Emergency (ER) | payer OTHER ==
[~2024-04-13] VITALS: Ht 182.9 cm; Wt 90.7 kg
[~2024-04-13 02:47] MED LIST changes: +METO-486 PO
[2024-04-13 02:49] VITALS: BP 148/76; PULSE 88; RESP 20; TEMP 97.2; O2SAT 99
[2024-04-13 04:33] VITALS: O2SAT 99
[2024-04-13 06:05] LABS: BARBITURATE, URINE NEGATIVE ng/ml (NEG <=200)
[2024-04-13 06:06] LABS: AMPHETAMINE, URINE NEGATIVE ng/ml (NEG <=1000); BENZODIAZEPINE, URINE NEGATIVE ng/mL (NEG <=200); CANNABINOID, URINE POSITIVE ng/mL (NEG <=50); COCAINE, URINE NEGATIVE ng/mL (NEG <=300); OPIATE, URINE NEGATIVE ng/mL (NEG <=2000); PHENCYCLIDINE SCREEN,URINE NEGATIVE ng/mL (NEG <=25)
[2024-04-13 06:09] LABS: BASOPHILS % (AUTO) 0.2 % (0.0-2.0); EOSINOPHILS # (AUTO) 0.1 K/uL (0-0.4); EOSINOPHILS % (AUTO) 0.6 % (0.0-4.0); HEMATOCRIT 34.3 % (36-52); HEMOGLOBIN 11.5 g/dL (12.0-18.0); LYMPHOCYTES # (AUTO) 1.5 K/uL (2.0-11.5); LYMPHOCYTES % (AUTO) 14.3 % (20.5-51.1); MEAN CORPUSCULAR HEMOGLOBIN 28 pg (27-31); MEAN CORPUSCULAR HGB CONC 34 g/dL (33-37); MEAN CORPUSCULAR VOLUME 81.9 fL (80-94); MONOCYTES # (AUTO) 0.4 K/uL (0.8-1.0); MONOCYTES % (AUTO) 4.1 % (1.7-9.3); NEUTROPHILS # (AUTO) 8.4 K/uL (1.8-7.7); NEUTROPHILS % (AUTO) 80.8 % (42.2-75.2); PLATELET COUNT (AUTO) 257 K/uL (140-450); RED BLOOD CELL COUNT(AUTO) 4.18 MIL/uL (4.20-6.10); WHITE BLOOD COUNT (AUTO) 10.4 K/uL (4.8-10.8)
[2024-04-13 06:33] LABS: ALBUMIN 3.9 g/dL (3.4-5.0); ANION GAP 17.6 (8-16); CALCIUM 9.9 mg/dL (8.5-10.1); CARBON DIOXIDE 20.9 mmol/L (21-32); CREATININE 1.7 mg/dL (0.6-1.3); POTASSIUM 4.5 mmol/L (3.5-5.1); TOTAL BILIRUBIN 0.5 mg/dL (0.0-1.0); TOTAL PROTEIN, SERUM 8.6 g/dL (6.4-8.2)
[2024-04-13] MEDS: NACL 0.9% 1,000 ML IV ONE (07:08)
[2024-04-13] MEDS: METOCLOPRAMIDE 10 MG/2 ML INJ VIAL IVP ONE (07:10)
[2024-04-13] MEDS ORDERED: MORPHINE SULFATE 4 MG/ML SYR IVP ONE (08:00)
[2024-04-13] MEDS: HALOPERIDOL IM 5 MG/ML VIAL IVP ONE (08:23)
[2024-04-13 10:41] VITALS: BP 148/76; PULSE 88; RESP 20; TEMP 97.2; O2SAT 99
== END 2024-04-13 10:00 | disposition left against medical advice (07) ==
LOC: MED 02:47
DX: R11.2 Nausea with vomiting, unspecified (principal); R05.9 Cough, unspecified; E11.9 Type 2 diabetes mellitus without complications; K21.9 Gastro-esophageal reflux disease without esophagitis; I10 Essential (primary) hypertension; Z79.84 Long term (current) use of oral hypoglycemic drugs; Z79.2 Long term (current) use of antibiotics; Z79.1 Long term (current) use of non-steroidal anti-inflammatories (NSAID); Z79.899 Other long term (current) drug therapy; Z88.8 Allergy status to other drugs, medicaments and biological substances
CPT/HCPCS: 36415; 74177; 80053; 80305; 83690; 85025; 93005; 96361; 96374; 96375; 99285; J1630; J2765; J7030; Q9967

== ENCOUNTER 2024-05-14 04:10 | Emergency (ER) | payer OTHER ==
[~2024-05-14] VITALS: Ht 182.9 cm; Wt 90.7 kg
[~2024-05-14 04:10] MED LIST changes: -ACET-10509 PO; +ACET500T99 PO
[2024-05-14 04:20] VITALS: BP 171/114; PULSE 124; RESP 22; TEMP 97.5; O2SAT 98
[2024-05-14 04:47] LABS: BASOPHILS # (AUTO) 0.1 K/uL (0.00-0.22); BASOPHILS % (AUTO) 0.8 % (0.0-2.0); EOSINOPHILS # (AUTO) 0.2 K/uL (0-0.4); EOSINOPHILS % (AUTO) 1.4 % (0.0-4.0); HEMATOCRIT 34.3 % (36-52); HEMOGLOBIN 11.3 g/dL (12.0-18.0); LYMPHOCYTES # (AUTO) 1.7 K/uL (2.0-11.5); LYMPHOCYTES % (AUTO) 14.5 % (20.5-51.1); MEAN CORPUSCULAR HEMOGLOBIN 27 pg (27-31); MEAN CORPUSCULAR HGB CONC 33 g/dL (33-37); MEAN CORPUSCULAR VOLUME 82.7 fL (80-94); MONOCYTES # (AUTO) 0.7 K/uL (0.8-1.0); MONOCYTES % (AUTO) 5.8 % (1.7-9.3); NEUTROPHILS # (AUTO) 8.9 K/uL (1.8-7.7); NEUTROPHILS % (AUTO) 77.5 % (42.2-75.2); PLATELET COUNT (AUTO) 282 K/uL (140-450); RED BLOOD CELL COUNT(AUTO) 4.15 MIL/uL (4.20-6.10); RED CELL DISTRIBUTION WIDTH 17.2 % (11.6-13.7); WHITE BLOOD COUNT (AUTO) 11.5 K/uL (4.8-10.8)
[2024-05-14] MEDS: NACL 0.9% 1,000 ML IV ONE ×2 (04:48→05:46)
[2024-05-14] MEDS: MORPHINE SULFATE 2 MG/ML SYR IVP STA (04:49)
[2024-05-14] MEDS: diphenhydrAMINE 50 MG/ML VIAL IVP ONE (04:49)
[2024-05-14] MEDS: HALOPERIDOL IM 5 MG/ML VIAL IM ONE (04:49)
[2024-05-14 05:11] LABS: ALBUMIN 3.8 g/dL (3.4-5.0); ANION GAP 20.2 (8-16); CALCIUM 9.5 mg/dL (8.5-10.1); CREATININE 1.4 mg/dL (0.6-1.3); POTASSIUM 4.2 mmol/L (3.5-5.1); TOTAL BILIRUBIN 0.4 mg/dL (0.0-1.0); TOTAL PROTEIN, SERUM 8.2 g/dL (6.4-8.2)
[2024-05-14] MEDS ORDERED: PROCHLORPERAZINE 10 MG/2 ML VIAL IVP ONE (05:15)
[2024-05-14] MEDS ORDERED: LORazepam 2 MG/ML VIAL IVP ONE ×2 (05:15→05:20)
[2024-05-14] MEDS ORDERED: HYDR25CA1 PO ×2 (05:49→06:40)
[2024-05-14] MEDS ORDERED: FAMO-92 PO (05:49)
[2024-05-14] MEDS ORDERED: MAG355OR2 PO ×2 (05:49→06:40)
[2024-05-14] MEDS ORDERED: METO-486 PO ×2 (05:49→06:40)
[2024-05-14] MEDS ORDERED: ALUMINUM HYD/MAG/SIMETHICONE 30 ML UDC ONE (06:00)
[2024-05-14] MEDS ORDERED: DICYCLOMINE HCL LIQUID 10 MG/5 ML UDC ONE (06:00)
[2024-05-14] MEDS: HYDROcodone/APAP 5/325 MG 1 TAB TAB PO ONE (06:05)
[2024-05-14] MEDS: DICYCLOMINE HCL LIQUID 20 MG, ALUMINUM HYD/MAG/SIMETHICONE 30 ML, LIDOCAINE VISCOUS 2% ... PO ONE (06:06)
[2024-05-14 06:20] VITALS: BP 179/86; PULSE 88; RESP 20; TEMP 98; O2SAT 99
[2024-05-14 06:36] LABS: CANNABINOID, URINE POSITIVE ng/mL (NEG <=50)
[2024-05-14 06:37] LABS: AMPHETAMINE, URINE NEGATIVE ng/ml (NEG <=1000); BARBITURATE, URINE NEGATIVE ng/ml (NEG <=200); BENZODIAZEPINE, URINE NEGATIVE ng/mL (NEG <=200); COCAINE, URINE NEGATIVE ng/mL (NEG <=300); OPIATE, URINE POSITIVE ng/mL (NEG <=2000); PHENCYCLIDINE SCREEN,URINE NEGATIVE ng/mL (NEG <=25)
== END 2024-05-14 06:20 | disposition home or self-care (01) ==
LOC: MED 04:10
DX: R11.2 Nausea with vomiting, unspecified (principal); R10.13 Epigastric pain; G89.29 Other chronic pain; Y90.0 Blood alcohol level of less than 20 mg/100 ml; E11.9 Type 2 diabetes mellitus without complications; F12.90 Cannabis use, unspecified, uncomplicated; I10 Essential (primary) hypertension; K21.9 Gastro-esophageal reflux disease without esophagitis; Z79.84 Long term (current) use of oral hypoglycemic drugs; Z79.899 Other long term (current) drug therapy; Z88.8 Allergy status to other drugs, medicaments and biological substances
CPT/HCPCS: 36415; 80053; 80305; 83690; 85025; 96361; 96372; 96374; 96375; 99284; G0482; J1200; J1630; J2270; J7030; J0780; J2060

== ENCOUNTER 2024-07-12 06:24 | Emergency (ER) | payer OTHER ==
[~2024-07-12] VITALS: Ht 182.9 cm; Wt 94.3 kg
[~2024-07-12 06:24] MED LIST changes: +HYDR25CA1 PO; +MAG355OR2 PO
[2024-07-12 06:29] VITALS: BP 191/110; PULSE 114; RESP 18; TEMP 98.3; O2SAT 99
[2024-07-12] MEDS ORDERED: ONDANSETRON 4 MG/2 ML VIAL IVP ONE (06:50)
[2024-07-12] MEDS: NACL 0.9% 1,000 ML IV ONE (07:54)
[2024-07-12] MEDS: MORPHINE SULFATE 4 MG/ML SYR IVP ONE (07:55)
[2024-07-12] MEDS: METOCLOPRAMIDE 10 MG/2 ML INJ VIAL IVP ONE (07:56)
[2024-07-12] MEDS: diphenhydrAMINE 50 MG/ML VIAL IVP ONE (08:14)
[2024-07-12] MEDS: ONDANSETRON 4 MG/2 ML VIAL IVP ONE (08:14)
[2024-07-12 08:21] LABS: BASOPHILS % (AUTO) 0.4 % (0.0-2.0); HEMATOCRIT 36.2 % (36-52); HEMOGLOBIN 11.8 g/dL (12.0-18.0); LYMPHOCYTES # (AUTO) 0.6 K/uL (2.0-11.5); LYMPHOCYTES % (AUTO) 7.7 % (20.5-51.1); MEAN CORPUSCULAR HEMOGLOBIN 27 pg (27-31); MEAN CORPUSCULAR HGB CONC 33 g/dL (33-37); MEAN CORPUSCULAR VOLUME 82.3 fL (80-94); MONOCYTES # (AUTO) 0.3 K/uL (0.8-1.0); MONOCYTES % (AUTO) 4.2 % (1.7-9.3); NEUTROPHILS # (AUTO) 6.9 K/uL (1.8-7.7); NEUTROPHILS % (AUTO) 87.7 % (42.2-75.2); PLATELET COUNT (AUTO) 215 K/uL (140-450); RED CELL DISTRIBUTION WIDTH 16.9 % (11.6-13.7); WHITE BLOOD COUNT (AUTO) 7.9 K/uL (4.8-10.8)
[2024-07-12 08:29] LABS: ANION GAP 13.2 (8-16); CALCIUM 9.1 mg/dL (8.5-10.1); CARBON DIOXIDE 26.8 mmol/L (21-32); CREATININE 1.4 mg/dL (0.6-1.3)
[2024-07-12 08:30] LABS: APPEARANCE,URINE CLEAR (CLEAR); BILIRUBIN,URINE NEGATIVE (NEGATIVE); BLOOD, URINE TRACE-L (NEGATIVE); COLOR,URINE YELLOW (YELLOW); LEUKOCYTE ESTERASE ,URINE NEGATIVE (NEGATIVE); NITRITE, URINE NEGATIVE (NEGATIVE); PH,URINE 7.5 (5.0-9.0); PROTEIN,URINE 2+ (NEGATIVE); UGLUCOSE 2+ (NEGATIVE); UROBILINOGEN,URINE 0.2 EU/dL (0.2 - 1)
[2024-07-12 08:33] LABS: INR 0.92 (0.8-1.2); PARTIAL THROMBOPLASTIN TIME 22.3 secs (22-35.6); PROTHROMBIN TIME 9.7 secs (10.8-13.4)
[2024-07-12 08:34] LABS: ALBUMIN 3.5 g/dL (3.4-5.0); BILIRUBIN,DIRECT 0.1 mg/dL (0.0-0.3); TOTAL BILIRUBIN 0.2 mg/dL (0.0-1.0); TOTAL PROTEIN, SERUM 7.5 g/dL (6.4-8.2)
[2024-07-12 08:38] LABS: BACTERIA,URINE 10-30 (MOD) /HPF (None Seen); RBC,URINE 0-5 /HPF (0-5); SQUAMOUS EPITHELIAL CELL,UR 0-3 (FEW) /LPF (0-3 (FEW)); WBC,URINE 0-5 /HPF (0-5)
[2024-07-12 08:41] LABS: AMPHETAMINE, URINE NEGATIVE ng/ml (NEG <=1000); BARBITURATE, URINE NEGATIVE ng/ml (NEG <=200); BENZODIAZEPINE, URINE NEGATIVE ng/mL (NEG <=200); CANNABINOID, URINE POSITIVE ng/mL (NEG <=50); COCAINE, URINE POSITIVE ng/mL (NEG <=300); OPIATE, URINE POSITIVE ng/mL (NEG <=2000); PHENCYCLIDINE SCREEN,URINE NEGATIVE ng/mL (NEG <=25)
[2024-07-12 09:40] VITALS: BP 135/86; PULSE 86; RESP 16; TEMP 98.3; O2SAT 94
== END 2024-07-12 09:40 | disposition home or self-care (01) ==
LOC: MED 06:24
DX: E11.43 Type 2 diabetes mellitus with diabetic autonomic (poly)neuropathy (principal); K31.84 Gastroparesis; R11.2 Nausea with vomiting, unspecified; F12.90 Cannabis use, unspecified, uncomplicated; F14.90 Cocaine use, unspecified, uncomplicated; K21.9 Gastro-esophageal reflux disease without esophagitis; I10 Essential (primary) hypertension; Z79.899 Other long term (current) drug therapy; Z88.8 Allergy status to other drugs, medicaments and biological substances
CPT/HCPCS: 36415; 80048; 80076; 80305; 81001; 83690; 84484; 85025; 85610; 85730; 93005; 96361; 96374; 96375; 99284; J1200; J2270; J2405; J2765; J7030

== ENCOUNTER 2024-07-16 20:18 | Emergency (ER) | payer OTHER ==
[~2024-07-16] VITALS: Ht 182.9 cm; Wt 93.4 kg
[2024-07-16 20:25] VITALS: BP 163/74; PULSE 111; RESP 18; TEMP 98.2; O2SAT 99
[2024-07-16 21:00] VITALS: O2SAT 99
[2024-07-16] MEDS: HALOPERIDOL IM 5 MG/ML VIAL IM ONE (21:10)
[2024-07-16 21:33] LABS: BASOPHILS # (AUTO) 0.1 K/uL (0.00-0.22); BASOPHILS % (AUTO) 1.1 % (0.0-2.0); EOSINOPHILS # (AUTO) 0.1 K/uL (0-0.4); EOSINOPHILS % (AUTO) 1.4 % (0.0-4.0); HEMATOCRIT 33.3 % (36-52); LYMPHOCYTES # (AUTO) 0.8 K/uL (2.0-11.5); LYMPHOCYTES % (AUTO) 8.1 % (20.5-51.1); MEAN CORPUSCULAR HEMOGLOBIN 27 pg (27-31); MEAN CORPUSCULAR HGB CONC 33 g/dL (33-37); MEAN CORPUSCULAR VOLUME 82.1 fL (80-94); MONOCYTES # (AUTO) 0.6 K/uL (0.8-1.0); MONOCYTES % (AUTO) 6.2 % (1.7-9.3); NEUTROPHILS # (AUTO) 8.4 K/uL (1.8-7.7); NEUTROPHILS % (AUTO) 83.2 % (42.2-75.2); PLATELET COUNT (AUTO) 291 K/uL (140-450); RED BLOOD CELL COUNT(AUTO) 4.06 MIL/uL (4.20-6.10); RED CELL DISTRIBUTION WIDTH 17.4 % (11.6-13.7)
[2024-07-16 21:43] LABS: ANION GAP 19.5 (8-16); CALCIUM 9.4 mg/dL (8.5-10.1); CARBON DIOXIDE 22.4 mmol/L (21-32); CREATININE 1.7 mg/dL (0.6-1.3); POTASSIUM 3.9 mmol/L (3.5-5.1)
[2024-07-16 21:49] LABS: ALBUMIN 3.8 g/dL (3.4-5.0); BILIRUBIN,DIRECT 0.1 mg/dL (0.0-0.3); TOTAL BILIRUBIN 0.4 mg/dL (0.0-1.0); TOTAL PROTEIN, SERUM 8.2 g/dL (6.4-8.2)
[2024-07-16] MEDS: diphenhydrAMINE 50 MG/ML VIAL IM ONE (22:12)
[2024-07-16] MEDS: METOCLOPRAMIDE 10 MG/2 ML INJ VIAL IM ONE (22:13)
[2024-07-16 22:49] VITALS: BP 150/76; PULSE 95; RESP 16; TEMP 98.2; O2SAT 99
== END 2024-07-16 22:49 | disposition home or self-care (01) ==
LOC: MED 20:18
DX: G89.29 Other chronic pain (principal); R10.9 Unspecified abdominal pain; R11.2 Nausea with vomiting, unspecified; E11.9 Type 2 diabetes mellitus without complications; I10 Essential (primary) hypertension; K21.9 Gastro-esophageal reflux disease without esophagitis; Z79.899 Other long term (current) drug therapy; Z88.8 Allergy status to other drugs, medicaments and biological substances
CPT/HCPCS: 36415; 80048; 80076; 83690; 85025; 96372; 99284; J1200; J1630; J2765